=== PATIENT | male | born 1970 | race Caucasian/White ===

== ENCOUNTER 2016-10-28 12:19 | Emergency (ER) | payer SELFPAY ==
--- NOTE | 2016-10-28 13:04 | ER Document Report ---
ED Extremity Problem, Lower - General Chief Complaint: Leg Injury Stated Complaint: LEG PAIN Time seen by provider: 13:03 Mode of Arrival: Ambulatory Information source: Patient Notes: 45-year-old male presents to ED for pain in and out at times numbness to his left knee after a accident to his knee 3 weeks ago. He states he was walking into a trailer that carries mulch and the wood gave out below and he fell to the trailer) a wood. He states he has been to [facility] and was supposed to follow-up with also [facility] for an MRI and they moved to accident and has not followed up yet. States that his knee is much better but is still is pretty painful and he wanted to get an MRI. A sling to the patient that we do not do MRIs of been scheduled we do MRIs other emergent at that time. We will re-x-ray the knee and make sure there is no new findings and have him follow-up with the [facility] or so to get his mri TRAVEL OUTSIDE OF THE [place].S[place] IN LAST 30 DAYS: No - HPI Patient complains to provider of: Pain, Swelling Location: Knee Occurred: Other - 3 weeks ago Where: Work Onset/Duration: Intermittent Quality of pain: Achy Severity: Moderate Pain Level: 4 Context: Other Recent injury: Yes - Fell through a piece a rotten Wood 3 weeks ago Associated symptoms: Painful ambulation Exacerbated by: Movement, Walking Relieved by: Nothing - Related Data Allergies/Adverse Reactions: Penicillins Allergy (Verified 10/28/16 12:24) Past Medical History - General Information source: Patient - Social History Smoking Status: Current Every Day Smoker Cigarette use (# per day): Yes - pack per day Chew tobacco use (# tins/day): No Smoking Education Provided: Yes Frequency of alcohol use: None Drug Abuse: None Occupation: [employer] Lives with: Family Family History: Arthritis, Hyperlipidemia, Hypertension, Malignancy Patient has suicidal ideation: No Patient has homicidal ideation: No - Past Medical History Cardiac Medical History: Reports: None Pulmonary Medical History: Reports: None EENT Medical History: Reports: None Neurological Medical History: Reports: None Endocrine Medical History: Reports: Hx Diabetes Mellitus Type 2 Renal/ Medical History: Reports: None Malignancy Medical History: Reports None GI Medical History: Reports: Hx Gastroesophageal Reflux Disease Musculoskeltal Medical History: Reports Hx Arthritis Skin Medical History: Reports None Psychiatric Medical History: Reports: None Traumatic Medical History: Reports: Hx Pneumothorax Infectious Medical History: Reports: None Past Surgical History: Reports: Other Review of Systems - Review of Systems Constitutional: No symptoms reported EENT: No symptoms reported Cardiovascular: No symptoms reported Respiratory: No symptoms reported Gastrointestinal: No symptoms reported Genitourinary: No symptoms reported Male Genitourinary: No symptoms reported Musculoskeletal: Joint pain - Left knee, Joint swelling - (The Skin: No symptoms reported Hematologic/Lymphatic: No symptoms reported Neurological/Psychological: No symptoms reported Physical Exam - Vital signs Vitals: Temp Pulse Resp BP Pulse Ox 97.7 F 83 16 134/92 H 99 10/28/16 12:25 10/28/16 12:25 10/28/16 12:25 10/28/16 12:25 10/28/16 12:25 Interpretation: Normal - General General appearance: Appears well, Alert - HEENT Head: Normocephalic, Atraumatic Eyes: Normal Pupils: PERRL - Respiratory Respiratory status: No respiratory distress Chest status: Nontender Breath sounds: Normal Chest palpation: Normal - Cardiovascular Rhythm: Regular Heart sounds: Normal auscultation Murmur: No - Abdominal Inspection: Normal Distension: No distension Bowel sounds: Normal Tenderness: Nontender Organomegaly: No organomegaly - Back Back: Normal, Nontender - Extremities General upper extremity: Normal inspection, Normal color, Normal ROM, Normal strength, Normal temperature General lower extremity: Normal color, Normal temperature, Normal weight bearing. No: Bridget's sign Hip: Normal, Nontender Thigh: Normal, Nontender Knee: Tender, Pain with ROM, Other - Swollen area to left knee states he injured it 3 weeks ago Ankle: Normal, Nontender Foot: Normal, Nontender - Neurological Neuro grossly intact: Yes Cognition: Normal Orientation: AAOx4 Roxana Coma Scale Eye Opening: Spontaneous Roxana Coma Scale Verbal: Oriented Eula Coma Scale Motor: Obeys Commands Roxana Coma Scale Total: 15 Speech: Normal Motor strength normal: LUE, RUE, LLE, RLE Sensory: Normal - Psychological Associated symptoms: Normal affect, Normal mood - Skin Skin Temperature: Warm Skin Moisture: Dry Skin Color: Normal Course - Re-evaluation Re-evalutation: 10/28/16 14:14 Discussed x-ray with patient we'll give a written report to patient to follow- up with [facility]. Instructed patient that we do not do routine MRIs in the ER that he will need to follow-up with [facility] to be order that MRI. - Vital Signs Vital signs: Temp Pulse Resp BP Pulse Ox 98.5 F 72 16 120/72 98 10/28/16 14:30 10/28/16 14:30 10/28/16 14:30 10/28/16 14:30 10/28/16 14:30 - Diagnostic Test Radiology reviewed: Image reviewed, Reports reviewed Discharge - Discharge Clinical Impression: Knee pain, left Qualifiers: Chronicity: acute Qualified Code(s): M25.562 - Pain in left knee Condition: Stable Disposition: HOME, SELF-CARE Additional Instructions: He was seen today for recheck on a knee injury from 3 weeks ago. He requested MRI but we do not do routine MRIs in the emergency room. You will need to follow-up with [facility] to get the MRI rescheduled and done. Your x-ray is negative today we'll send a copy of the x-ray report with you to follow-up with [facility]. ICE & ELEVATION: Apply ice packs frequently against the painful area. Many different schedules are recommended, such as "20 minutes on, 20 minutes off" or "one hour ice, two hours rest." If you need to work, you may need to go longer between ice treatments. You should plan to have the area ice packed AT LEAST one- fourth of the time. The ice should be applied over the wrap, tape, or splint, or over a layer of cloth -- not directly against the skin. Some ice bags have a built-in cloth and can be put directly on the skin. Your injured part should be elevated as much as possible over the next 48 hours. Try to keep the injury above the level of the heart. Avoid use of the injured area. Elevation and rest will decrease the swelling. Anti-Inflammatory Medication You have received a prescription for an antiinflammatory agent. This is an excellent, safe drug for pain control. In addition, it has potent antiinflammatory effects which are beneficial, especially in the treatment of injuries, arthritis, or tendonitis. It's best to take this medicine with food. Persons with ulcer disease or allergy to aspirin should notify their physician of this before taking this drug. Take the medication exactly as prescribed. Don't take additional doses unless instructed to do so by your doctor. If you develop wheezing, shortness of breath, hives, faintness, stomach pain, vomiting, or dark black stools, return for re-evaluation at once. FOLLOW-UP CARE: If you have been referred to a physician for follow-up care, call the physician s office for an appointment as you were instructed or within the next two days. If you experience worsening or a significant change in your symptoms, notify the physician immediately or return to the Emergency Department at any time for re-evaluation. Prescriptions: Naproxen 500 mg PO BIDP PRN #14 tablet PRN Reason: Forms: Smoking Cessation Education, Elevated Blood Pressure
[2016-10-28] MEDS ORDERED: NAPROXEN 250 MG TABLET PO ONE (13:14)
[2016-10-28 14:34] VITALS: BP 120/72
== END 2016-10-28 14:30 | disposition home or self-care (01) ==
LOC: ER 12:19
DX: M25.562 Pain in left knee (principal); M25.462 Effusion, left knee; R20.0 Anesthesia of skin; W13.8XXA Fall from, out of or through other building or structure, initial encounter; Y99.0 Civilian activity done for income or pay; E11.9 Type 2 diabetes mellitus without complications; F17.210 Nicotine dependence, cigarettes, uncomplicated
CPT/HCPCS: 99283

== ENCOUNTER 2017-03-10 12:09 | Emergency (ER) | payer MEDICAID ==
[2017-03-10] MEDS ORDERED: PROCHLORPERAZINE EDISYLATE INJ 10 MG/2 ML VIAL IV ONE (12:22)
[2017-03-10] MEDS ORDERED: DIPHENHYDRAMINE HCL 50 MG/ML VIAL IV ONE (12:22)
--- NOTE | 2017-03-10 12:23 | ER Document Report ---
ED Medical Screen (RME) - General Chief Complaint: Headache Stated Complaint: HEADACHE Time Seen by Provider: 03/10/17 12:14 Mode of Arrival: Ambulatory Information source: Patient Notes: 46-year-old male diabetic who has not been checking his blood sugar presents with complaints of headache over the past few days patient denies any fevers or chills patient notes headache has been waxing waning over the past 3-4 days I have greeted and performed a rapid initial assessment of this patient. A comprehensive ED assessment and evaluation of the patient, analysis of test results and completion of the medical decision making process will be conducted by additional ED providers. PHYSICAL EXAMINATION: GENERAL: Well-appearing, well-nourished and in no acute distress. HEAD: Atraumatic, normocephalic. EYES: Pupils equal round extraocular movements intact, conjunctiva are normal. ENT: Nares patent NECK: Normal range of motion LUNGS: No respiratory distress Musculoskeletal: Normal range of motion NEUROLOGICAL: Normal speech, normal gait. PSYCH: Normal mood, normal affect. SKIN: Warm, Dry, normal turgor, no rashes or lesions noted. TRAVEL OUTSIDE OF THE [place] IN LAST 30 DAYS: No - Related Data Allergies/Adverse Reactions: Penicillins Allergy (Verified 03/10/17 12:11) Past Medical History - Social History Chew tobacco use (# tins/day): No Frequency of alcohol use: Occasional Drug Abuse: None Endocrine Medical History: Reports: Hx Diabetes Mellitus Type 2 Renal/ Medical History: Denies: Hx Peritoneal Dialysis GI Medical History: Reports: Hx Gastroesophageal Reflux Disease Musculoskeltal Medical History: Reports Hx Arthritis Traumatic Medical History: Reports: Hx Pneumothorax Surgical Hx: Negative Past Surgical History: Reports: Other - Immunizations Hx Diphtheria, Pertussis, Tetanus Vaccination: Yes Physical Exam - Vital signs Vitals: Temp Pulse Resp BP Pulse Ox 97.9 F 87 18 132/74 H 97 03/10/17 12:11 03/10/17 12:11 03/10/17 12:11 03/10/17 12:11 03/10/17 12:11 Course - Vital Signs Vital signs: Temp Pulse Resp BP Pulse Ox 97.9 F 87 18 132/74 H 97 03/10/17 12:11 03/10/17 12:11 03/10/17 12:11 03/10/17 12:11 03/10/17 12:11
[2017-03-10] MEDS ORDERED: METFORMIN HCL 500 MG TABLET PO ONE (12:42)
[2017-03-10] MEDS ORDERED: GLIPIZIDE 10 MG TABLET PO ONE (12:42)
--- NOTE | 2017-03-10 12:42 | ER Document Report ---
ED Headache - General Mode of Arrival: Ambulatory Information source: Patient TRAVEL OUTSIDE OF THE [place] IN LAST 30 DAYS: No - HPI Patient complains to provider of: Headache Onset: Other <RAMOS JOHNSON - Last Filed: 03/10/17 12:42> <DAKOTA SANDERS - Last Filed: 03/10/17 14:37> - General Chief Complaint: Headache Stated Complaint: HEADACHE Time Seen by Provider: 03/10/17 12:14 - HPI Notes: Patient is a 46-year-old male presented emergency department for headache. Patient states his headache has been present for 4 days now. Patient's headache was waxing and waning at first and relieved with Aleve however, now the patient's headache is persistent. Patient states his headache is located across his forehead and into his temples. Patient denies any fever or chills. Patient states that he has not been sleeping well at night because of his headaches, and states that he has been drinking Gatorade and water. Patient is a diabetic and has not been checking his blood glucose levels. Patient recently moved here from [place] and does not have a primary care physician in the area. Patient does have medicaid. Patient takes Metformin and glipizide for his diabetes and he states he has ran out of both of these medications x 1 week. Patient also takes a medication for mood swings but he does not know the name of it; patient gets his mood medication from [facility] in [place], [place]. Patient is allergic to penicillins. (RAMOS JOHNSON) - Related Data Allergies/Adverse Reactions: Penicillins Allergy (Verified 03/10/17 12:11) Past Medical History - General Information source: Patient - Social History Smoking Status: Current Every Day Smoker Chew tobacco use (# tins/day): No Frequency of alcohol use: Occasional Drug Abuse: None Family History: Arthritis, Hyperlipidemia, Hypertension, Malignancy Patient has suicidal ideation: No Patient has homicidal ideation: No Endocrine Medical History: Reports: Hx Diabetes Mellitus Type 2 GI Medical History: Reports: Hx Gastroesophageal Reflux Disease Musculoskeltal Medical History: Reports Hx Arthritis Traumatic Medical History: Reports: Hx Pneumothorax Surgical Hx: Negative - Immunizations Hx Diphtheria, Pertussis, Tetanus Vaccination: Yes <RAMOS JOHNSON - Last Filed: 03/10/17 12:42> Review of Systems - Review of Systems Constitutional: No symptoms reported EENT: No symptoms reported Cardiovascular: No symptoms reported Respiratory: No symptoms reported Gastrointestinal: No symptoms reported. denies: Diarrhea, Nausea, Vomiting Genitourinary: No symptoms reported Male Genitourinary: No symptoms reported Musculoskeletal: No symptoms reported Skin: No symptoms reported Hematologic/Lymphatic: No symptoms reported Neurological/Psychological: See HPI, Headaches -: Yes All other systems reviewed and negative <ELIZABETHMEETRAMOS - Last Filed: 03/10/17 12:42> Physical Exam - Vital signs Interpretation: Normal <RAMOS JOHNSON - Last Filed: 03/10/17 12:42> <DAKOTA SANDERS - Last Filed: 03/10/17 14:37> - Vital signs Vitals: Temp Pulse Resp BP Pulse Ox 97.9 F 87 18 132/74 H 97 03/10/17 12:11 03/10/17 12:11 03/10/17 12:11 03/10/17 12:11 03/10/17 12:11 - Notes Notes: GENERAL: Alert, interacts well. Mild distress. HEAD: Normocephalic, atraumatic, tenderness to palpate over the frontal scalp and temporal region. EYES: Appear normal. Pupils equal, round, and reactive to light. ENT: Moist mucus membranes, tongue midline. NECK: Full range of motion. Supple. Trachea midline. No tenderness with palpation to the posterior cervical musculature. LUNGS: Clear to auscultation bilaterally, no wheezes, rales, or rhonchi. No respiratory distress. HEART: Regular rate and rhythm. No murmurs, gallops, or rubs. ABDOMEN: Soft, non-tender. Non-distended. Normal bowel sounds. EXTREMITIES: Moves all 4 extremities spontaneously. Normal strength. No edema. NEUROLOGICAL: Alert and oriented x3. Normal speech. No focal neurological deficits. GSC 15. PSYCH: Normal affect, normal mood. SKIN: Warm, dry, normal turgor. No rashes or lesions noted. (RAMOS JOHNSON) Course - Laboratory Result Diagrams: 03/10/17 12:25 03/10/17 12:25 <RAMOS JOHNSON - Last Filed: 03/10/17 12:42> - Laboratory Result Diagrams: 03/10/17 12:25 03/10/17 12:25 <DAKOTA SANDERS - Last Filed: 03/10/17 14:37> - Re-evaluation Re-evalutation: 03/10/17 14:21 The patient was sleeping soundly. He was awakened for reexam. He states he does feel little bit better, there is still some scalp muscle tenderness to palpate. (DAKOTA SANDERS) - Vital Signs Vital signs: Temp Pulse Resp BP Pulse Ox 97.9 F 83 16 130/87 H 97 03/10/17 12:11 03/10/17 13:54 03/10/17 13:54 03/10/17 13:54 03/10/17 12:11 - Laboratory Laboratory results interpreted by me: 03/10/17 03/10/17 12:25 12:25 MCH 26.8 L Sodium 136.5 L Glucose 375 H Discharge <RAMOS JOHNSON - Last Filed: 03/10/17 12:42> <DAKOTA SANDERS - Last Filed: 03/10/17 14:37> - Discharge Clinical Impression: Tension type headache Qualifiers: Headache chronicity pattern: acute headache Intractability: not intractable Qualified Code(s): G44.209 - Tension-type headache, unspecified, not intractable Hyperglycemia due to type 2 diabetes mellitus Qualifiers: Diabetes mellitus skilled nursing insulin use: without skilled nursing use Qualified Code(s ): E11.65 - Type 2 diabetes mellitus with hyperglycemia Condition: Stable Disposition: HOME, SELF-CARE Additional Instructions: Tension Headache: Your problem has been diagnosed as muscle tension headache. This very common type of headache occurs because of tightness in the muscles of the head and neck. The cause may be neck or jaw joint problems, but most commonly the cause is emotional stress. The headache may last hours or days. The treatment of uncomplicated tension headaches is rest and pain medication. Often, the newer antiinflammatory pain medications are prescribed, as these also decrease the irritability of the painful tissues. Muscle relaxers , cold packs, or warm packs are sometimes helpful. Anti-anxiety medication or narcotics are sometimes needed temporarily, but are best avoided in the long run. Your doctor has evaluated your headache problem, and finds no evidence of a serious health problem as a cause for the headache. If your headache becomes more severe, or if new symptoms develop (such as fever, stiff neck, vomiting, or decreasing alertness) you should be re-examined by the physician. TAKE THE MEDICATION PRESCRIBED FOR HEADACHE AND DIABETES. REST TODAY IN A COOL, QUIET, DARK ROM. FOLLOW UP WITH A LOCAL MEDICAL DOCTOR THIS WEEK FOR RECHECK AND TO START MANAGEMENT OF YOUR DIABETES. RETURN TO THE EMERGENCY ROOM IF ANY NEW OR WORSENING SYMPTOMS. Prescriptions: Glipizide [Glucotrol 5 mg Tablet] 5 mg PO DAILY #30 tablet Metformin HCl 500 mg PO BID #60 tablet Prochlorperazine Maleate [Compazine 10 mg Tablet] 10 mg PO ASDIR PRN #10 tablet PRN Reason: Scribe Attestation: 03/10/17 14:36 I personally performed the services described in the documentation, reviewed and edited the documentation which was dictated to the scribe in my presence, and it accurately records my words and actions. (DAKOTA SANDERS) Scribe Documentation - Scribe Written by Donovan:: Donovan Abad 03/10/2017 13:00 acting as scribe for :: Paula <RAMOS JOHNSON - Last Filed: 03/10/17 12:42>
[2017-03-10 12:53] LABS: ABSOLUTE EOSINOPHILS # (AUTO) 0.1 10^3/uL (0.0-0.6); ABSOLUTE LYMPHOCYTES (AUTO) 2.2 10^3/uL (0.5-4.7); ABSOLUTE MONOCYTES (AUTO) 0.4 10^3/uL (0.1-1.4); BASOPHILS % (AUTO) 0.3 % (0-2); EOSINOPHILS % (AUTO) 1.4 % (0-6); HEMATOCRIT 42.2 % (37.9-51.0); HGB HCT DIFFERENCE -0.2; LYMPHOCYTES % (AUTO) 28.4 % (13-45); MEAN CORPUSCULAR HEMOGLOBIN 26.8 pg (27.0-33.4); MEAN CORPUSCULAR HGB CONC 33.1 g/dL (32.0-36.0); MEAN CORPUSCULAR VOLUME 81 fl (80-97); MONOCYTES % (AUTO) 5.3 % (3-13); RED BLOOD COUNT 5.21 10^6/uL (4.35-5.55); RED CELL DISTRIBUTION WIDTH 13.3 % (11.5-14.0); SEGMENTED NEUTROPHILS % (AUTO) 64.6 % (42-78); WHITE BLOOD COUNT 7.7 10^3/uL (4.0-10.5)
[2017-03-10 13:03] LABS: ALANINE AMINOTRANSFERASE 43 U/L (21-72); ALBUMIN 4.1 g/dL (3.5-5.0); ALKALINE PHOSPHATASE 74 U/L (38-126); ANION GAP 11 (5-19); ASPARTATE AMINO TRANSFERASE 21 U/L (17-59); BILIRUBIN,DIRECT 0.3 mg/dL (0.0-0.4); BILIRUBIN,TOTAL 0.6 mg/dL (0.2-1.3); BLOOD UREA NITROGEN 13 mg/dL (7-20); CALCIUM 9.4 mg/dL (8.4-10.2); CARBON DIOXIDE 24 mmol/L (22-30); CHLORIDE 102 mmol/L (98-107); CREATININE RESULT 1.05 mg/dL (0.52-1.25); GLUCOSE 375 mg/dL (75-110); POTASSIUM 4.4 mmol/L (3.6-5.0); SODIUM 136.5 mmol/L (137-145); TOTAL PROTEIN 7.1 g/dL (6.3-8.2)
[2017-03-10] MEDS ORDERED: KETOROLAC TROMETHAMINE INJ/PF 30 MG/1 ML SDV IV ONE (13:17)
[2017-03-10 14:40] VITALS: BP 115/71
== END 2017-03-10 14:41 | disposition home or self-care (01) ==
LOC: ER 12:09
DX: G44.209 Tension-type headache, unspecified, not intractable (principal); E11.65 Type 2 diabetes mellitus with hyperglycemia; T38.3X6A Underdosing of insulin and oral hypoglycemic [antidiabetic] drugs, initial encounter; Z91.128 Patient's intentional underdosing of medication regimen for other reason; Z91.14 Patient's other noncompliance with medication regimen; F39 Unspecified mood [affective] disorder; Z79.899 Other long term (current) drug therapy; F17.200 Nicotine dependence, unspecified, uncomplicated; Z88.0 Allergy status to penicillin
CPT/HCPCS: 99284; 96374; 96375; 36415; 82962; 85025; 80053; J1200; J3490 ×2; J1885; J0780

== ENCOUNTER 2017-05-05 16:38 | Emergency (ER) | payer MEDICAID ==
[2017-05-05] MEDS ORDERED: PREDNISONE 20 MG TABLET PO ONE (17:51)
[2017-05-05] MEDS ORDERED: AZITHROMYCIN 250 MG TABLET PO ONE (17:51)
--- NOTE | 2017-05-05 17:54 | ER Document Report ---
HPI - HPI Patient complains to provider of: cough, congestion Pain Level: 4 Context: Patient is a 46-year-old male who comes emergency department for chief complaint of cough, chest congestion, sinus congestion and pressure. He denies fever. He states he feels like he is wheezing intermittently. He is a former smoker. He has type 2 diabetes, medicated. - DERM Skin Color: Normal Past Medical History - General Information source: Patient - Social History Smoking Status: Former Smoker Frequency of alcohol use: None Drug Abuse: None Lives with: Family Family History: Arthritis, Hyperlipidemia, Hypertension, Malignancy Endocrine Medical History: Reports: Hx Diabetes Mellitus Type 2 Renal/ Medical History: Denies: Hx Peritoneal Dialysis GI Medical History: Reports: Hx Gastroesophageal Reflux Disease Musculoskeltal Medical History: Reports Hx Arthritis Traumatic Medical History: Reports: Hx Pneumothorax Past Surgical History: Reports: Other - Immunizations Hx Diphtheria, Pertussis, Tetanus Vaccination: Yes Vertical Provider Document - CONSTITUTIONAL General Appearance: WD/WN, No Apparent Distress - INFECTION CONTROL TRAVEL OUTSIDE OF THE [place] IN LAST 30 DAYS: No - HEENT HEENT: negative: Normal ENT Exam - Mild tenderness over both maxillary sinuses, some sinus congestion, unremarkable pharyngeal exam, normal ENT exam otherwise - RESPIRATORY Respiratory: Other - A few scattered coarse breath sounds, no wheezing, otherwise unremarkable respiratory examination O2 Sat by Pulse Oximetry: 97 - CARDIOVASCULAR Cardiovascular: Regular Rate, Regular Rhythm - GI/ABDOMEN Gastrointestinal: Abdomen Soft, Abdomen Non-Tender - MUSCULOSKELETAL/EXTREMETIES Musculoskeletal/Extremeties: MAEW, FROM, Non-Tender - NEURO Level of Consciousness: Awake, Alert, Appropriate Motor/Sensory: No Motor Deficit, No Sensory Deficit - DERM Integumentary: Warm, Dry, No Rash Course - Re-evaluation Re-evalutation: Reported symptoms and examination are most suggestive of bronchitis, lung auscultation and symptoms do not suggest pneumonia, patient also has symptoms and exam suggestive of sinus infection. Discussed with patient, x-ray was declined. Discussed potential hyperglycemia with prednisone, discussed pros and cons, patient states he would like to be treated with this, he will reduce his carbohydrate intake, patient will to be given azithromycin for her sinuses/ prevention of pneumonia. Discussed follow-up, return precautions, patient states understanding and agreement. - Vital Signs Vital signs: Temp Pulse Resp BP Pulse Ox 98.2 F 97 16 116/73 97 10/15/17 16:51 05/05/17 16:51 05/05/17 16:51 05/05/17 16:51 05/05/17 16:51 Discharge - Discharge Clinical Impression: Cough, Chest congestion Sinusitis Qualifiers: Sinusitis location: unspecified location Chronicity: acute Recurrence: non- recurrent Qualified Code(s): J01.90 - Acute sinusitis, unspecified Condition: Stable Disposition: HOME, SELF-CARE Additional Instructions: Your examination is consistent with bronchitis and sinus infection. Take the antibiotic as prescribed to completion, take the prednisone as prescribed, because this can raise your blood sugar, please avoid carbohydrates and continue your current diabetic medication. Continue [id number] medications such as Mucinex. Follow-up with primary care. Return to the emergency department for any concerning or worsening symptoms including difficulty breathing, fever, or any other concerning symptoms. Prescriptions: Azithromycin [Zithromax 250 mg Tablet] 250 mg PO DAILY #4 tablet Prednisone [Deltasone 10 mg Tablet] 10 mg PO ASDIR PRN #21 tablet PRN Reason: Forms: Return to Work
[2017-05-05 18:35] VITALS: BP 122/74
== END 2017-05-05 18:37 | disposition home or self-care (01) ==
LOC: ER 16:38
DX: J01.90 Acute sinusitis, unspecified (principal); R05 Cough; R09.89 Other specified symptoms and signs involving the circulatory and respiratory systems; E11.9 Type 2 diabetes mellitus without complications
CPT/HCPCS: 99283; Q0144; J7512

== ENCOUNTER 2017-06-01 16:21 | Emergency (ER) | payer MEDICAID ==
[2017-06-01 16:28] VITALS: BP 125/83
[2017-06-01] MEDS ORDERED: IBUPROFEN 800 MG TABLET PO ONE (17:21)
--- NOTE | 2017-06-01 17:27 | ER Document Report ---
ED Extremity Problem, Upper - General Chief Complaint: Arm Injury Stated Complaint: LEFT ARM AND WRIST PAIN Time Seen by Provider: 06/01/17 16:57 Mode of Arrival: Ambulatory Information source: Patient Notes: 46-year-old male presents to ED for complaint of left wrist pain going up his arm. He states he works at [employer] on Saturday he was pulling on some branches tree limbs and he thinks that when he hurt his arm. He says now when he moves his wrist to go snap crackle and pop. He states he took one Aleve on Saturday and 400 mg of ibuprofen on 11 AM this morning other than that he has not taken any medication for the pain or use any ice or elevation. TRAVEL OUTSIDE OF THE [place] IN LAST 30 DAYS: No - HPI Patient complains to provider of: Left, Forearm, Wrist Onset: Other - Saturday Recent injury: Possibly Where: Outdoors, Work Quality of pain: Achy, Throbbing Severity of pain: Severe Pain Level: 5 Context: Other - On branches Associated symptoms: Tingling - States the tingling in his wrist scared him Exacerbated by: Movement, Exertion Relieved by: Rest, Positioning Similar symptoms previously: No - Related Data Allergies/Adverse Reactions: Penicillins Allergy (Verified 06/01/17 16:26) Past Medical History - General Information source: Patient - Social History Smoking Status: Former Smoker Cigarette use (# per day): No Chew tobacco use (# tins/day): No Smoking Education Provided: No Frequency of alcohol use: None Drug Abuse: None Occupation: [employer] Lives with: Family Family History: Arthritis, Hyperlipidemia, Hypertension, Malignancy Patient has suicidal ideation: No Patient has homicidal ideation: No - Past Medical History Cardiac Medical History: Reports: Hx Hypertension Pulmonary Medical History: Reports: None EENT Medical History: Reports: None Neurological Medical History: Reports: None Endocrine Medical History: Reports: Hx Diabetes Mellitus Type 2 Renal/ Medical History: Reports: None Malignancy Medical History: Reports None GI Medical History: Reports: Hx Gastroesophageal Reflux Disease Musculoskeltal Medical History: Reports Hx Arthritis Skin Medical History: Reports None Psychiatric Medical History: Reports: Hx Bipolar Disorder Traumatic Medical History: Reports: Hx Pneumothorax - Spontaneous Infectious Medical History: Reports: None Past Surgical History: Reports: Other - Chest tube for spontaneous pneumothorax - Immunizations Immunizations up to date: Yes Hx Diphtheria, Pertussis, Tetanus Vaccination: Yes Review of Systems - Review of Systems Constitutional: No symptoms reported EENT: No symptoms reported Cardiovascular: No symptoms reported Respiratory: No symptoms reported Gastrointestinal: No symptoms reported Genitourinary: No symptoms reported Male Genitourinary: No symptoms reported Musculoskeletal: Other - Left wrist pain and tingling Skin: No symptoms reported Hematologic/Lymphatic: No symptoms reported Neurological/Psychological: No symptoms reported -: Yes All other systems reviewed and negative Physical Exam - Vital signs Vitals: Temp Pulse Resp BP Pulse Ox 97.7 F 92 16 125/83 98 06/01/17 16:26 06/01/17 16:26 06/01/17 16:26 06/01/17 16:26 06/01/17 16:26 Interpretation: Normal - General General appearance: Appears well, Alert - HEENT Head: Normocephalic, Atraumatic Eyes: Normal Pupils: PERRL - Respiratory Respiratory status: No respiratory distress Chest status: Nontender Breath sounds: Normal Chest palpation: Normal - Cardiovascular Rhythm: Regular Heart sounds: Normal auscultation Murmur: No - Abdominal Inspection: Normal Distension: No distension Bowel sounds: Normal Tenderness: Nontender Organomegaly: No organomegaly - Back Back: Normal, Nontender - Extremities General upper extremity: Normal color, Normal temperature General lower extremity: Normal inspection, Nontender, Normal color, Normal ROM , Normal temperature, Normal weight bearing. No: Bridget's sign Forearm: Tender. No: Abrasion, Deformity, Ecchymosis, Instability, Laceration Wrist: Tender, Axial load of thumb pain. No: Abrasion, Deformity, Dislocation, Ecchymosis, Instability, Laceration, Limited ROM, Navicular tenderness Hand: Tender, No evidence of human bite, No evidence of FB. No: Abrasion, Deformity, Dislocation, Ecchymosis, Instability, Laceration, Nail injury, Swelling, Tendon deficit - Neurological Neuro grossly intact: Yes Cognition: Normal Orientation: AAOx4 Gay Coma Scale Eye Opening: Spontaneous [place] Coma Scale Verbal: Oriented [place] Coma Scale Motor: Obeys Commands [place] Coma Scale Total: 15 Speech: Normal Motor strength normal: LUE, RUE, LLE, RLE Sensory: Normal - Psychological Associated symptoms: Normal affect, Normal mood - Skin Skin Temperature: Warm Skin Moisture: Dry Skin Color: Normal Course - Re-evaluation Re-evalutation: 06/01/17 20:27 Discussed x-ray with patient and x-ray report given to patient for follow-up with orthopedics. Patient is given instructions on elevation ice ibuprofen for his pain. - Vital Signs Vital signs: Temp Pulse Resp BP Pulse Ox 97.7 F 92 16 125/83 98 06/01/17 16:26 06/01/17 16:26 06/01/17 16:26 06/01/17 16:26 06/01/17 16:26 - Diagnostic Test Radiology reviewed: Image reviewed, Reports reviewed Procedures - Immobilization Left Wrist Time completed: 18:20 Immobilizer type: Cock-up Performed by: SAMMY Post-Proc Neuro Vasc Exam: Normal Alignment checked and good: Yes Discharge - Discharge Clinical Impression: Left wrist pain Condition: Stable Disposition: HOME, SELF-CARE Additional Instructions: He was seen today for left wrist pain. X-ray shows degenerative changes to the left wrist. SPLINT PRECAUTIONS: A splint has been placed. This will protect the area while healing begins. Your problem does NOT normally require a cast. It MUST, however, be held still! Keep the splint on ALL THE TIME until instructed to remove it by the doctor. As you begin to use the area, be careful. You shouldn't do anything which causes discomfort -- you may disturb the injury even with the splint in place. After the initial period of rest and elevation, if splint does not prevent pain when you move, come back. You may require placement of a different splint , or a cast. If there is unexpected severe pain, or numbness, discoloration, or swelling beyond the splint, you should return at once. If you feel that the splint has broken or become loose, come back. ICE & ELEVATION: Apply ice packs frequently against the painful area. Many different schedules are recommended, such as "20 minutes on, 20 minutes off" or "one hour ice, two hours rest." If you need to work, you may need to go longer between ice treatments. You should plan to have the area ice packed AT LEAST one- fourth of the time. The ice should be applied over the wrap, tape, or splint, or over a layer of cloth -- not directly against the skin. Some ice bags have a built-in cloth and can be put directly on the skin. Your injured part should be elevated as much as possible over the next 48 hours. Try to keep the injury above the level of the heart. Avoid use of the injured area. Elevation and rest will decrease the swelling. USE OF [id number] IBUPROFEN: Ibuprofen (Advil, Nuprin, Medipren, Motrin IB) is a medication for fever and pain control. In addition, it has anti- inflammatory effects which may be beneficial, especially in the treatment of injuries. It's best to take ibuprofen with food. Persons with ulcer disease or allergy to aspirin should notify their physician of this before taking ibuprofen. Ibuprofen can be given every four to six hours, for a total of four doses daily. Age Pain or fever dose Antiinflammatory dose 6-8 yr 200 mg (1 tab) 200 mg (1 tab) 9-11 yr 200 mg (1 tab) 200-400 mg (1-2 tab) 11-14 yr 200-400 mg (1-2 tab) 400 mg (2 tab) 15-adult 400 mg (2 tab) 600 mg (3 tab) FOLLOW-UP CARE: If you have been referred to a physician for follow-up care, call the physician s office for an appointment as you were instructed or within the next two days. If you experience worsening or a significant change in your symptoms, notify the physician immediately or return to the Emergency Department at any time for re-evaluation. Prescriptions: Ibuprofen 600 mg PO Q6HP PRN #20 tablet PRN Reason: Forms: Return to Work Referrals: VALENTIN JEAN, [ACTIVE STAFF] - Follow up as needed
--- NOTE | 2017-06-01 17:49 | RADIOLOGY REPORT (SQ) ---
EXAM DESCRIPTION: WRIST LEFT 3 VIEWS COMPLETED DATE/TIME: 06/01/2017 5:38 pm REASON FOR STUDY: pain and injury COMPARISON: None. NUMBER OF VIEWS: Three views. TECHNIQUE: AP, lateral, and oblique radiographic images acquired of the left wrist. LIMITATIONS: None. FINDINGS: MINERALIZATION: Normal. BONES: No acute fracture or dislocation. No worrisome bone lesions. Normal alignment. Incidental n ote is made of degenerative changes at the thumb carpal metacarpal joint. SOFT TISSUES: No soft tissue swelling. No foreign body. OTHER: No other significant finding. IMPRESSION: No evidence of acute osseous injury. Background of early degenerative change. TECHNICAL DOCUMENTATION: JOB ID: [id number] [employer]- All Rights Reserved
== END 2017-06-01 18:16 | disposition home or self-care (01) ==
LOC: ER 16:21
DX: M25.532 Pain in left wrist (principal); R20.2 Paresthesia of skin; E11.9 Type 2 diabetes mellitus without complications; I10 Essential (primary) hypertension; Z88.0 Allergy status to penicillin; Z87.891 Personal history of nicotine dependence
CPT/HCPCS: 99283; 73110; L3908; J3490

== ENCOUNTER 2017-07-24 08:20 | Emergency (ER) | payer MEDICAID ==
[2017-07-24] MEDS ORDERED: NORMAL SALINE 1000 ML 1,000 ML IV ONE (09:21)
[2017-07-24 09:56] LABS: ABSOLUTE LYMPHOCYTES (AUTO) 1.6 10^3/uL (0.5-4.7); ABSOLUTE MONOCYTES (AUTO) 0.5 10^3/uL (0.1-1.4); ABSOLUTE NEUT (AUTO) 4.2 10^3/uL (1.7-8.2); BASOPHILS % (AUTO) 0.6 % (0-2); EOSINOPHILS % (AUTO) 0.2 % (0-6); HEMATOCRIT 49.8 % (37.9-51.0); HEMOGLOBIN 16.6 g/dL (13.5-17.0); LYMPHOCYTES % (AUTO) 25.3 % (13-45); MEAN CORPUSCULAR HEMOGLOBIN 26.1 pg (27.0-33.4); MEAN CORPUSCULAR HGB CONC 33.3 g/dL (32.0-36.0); MEAN CORPUSCULAR VOLUME 79 fl (80-97); MONOCYTES % (AUTO) 7.4 % (3-13); PLATELET COUNT 231 10^3/uL (150-450); RED BLOOD COUNT 6.34 10^6/uL (4.35-5.55); RED CELL DISTRIBUTION WIDTH 13.4 % (11.5-14.0); SEGMENTED NEUTROPHILS % (AUTO) 66.5 % (42-78); TOTAL CELLS COUNTED % (AUTO) 100 %; WHITE BLOOD COUNT 6.3 10^3/uL (4.0-10.5)
[2017-07-24 10:03] LABS: ALANINE AMINOTRANSFERASE 44 U/L (21-72); ALBUMIN 4.6 g/dL (3.5-5.0); ALKALINE PHOSPHATASE 101 U/L (38-126); ANION GAP 16 (5-19); ASPARTATE AMINO TRANSFERASE 20 U/L (17-59); BILIRUBIN,DIRECT 0.3 mg/dL (0.0-0.4); BILIRUBIN,TOTAL 0.8 mg/dL (0.2-1.3); BLOOD UREA NITROGEN 18 mg/dL (7-20); CALCIUM 10.1 mg/dL (8.4-10.2); CARBON DIOXIDE 28 mmol/L (22-30); CHLORIDE 96 mmol/L (98-107); GLUCOSE 292 mg/dL (75-110); POTASSIUM 4.7 mmol/L (3.6-5.0); SODIUM 140.3 mmol/L (137-145); TOTAL PROTEIN 7.9 g/dL (6.3-8.2)
--- NOTE | 2017-07-24 10:32 | RADIOLOGY REPORT (SQ) ---
EXAM DESCRIPTION: CHEST PA/LAT COMPLETED DATE/TIME: 07/24/2017 9:44 am REASON FOR STUDY: cough COMPARISON: AP chest 05/26/2017 EXAM PARAMETERS: NUMBER OF VIEWS: two views TECHNIQUE: Digital Frontal and Lateral radiographic views of the chest acquired. RADIATION DOSE: NA LIMITATIONS: none FINDINGS: LUNGS AND PLEURA: No opacities, masses or pneumothorax. No pleural effusion. MEDIASTINUM AND HILAR STRUCTURES: No masses or contour abnormalities. HEART AND VASCULAR STRUCTURES: Heart normal size. No evidence for failure. BONES: No acute findings. HARDWARE: None in the chest. OTHER: No other significant finding. IMPRESSION: NO SIGNIFICANT RADIOGRAPHIC FINDING IN THE CHEST. TECHNICAL DOCUMENTATION: JOB ID: [id number] [employer]- All Rights Reserved
[2017-07-24 11:09] LABS: APPEARANCE,URINE CLEAR; BILIRUBIN,URINE NEGATIVE (NEGATIVE); COLOR,URINE YELLOW; GLUCOSE, URINE >=500 mg/dL (NEGATIVE); KETONES,URINE NEGATIVE (NEGATIVE); LEUKOCYTE ESTERASE,URINE NEGATIVE (NEGATIVE); NITRITE,URINE NEGATIVE (NEGATIVE); PROTEIN,URINE 30 mg/dL (NEGATIVE); URINE SPECIFIC GRAVITY 1.033; UROBILINOGEN,URINE NEGATIVE mg/dL (<2.0)
--- NOTE | 2017-07-24 11:29 | ER Document Report ---
ED Blood Sugar Problem - General Chief Complaint: High Blood Sugar Stated Complaint: COUGH Time Seen by Provider: 07/24/17 09:21 Mode of Arrival: Ambulatory Information source: Patient Notes: Patient presents stating that he has had a dry cough with some left-sided chest pain every time he comes. The pain is sharp and intermittent. It is made worse with coughing and better when he does not cough. There is no radiation of the pain. It is moderate. He also states his blood sugars have been elevated. No vomiting or diarrhea. No fevers. TRAVEL OUTSIDE OF THE [place] IN LAST 30 DAYS: No - Related Data Allergies/Adverse Reactions: Penicillins Allergy (Verified 07/24/17 08:21) Past Medical History - General Information source: Patient - Social History Smoking Status: Never Smoker Chew tobacco use (# tins/day): No Frequency of alcohol use: None Drug Abuse: None Family History: Arthritis, Hyperlipidemia, Hypertension, Malignancy Patient has suicidal ideation: No Patient has homicidal ideation: No - Past Medical History Cardiac Medical History: Reports: Hx Hypertension Endocrine Medical History: Reports: Hx Diabetes Mellitus Type 2 Renal/ Medical History: Denies: Hx Peritoneal Dialysis GI Medical History: Reports: Hx Gastroesophageal Reflux Disease Musculoskeltal Medical History: Reports Hx Arthritis Psychiatric Medical History: Reports: Hx Bipolar Disorder Traumatic Medical History: Reports: Hx Pneumothorax - Spontaneous Past Surgical History: Reports: Other - Chest tube for spontaneous pneumothorax - Immunizations Immunizations up to date: Yes Hx Diphtheria, Pertussis, Tetanus Vaccination: Yes Review of Systems - Review of Systems Constitutional: Malaise, Weakness. denies: Fever Cardiovascular: Chest pain. denies: Palpitations Respiratory: Cough. denies: Short of breath Gastrointestinal: denies: Diarrhea, Vomiting -: Yes All other systems reviewed and negative Physical Exam - Vital signs Vitals: Temp Pulse Resp BP Pulse Ox 98.1 F 103 H 16 146/91 H 97 07/24/17 08:26 07/24/17 08:26 07/24/17 08:26 07/24/17 08:26 07/24/17 08:26 Interpretation: Hypertensive - General General appearance: Appears well, Alert - HEENT Head: Normocephalic, Atraumatic Eyes: Normal Pupils: PERRL - Respiratory Respiratory status: No respiratory distress Chest status: Nontender Breath sounds: Normal Chest palpation: Normal - Cardiovascular Rhythm: Regular Heart sounds: Normal auscultation Murmur: No - Abdominal Inspection: Normal Distension: No distension Bowel sounds: Normal Tenderness: Nontender Organomegaly: No organomegaly - Back Back: Normal, Nontender - Extremities General upper extremity: Normal inspection, Nontender, Normal color, Normal ROM , Normal temperature General lower extremity: Normal inspection, Nontender, Normal color, Normal ROM , Normal temperature, Normal weight bearing. No: Bridget's sign - Neurological Neuro grossly intact: Yes Cognition: Normal Orientation: AAOx4 Eula Coma Scale Eye Opening: Spontaneous [place] Coma Scale Verbal: Oriented [place] Coma Scale Motor: Obeys Commands Eula Coma Scale Total: 15 Speech: Normal Motor strength normal: LUE, RUE, LLE, RLE Sensory: Normal - Psychological Associated symptoms: Normal affect, Normal mood - Skin Skin Temperature: Warm Skin Moisture: Dry Skin Color: Normal Course - Vital Signs Vital signs: Temp Pulse Resp BP Pulse Ox 98.1 F 103 H 16 146/91 H 97 07/24/17 08:26 07/24/17 08:26 07/24/17 08:26 07/24/17 08:26 07/24/17 08:26 - Laboratory Result Diagrams: 07/24/17 09:35 07/24/17 09:35 Laboratory results interpreted by me: 07/24/17 07/24/17 07/24/17 09:19 09:35 09:35 RBC 6.34 H MCV 79 L MCH 26.1 L Chloride 96 L Glucose 292 H POC Glucose 297 H Urine Protein Urine Glucose (UA) 07/24/17 09:35 RBC MCV MCH Chloride Glucose POC Glucose Urine Protein 30 H Urine Glucose (UA) >=500 H Discharge - Discharge Clinical Impression: Hyperglycemia URI (upper respiratory infection) Qualifiers: URI type: unspecified URI Qualified Code(s): J06.9 - Acute upper respiratory infection, unspecified Condition: Stable Disposition: HOME, SELF-CARE Instructions: Hyperglycemia ([facility]), Upper Respiratory Illness ([facility]) Additional Instructions: Your blood pressure is elevated. Please have this rechecked within 1 week by your doctor. Please increase your metformin to 1000 mg in the morning and 500mg in the evening. Please have your blood sugar rechecked within 3-5 days by your physician. Prescriptions: Hydrocodone/Acetaminophen [[place] 5-325 mg Tablet] 1 tab PO Q6 PRN 2 Days #10 tablet PRN Reason: Forms: Elevated Blood Pressure, Return to Work Referrals: ANNA EASTMAN MD [COMMUNITY BASED STAFF] - Follow up in 1 week
[2017-07-24 12:22] VITALS: BP 134/84
== END 2017-07-24 12:38 | disposition home or self-care (01) ==
LOC: ER 08:20
DX: J06.9 Acute upper respiratory infection, unspecified (principal); E11.65 Type 2 diabetes mellitus with hyperglycemia; R05 Cough; R07.9 Chest pain, unspecified
CPT/HCPCS: 99283; 96360; 36415; 82962; 85025; 80053; 81001; 71046; J7030

== ENCOUNTER 2017-08-24 06:56 | Emergency (ER) | payer MEDICAID ==
--- NOTE | 2017-08-24 08:03 | ER Document Report ---
ED General - General Chief Complaint: General Weakness Stated Complaint: FLU LIKE SYMPTOMS Time Seen by Provider: 08/24/17 07:17 Mode of Arrival: Ambulatory Information source: Patient Notes: 46-year-old male diabetic presents with vague complaints of intermittent not feeling well. Patient notes since he has been having on and off symptoms where he feels perfectly fine and then feels very tired and then feels fine again, he denies any chest pain denies any shortness of breath he admits to having chills with no fever generalized back pain intermittent cough. Patient also notes that he has chronic numbness of the left anterior leg post trauma over a year ago but that this is not new, he does note intermittent heartburn which he also chronically has TRAVEL OUTSIDE OF THE [place] IN LAST 30 DAYS: No - HPI Onset: Other - 3 day duration Onset/Duration: Intermittent Quality of pain: Achy Severity: Mild Pain Level: 1 Associated symptoms: Other Exacerbated by: Denies Relieved by: Denies Similar symptoms previously: No Recently seen / treated by doctor: No - Related Data Allergies/Adverse Reactions: Penicillins Allergy (Verified 07/24/17 08:21) Past Medical History - Social History Smoking Status: Never Smoker Cigarette use (# per day): No Chew tobacco use (# tins/day): No Smoking Education Provided: No Family History: Arthritis, Hyperlipidemia, Hypertension, Malignancy - Past Medical History Cardiac Medical History: Reports: Hx Hypertension Endocrine Medical History: Reports: Hx Diabetes Mellitus Type 2 Renal/ Medical History: Denies: Hx Peritoneal Dialysis GI Medical History: Reports: Hx Gastroesophageal Reflux Disease Musculoskeltal Medical History: Reports Hx Arthritis Psychiatric Medical History: Reports: Hx Bipolar Disorder Traumatic Medical History: Reports: Hx Pneumothorax - Spontaneous Past Surgical History: Reports: Other - Chest tube for spontaneous pneumothorax - Immunizations Immunizations up to date: Yes Hx Diphtheria, Pertussis, Tetanus Vaccination: Yes Review of Systems - Review of Systems Notes: REVIEW OF SYSTEMS: CONSTITUTIONAL : Admits to chills EENT: Denies eye, ear, throat, or mouth pain or symptoms. Denies nasal or sinus congestion or discharge. Denies throat, tongue, or mouth swelling or difficulty swallowing. CARDIOVASCULAR: Denies chest pain. Denies palpitations or racing or irregular heart beat. Denies ankle edema. RESPIRATORY: Admits to nonproductive cough GASTROINTESTINAL: Admits to heartburn GENITOURINARY: Denies difficulty urinating, painful urination, burning, frequency, blood in urine, or discharge. MUSCULOSKELETAL: Denies back or neck pain or stiffness. Denies joint pain or swelling. SKIN: Denies rash, lesions or sores. HEMATOLOGIC : Denies easy bruising or bleeding. LYMPHATIC: Denies swollen, enlarged glands. NEUROLOGICAL: Admits to generalized weakness PSYCHIATRIC: Denies anxiety or stress. Denies depression, suicidal ideation, or homicidal ideation. ALL OTHER SYSTEMS REVIEWED AND NEGATIVE. Dictation was performed using [employer] voice recognition software PHYSICAL EXAMINATION: GENERAL: Well-appearing, well-nourished and in no acute distress. HEAD: Atraumatic, normocephalic. EYES: Pupils equal round and reactive to light, extraocular movements intact, sclera anicteric, conjunctiva are normal. ENT: Nares patent, oropharynx clear without exudates. Moist mucous membranes. NECK: Normal range of motion, supple without lymphadenopathy LUNGS: Breath sounds clear to auscultation bilaterally and equal. No wheezes rales or rhonchi. HEART: Regular rate and rhythm without murmurs ABDOMEN: Soft, nontender, nondistended abdomen. No guarding, no rebound. No masses appreciated. Musculoskeletal: Normal range of motion, no pitting or edema. No cyanosis. NEUROLOGICAL: Cranial nerves grossly intact. Normal speech, normal gait. Normal sensory, motor exams PSYCH: Normal mood, normal affect. SKIN: Warm, Dry, normal turgor, no rashes or lesions noted. Patient is very vague complaints Physical Exam - Vital signs Vitals: Temp Pulse Resp BP Pulse Ox 98.5 F 110 H 18 144/89 H 99 08/24/17 06:57 08/24/17 06:57 08/24/17 06:57 08/24/17 06:57 08/24/17 06:57 Course - Re-evaluation Re-evalutation: 08/24/17 08:32 Patient's complaints are quite vague, I will evaluate for influenza diabetic issues as well as coronary artery disease 08/24/17 09:11 Patient's blood sugars noted to be 400 IV fluids have been started 08/24/17 15:03 Patient's blood sugar improved significantly down to 256, he feels well is in no distress, patient was not given insulin, he has no other complaint at this time will be discharged home with close follow-up with primary care physician After performing a Medical Screening Examination, I estimate there is LOW risk for ACUTE APPENDICITIS, BOWEL OBSTRUCTION, ACUTE CHOLECYSTITIS, PERFORATED DIVERTICULITIS, INCARCERATED HERNIA, PANCREATITIS, TESTICULAR TORSION or PERFORATED ULCER, thus I consider the discharge disposition reasonable. Also, there is no evidence or peritonitis, sepsis, or toxicity. I have reevaluated this patient multiple times and no significant life threatening changes are noted. The patient and I have discussed the diagnosis and risks, and we agree with discharging home with close follow-up with the understanding that symptoms and presentations can change. We also discussed returning to the Emergency Department immediately if new or worsening symptoms occur. We have discussed the symptoms which are most concerning (e.g., bloody stool, fever, changing or worsening pain, intractable vomiting - standard verbal up date) that necessitate immediate return. - Vital Signs Vital signs: Temp Pulse Resp BP Pulse Ox 98.0 F 92 18 152/87 H 98 08/24/17 11:38 08/24/17 11:38 08/24/17 11:38 08/24/17 11:38 08/24/17 11:38 - Laboratory Result Diagrams: 08/24/17 08:33 08/24/17 09:18 Laboratory results interpreted by me: 08/24/17 08/24/17 08/24/17 07:42 08:33 09:18 RBC 6.15 H MCV 79 L MCH 26.1 L Seg Neutrophils % 83.4 H Lymphocytes % 10.3 L Sodium 136.2 L Glucose 360 H POC Glucose Direct Bilirubin 0.5 H Creatine Kinase 34 L Urine Glucose (UA) >=500 H 08/24/17 10:43 RBC MCV MCH Seg Neutrophils % Lymphocytes % Sodium Glucose POC Glucose 263 H Direct Bilirubin Creatine Kinase Urine Glucose (UA) Critical Care Note - Critical Care Note Total time excluding time spent on procedures (mins): 34 Comments: 34 minutes of critical care time spent in direct contact evaluating and reevaluating the patient, treating symptoms, reviewing labs and studies and speaking with family and consultants excluding any procedures Discharge - Discharge Clinical Impression: Hyperglycemia, Weakness Condition: Stable Disposition: HOME, SELF-CARE Instructions: Hyperglycemia ([facility]) Additional Instructions: Follow up with your physician tomorrow for further care or return to the ED IMMEDIATELY if symptoms worsen or new concerns occur. If you cannot afford to follow up with your primary care physician a list of low cost clinics have been provided at the end of your discharge papers as well. Forms: Return to Work
[2017-08-24 08:38] LABS: A TYPE INFLUENZA AG NEGATIVE (NEGATIVE); B INFLUENZA AG NEGATIVE (NEGATIVE)
--- NOTE | 2017-08-24 08:51 | EKG REPORT ---
SEVERITY:- ABNORMAL ECG - SINUS TACHYCARDIA ABNORMAL T, CONSIDER ISCHEMIA, INFERIOR LEADS : Confirmed by: Sushil Polanco MD 24-Aug-2017 08:51:21
[2017-08-24] MEDS ORDERED: NORMAL SALINE 1000 ML 1,000 ML IV PRN (08:55)
[2017-08-24 08:58] LABS: ABSOLUTE BASOPHILS # (AUTO) 0.1 10^3/uL (0.0-0.2); ABSOLUTE MONOCYTES (AUTO) 0.5 10^3/uL (0.1-1.4); ABSOLUTE NEUT (AUTO) 8.2 10^3/uL (1.7-8.2); BASOPHILS % (AUTO) 0.6 % (0-2); EOSINOPHILS % (AUTO) 0.5 % (0-6); HEMATOCRIT 48.4 % (37.9-51.0); LYMPHOCYTES % (AUTO) 10.3 % (13-45); MEAN CORPUSCULAR HEMOGLOBIN 26.1 pg (27.0-33.4); MEAN CORPUSCULAR HGB CONC 33.2 g/dL (32.0-36.0); MEAN CORPUSCULAR VOLUME 79 fl (80-97); MONOCYTES % (AUTO) 5.2 % (3-13); RED BLOOD COUNT 6.15 10^6/uL (4.35-5.55); RED CELL DISTRIBUTION WIDTH 13.5 % (11.5-14.0); SEGMENTED NEUTROPHILS % (AUTO) 83.4 % (42-78); TOTAL CELLS COUNTED % (AUTO) 100 %; WHITE BLOOD COUNT 9.8 10^3/uL (4.0-10.5)
[2017-08-24] MEDS ORDERED: INSULIN REG, HUMAN 100 UNIT/ML 3 ML VIAL (PYX) IV ONE (09:11)
[2017-08-24 09:23] LABS: PLATELET COUNT 200 10^3/uL (150-450)
[2017-08-24 09:50] LABS: VENOUS BLOOD HCO3 25.4 mmol/L (20-32); VENOUS BLOOD PH 7.38 (7.30-7.42)
[2017-08-24 10:00] LABS: ALANINE AMINOTRANSFERASE 57 U/L (21-72); ALBUMIN 4.4 g/dL (3.5-5.0); ALKALINE PHOSPHATASE 76 U/L (38-126); ANION GAP 12 (5-19); ASPARTATE AMINO TRANSFERASE 18 U/L (17-59); BILIRUBIN,DIRECT 0.5 mg/dL (0.0-0.4); BILIRUBIN,TOTAL 0.6 mg/dL (0.2-1.3); BLOOD UREA NITROGEN 16 mg/dL (7-20); CALCIUM 10.1 mg/dL (8.4-10.2); CARBON DIOXIDE 24 mmol/L (22-30); CHLORIDE 100 mmol/L (98-107); CREATINE KINASE 34 U/L (55-170); GLUCOSE 360 mg/dL (75-110); POTASSIUM 4.3 mmol/L (3.6-5.0); SODIUM 136.2 mmol/L (137-145); TOTAL PROTEIN 7.4 g/dL (6.3-8.2)
[2017-08-24 10:14] LABS: CREATINE KINASE MB 0.25 ng/mL (<4.55)
[2017-08-24 10:15] LABS: TROPONIN I < 0.012 ng/mL
[2017-08-24 11:13] LABS: APPEARANCE,URINE CLEAR; BILIRUBIN,URINE NEGATIVE (NEGATIVE); COLOR,URINE STRAW; GLUCOSE, URINE >=500 mg/dL (NEGATIVE); KETONES,URINE NEGATIVE (NEGATIVE); LEUKOCYTE ESTERASE,URINE NEGATIVE (NEGATIVE); NITRITE,URINE NEGATIVE (NEGATIVE); PROTEIN,URINE NEGATIVE (NEGATIVE); UROBILINOGEN,URINE NEGATIVE mg/dL (<2.0)
[2017-08-24 11:39] VITALS: BP 152/87
== END 2017-08-24 11:36 | disposition home or self-care (01) ==
LOC: ER 06:56
DX: E11.65 Type 2 diabetes mellitus with hyperglycemia (principal); R53.1 Weakness; M54.9 Dorsalgia, unspecified; R20.0 Anesthesia of skin; M79.605 Pain in left leg
CPT/HCPCS: 93005; 99291; 96360; 36415; 82553; 82962; 82550; 85025; 80053; 81001; 84484; 82803; 87804; 93010; J7030

== ENCOUNTER 2017-08-26 06:37 | Emergency (ER) | payer MEDICAID ==
--- NOTE | 2017-08-26 07:24 | ER Document Report ---
ED Dizziness/Weakness - General Chief Complaint: Dizziness Stated Complaint: DIZZINESS Time Seen by Provider: 08/26/17 07:23 TRAVEL OUTSIDE OF THE [place] IN LAST 30 DAYS: No - HPI Patient complains to provider of: Dizziness - Dizzy, nausea, vomiting, elevated blood sugar. Notes: 46-year-old male with history of diabetes presents with nausea vomiting and dizziness. Patient thinks his sugars are up. Patient periodically has episodes of elevated blood sugar. Most recently 2 days ago. Patient has never been in DKA. - Related Data Allergies/Adverse Reactions: Penicillins Allergy (Verified 07/24/17 08:21) Past Medical History - Social History Smoking Status: Unknown if Ever Smoked Family History: Arthritis, Hyperlipidemia, Hypertension, Malignancy - Past Medical History Cardiac Medical History: Reports: Hx Hypertension Endocrine Medical History: Reports: Hx Diabetes Mellitus Type 2 Renal/ Medical History: Denies: Hx Peritoneal Dialysis GI Medical History: Reports: Hx Gastroesophageal Reflux Disease Musculoskeltal Medical History: Reports Hx Arthritis Psychiatric Medical History: Reports: Hx Bipolar Disorder Traumatic Medical History: Reports: Hx Pneumothorax - Spontaneous Past Surgical History: Reports: Other - Chest tube for spontaneous pneumothorax - Immunizations Immunizations up to date: Yes Hx Diphtheria, Pertussis, Tetanus Vaccination: Yes Review of Systems - Review of Systems Constitutional: No symptoms reported EENT: No symptoms reported Cardiovascular: No symptoms reported Respiratory: No symptoms reported Gastrointestinal: Nausea, Vomiting Genitourinary: No symptoms reported Male Genitourinary: No symptoms reported Musculoskeletal: No symptoms reported Skin: No symptoms reported Hematologic/Lymphatic: No symptoms reported Neurological/Psychological: No symptoms reported Physical Exam - Vital signs Vitals: Temp Pulse Resp BP Pulse Ox 98.4 F 92 17 148/88 H 95 08/26/17 06:46 08/26/17 06:46 08/26/17 06:46 08/26/17 06:46 08/26/17 06:46 Interpretation: Normal - General General appearance: Appears well, Alert - HEENT Head: Normocephalic, Atraumatic Eyes: Normal Pupils: PERRL - Respiratory Respiratory status: No respiratory distress Chest status: Nontender Breath sounds: Normal Chest palpation: Normal - Cardiovascular Rhythm: Regular Heart sounds: Normal auscultation Murmur: No - Abdominal Inspection: Normal Distension: No distension Bowel sounds: Normal Tenderness: Nontender Organomegaly: No organomegaly - Back Back: Normal, Nontender - Extremities General upper extremity: Normal inspection, Nontender, Normal color, Normal ROM , Normal temperature General lower extremity: Normal inspection, Nontender, Normal color, Normal ROM , Normal temperature, Normal weight bearing. No: Bridget's sign - Neurological Neuro grossly intact: Yes Cognition: Normal Orientation: AAOx4 [place] Coma Scale Eye Opening: Spontaneous [place] Coma Scale Verbal: Oriented [place] Coma Scale Motor: Obeys Commands [place] Coma Scale Total: 15 Speech: Normal Motor strength normal: LUE, RUE, LLE, RLE Sensory: Normal - Psychological Associated symptoms: Normal affect, Normal mood - Skin Skin Temperature: Warm Skin Moisture: Dry Skin Color: Normal Course - Re-evaluation Re-evalutation: 08/26/17 08:37 Well-appearing man in no acute distress stable vital signs within normal limits. Given a liter of normal saline, IV Zofran. Patient feeling much improved. Extensive lab workup relatively unremarkable. Patient's glucose not that elevated. He is spilling glucose in his urine but no ketones. Will be discharged home with prescription for oral Zofran. - Vital Signs Vital signs: Temp Pulse Resp BP Pulse Ox 98.4 F 92 17 148/88 H 95 08/26/17 06:46 08/26/17 06:46 08/26/17 06:46 08/26/17 06:46 08/26/17 06:46 - Laboratory Result Diagrams: 08/26/17 07:50 08/26/17 07:50 Laboratory results interpreted by me: 08/26/17 08/26/17 08/26/17 07:50 07:50 07:50 RBC 5.88 H MCV 78 L MCH 26.5 L Glucose 277 H POC Glucose Urine Glucose (UA) >=500 H Urine Ascorbic Acid 40 H 08/26/17 08:06 RBC MCV MCH Glucose POC Glucose 259 H Urine Glucose (UA) Urine Ascorbic Acid Discharge - Discharge Clinical Impression: Hyperglycemia Condition: Stable Disposition: HOME, SELF-CARE Instructions: Antinausea Medication ([facility]) Additional Instructions: See her PCP.
[2017-08-26] MEDS ORDERED: ONDANSETRON HCL INJ/PF 4 MG/2 ML SDV IV ONE (07:38)
[2017-08-26] MEDS ORDERED: NORMAL SALINE 1000 ML 1,000 ML IV ONE (07:38)
[2017-08-26 08:02] LABS: ABSOLUTE EOSINOPHILS # (AUTO) 0.1 10^3/uL (0.0-0.6); ABSOLUTE LYMPHOCYTES (AUTO) 1.7 10^3/uL (0.5-4.7); ABSOLUTE MONOCYTES (AUTO) 0.5 10^3/uL (0.1-1.4); ABSOLUTE NEUT (AUTO) 3.4 10^3/uL (1.7-8.2); BASOPHILS % (AUTO) 0.5 % (0-2); EOSINOPHILS % (AUTO) 1.5 % (0-6); HEMATOCRIT 45.6 % (37.9-51.0); HEMOGLOBIN 15.6 g/dL (13.5-17.0); LYMPHOCYTES % (AUTO) 29.6 % (13-45); MEAN CORPUSCULAR HEMOGLOBIN 26.5 pg (27.0-33.4); MEAN CORPUSCULAR HGB CONC 34.1 g/dL (32.0-36.0); MEAN CORPUSCULAR VOLUME 78 fl (80-97); MONOCYTES % (AUTO) 8.6 % (3-13); PLATELET COUNT 182 10^3/uL (150-450); RED BLOOD COUNT 5.88 10^6/uL (4.35-5.55); RED CELL DISTRIBUTION WIDTH 13.2 % (11.5-14.0); SEGMENTED NEUTROPHILS % (AUTO) 59.8 % (42-78); TOTAL CELLS COUNTED % (AUTO) 100 %; WHITE BLOOD COUNT 5.7 10^3/uL (4.0-10.5)
[2017-08-26 08:21] LABS: APPEARANCE,URINE CLEAR; BILIRUBIN,URINE NEGATIVE (NEGATIVE); COLOR,URINE YELLOW; GLUCOSE, URINE >=500 mg/dL (NEGATIVE); KETONES,URINE NEGATIVE (NEGATIVE); LEUKOCYTE ESTERASE,URINE NEGATIVE (NEGATIVE); NITRITE,URINE NEGATIVE (NEGATIVE); PROTEIN,URINE NEGATIVE (NEGATIVE); URINE SPECIFIC GRAVITY 1.033; UROBILINOGEN,URINE NEGATIVE mg/dL (<2.0)
[2017-08-26 08:27] LABS: ALANINE AMINOTRANSFERASE 56 U/L (21-72); ALBUMIN 4.4 g/dL (3.5-5.0); ALKALINE PHOSPHATASE 78 U/L (38-126); ANION GAP 10 (5-19); ASPARTATE AMINO TRANSFERASE 31 U/L (17-59); BILIRUBIN,DIRECT 0.4 mg/dL (0.0-0.4); BILIRUBIN,TOTAL 0.5 mg/dL (0.2-1.3); BLOOD UREA NITROGEN 14 mg/dL (7-20); CALCIUM 10.1 mg/dL (8.4-10.2); CARBON DIOXIDE 28 mmol/L (22-30); CHLORIDE 100 mmol/L (98-107); GLUCOSE 277 mg/dL (75-110); POTASSIUM 4.6 mmol/L (3.6-5.0); SODIUM 138.1 mmol/L (137-145); TOTAL PROTEIN 7.5 g/dL (6.3-8.2)
[2017-08-26 08:55] VITALS: BP 154/88
== END 2017-08-26 08:55 | disposition home or self-care (01) ==
LOC: ER 06:37
DX: E11.65 Type 2 diabetes mellitus with hyperglycemia (principal); R42 Dizziness and giddiness; R11.2 Nausea with vomiting, unspecified; Z88.0 Allergy status to penicillin
CPT/HCPCS: 99284; 96361; 96374; 36415; 82962; 85025; 80076; 80048; 81001; J2405; J7030

== ENCOUNTER 2017-10-14 14:37 | Emergency (ER) | payer MEDICAID ==
[2017-10-14] MEDS ORDERED: ONDANSETRON 4 MG TAB.RAPDIS PO ONE (15:34)
[2017-10-14 16:50] LABS: ABSOLUTE LYMPHOCYTES (AUTO) 0.9 10^3/uL (0.5-4.7); ABSOLUTE MONOCYTES (AUTO) 0.5 10^3/uL (0.1-1.4); ABSOLUTE NEUT (AUTO) 11.8 10^3/uL (1.7-8.2); BASOPHILS % (AUTO) 0.2 % (0-2); EOSINOPHILS % (AUTO) 0.3 % (0-6); HEMATOCRIT 49.8 % (37.9-51.0); HEMOGLOBIN 16.5 g/dL (13.5-17.0); LYMPHOCYTES % (AUTO) 6.6 % (13-45); MEAN CORPUSCULAR HEMOGLOBIN 25.8 pg (27.0-33.4); MEAN CORPUSCULAR VOLUME 78 fl (80-97); PLATELET COUNT 236 10^3/uL (150-450); RED BLOOD COUNT 6.37 10^6/uL (4.35-5.55); RED CELL DISTRIBUTION WIDTH 13.6 % (11.5-14.0); SEGMENTED NEUTROPHILS % (AUTO) 88.9 % (42-78); TOTAL CELLS COUNTED % (AUTO) 100 %; WHITE BLOOD COUNT 13.3 10^3/uL (4.0-10.5)
[2017-10-14 16:55] LABS: APPEARANCE,URINE CLEAR; BILIRUBIN,URINE NEGATIVE (NEGATIVE); COLOR,URINE YELLOW; GLUCOSE, URINE >=500 mg/dL (NEGATIVE); KETONES,URINE TRACE mg/dL (NEGATIVE); LEUKOCYTE ESTERASE,URINE NEGATIVE (NEGATIVE); NITRITE,URINE NEGATIVE (NEGATIVE); PROTEIN,URINE NEGATIVE (NEGATIVE); URINE SPECIFIC GRAVITY 1.031; UROBILINOGEN,URINE NEGATIVE mg/dL (<2.0)
[2017-10-14 17:07] LABS: ALANINE AMINOTRANSFERASE 66 U/L (21-72); ALBUMIN 5.4 g/dL (3.5-5.0); ALKALINE PHOSPHATASE 80 U/L (38-126); ANION GAP 15 (5-19); ASPARTATE AMINO TRANSFERASE 28 U/L (17-59); BILIRUBIN,DIRECT 0.2 mg/dL (0.0-0.4); BILIRUBIN,TOTAL 0.7 mg/dL (0.2-1.3); BLOOD UREA NITROGEN 21 mg/dL (7-20); CALCIUM 10.6 mg/dL (8.4-10.2); CARBON DIOXIDE 29 mmol/L (22-30); CHLORIDE 98 mmol/L (98-107); GLUCOSE 242 mg/dL (75-110); SODIUM 142.1 mmol/L (137-145); TOTAL PROTEIN 8.9 g/dL (6.3-8.2)
--- NOTE | 2017-10-14 17:39 | ER Document Report ---
ED General - General Chief Complaint: Vomiting Stated Complaint: VOMITING Time Seen by Provider: 10/14/17 15:34 Mode of Arrival: Ambulatory Information source: Patient Notes: Patient states that he was having a normal day until he stopped and got some lunch and a fast food restaurant. He states about an hour later he started to have severe nausea and vomiting. He has some mild abdominal cramping. He states is mainly nausea. Nothing makes it better or worse. It is moderate in intensity. It is constant. It does not radiate. He denies any significant problems with urination. No fevers or rashes. TRAVEL OUTSIDE OF THE [place] IN LAST 30 DAYS: No - Related Data Allergies/Adverse Reactions: Penicillins Allergy (Verified 10/14/17 14:38) Past Medical History - General Information source: Patient - Social History Smoking Status: Former Smoker Chew tobacco use (# tins/day): No Frequency of alcohol use: None Drug Abuse: None Family History: Arthritis, Hyperlipidemia, Hypertension, Malignancy Patient has suicidal ideation: No Patient has homicidal ideation: No - Past Medical History Cardiac Medical History: Reports: Hx Hypertension Endocrine Medical History: Reports: Hx Diabetes Mellitus Type 2 Renal/ Medical History: Denies: Hx Peritoneal Dialysis GI Medical History: Reports: Hx Gastroesophageal Reflux Disease Musculoskeltal Medical History: Reports Hx Arthritis Psychiatric Medical History: Reports: Hx Bipolar Disorder Traumatic Medical History: Reports: Hx Pneumothorax - Spontaneous Past Surgical History: Reports: Other - Chest tube for spontaneous pneumothorax - Immunizations Immunizations up to date: Yes Hx Diphtheria, Pertussis, Tetanus Vaccination: Yes Review of Systems - Review of Systems Constitutional: Malaise. denies: Chills Cardiovascular: denies: Chest pain, Palpitations Respiratory: denies: Cough, Short of breath -: Yes All other systems reviewed and negative Physical Exam - Vital signs Vitals: Temp Pulse Resp BP Pulse Ox 98.1 F 115 H 16 119/76 96 10/14/17 14:43 10/14/17 14:43 10/14/17 14:43 10/14/17 14:43 10/14/17 14:43 Interpretation: Tachycardic - General General appearance: Appears well, Alert - HEENT Head: Normocephalic, Atraumatic Eyes: Normal Pupils: PERRL - Respiratory Respiratory status: No respiratory distress Chest status: Nontender Breath sounds: Normal Chest palpation: Normal - Cardiovascular Rhythm: Regular Heart sounds: Normal auscultation Murmur: No - Abdominal Inspection: Normal Distension: No distension Bowel sounds: Normal Tenderness: Nontender Organomegaly: No organomegaly - Back Back: Normal, Nontender - Extremities General upper extremity: Normal inspection, Nontender, Normal color, Normal ROM , Normal temperature General lower extremity: Normal inspection, Nontender, Normal color, Normal ROM , Normal temperature, Normal weight bearing. No: Bridget's sign - Neurological Neuro grossly intact: Yes Cognition: Normal Orientation: AAOx4 [place] Coma Scale Eye Opening: Spontaneous [place] Coma Scale Verbal: Oriented [place] Coma Scale Motor: Obeys Commands [place] Coma Scale Total: 15 Speech: Normal Motor strength normal: LUE, RUE, LLE, RLE Sensory: Normal - Psychological Associated symptoms: Normal affect, Normal mood - Skin Skin Temperature: Warm Skin Moisture: Dry Skin Color: Normal Course - Re-evaluation Re-evalutation: 10/14/17 17:35 pt feels better now after meds, vitals improved. - Vital Signs Vital signs: Temp Pulse Resp BP Pulse Ox 98.1 F 115 H 16 119/76 96 10/14/17 14:43 10/14/17 14:43 10/14/17 15:26 10/14/17 14:43 10/14/17 14:43 - Laboratory Result Diagrams: 10/14/17 16:26 10/14/17 16:26 Laboratory results interpreted by me: 10/14/17 10/14/17 10/14/17 16:26 16:26 16:26 WBC 13.3 H RBC 6.37 H MCV 78 L MCH 25.8 L Seg Neutrophils % 88.9 H Lymphocytes % 6.6 L Absolute Neutrophils 11.8 H BUN 21 H Glucose 242 H Calcium 10.6 H Total Protein 8.9 H Albumin 5.4 H Urine Glucose (UA) >=500 H Urine Ketones TRACE H Discharge - Discharge Clinical Impression: Vomiting Qualifiers: Vomiting type: unspecified Vomiting Intractability: intractable Nausea presence : with nausea Qualified Code(s): R11.2 - Nausea with vomiting, unspecified Condition: Stable Disposition: HOME, SELF-CARE Instructions: Antinausea Medication ([facility]), Vomiting ([facility]) Additional Instructions: Please call your primary doctor as soon as possible to arrange follow up Prescriptions: Ondansetron [Zofran Odt 4 mg Tablet] 1 - 2 tab PO Q4H PRN #15 tab.rapdis PRN Reason: For Nausea/Vomiting Forms: Return to Work
[2017-10-14 17:59] VITALS: BP 116/79
== END 2017-10-14 18:01 | disposition home or self-care (01) ==
LOC: ER 14:37
DX: R11.2 Nausea with vomiting, unspecified (principal); R10.9 Unspecified abdominal pain; Z87.891 Personal history of nicotine dependence; I10 Essential (primary) hypertension; E11.9 Type 2 diabetes mellitus without complications
CPT/HCPCS: 99284; 36415; 85025; 80053; 81001; S0119

== ENCOUNTER 2017-10-27 11:21 | Emergency (ER) | payer MEDICAID ==
--- NOTE | 2017-10-27 12:02 | ER Document Report ---
HPI - HPI Patient complains to provider of: Injured left wrist in fall Onset: This morning - 715 Onset/Duration: Sudden Pain Level: 4 Context: 46-year-old male states that he used his left hand to break a fall off a ladder when he was working this morning at 715. He states that the ulnar side of his wrist was sticking out so he pushed back in. Associated Symptoms: None Exacerbated by: Denies Relieved by: Denies - ROS ROS below otherwise negative: Yes Systems Reviewed and Negative: Yes All other systems reviewed and negative Past Medical History - General Information source: Patient - Social History Smoking Status: Unknown if Ever Smoked Frequency of alcohol use: None Drug Abuse: None Lives with: Family Family History: Arthritis, Hyperlipidemia, Hypertension, Malignancy - Past Medical History Cardiac Medical History: Reports: Hx Hypertension Endocrine Medical History: Reports: Hx Diabetes Mellitus Type 2 Renal/ Medical History: Denies: Hx Peritoneal Dialysis GI Medical History: Reports: Hx Gastroesophageal Reflux Disease Musculoskeltal Medical History: Reports Hx Arthritis Psychiatric Medical History: Reports: Hx Bipolar Disorder Traumatic Medical History: Reports: Hx Pneumothorax - Spontaneous Past Surgical History: Reports: Other - Chest tube for spontaneous pneumothorax - Immunizations Immunizations up to date: Yes Hx Diphtheria, Pertussis, Tetanus Vaccination: Yes Vertical Provider Document - CONSTITUTIONAL Agree With Documented VS: Yes Exam Limitations: No Limitations - INFECTION CONTROL TRAVEL OUTSIDE OF THE [place] IN LAST 30 DAYS: No - NECK Neck: Supple - MUSCULOSKELETAL/EXTREMETIES Musculoskeletal/Extremeties: MAEW, FROM, Tender - distal ulna, mild swelling, n/ v intact, Edema - NEURO Level of Consciousness: Awake, Alert Motor/Sensory: No Motor Deficit, No Sensory Deficit - DERM Integumentary: Warm, Dry, No Rash Course - Re-evaluation Re-evalutation: 10/27/17 12:57 X-rays negative per radiologist but because of what the patient states in his history I will be sending to orthopedics for follow-up. - Vital Signs Vital signs: Temp Pulse Resp BP Pulse Ox 98.4 F 88 16 123/83 96 10/27/17 11:29 10/27/17 11:29 10/27/17 11:29 10/27/17 11:29 10/27/17 11:29 Procedures - Immobilization Left Wrist Time completed: 13:23 Pre-Proc Neuro Vasc Exam: Normal Immobilizer type: Volar splint Performed by: PCT Post-Proc Neuro Vasc Exam: Normal Alignment checked and good: Yes Discharge - Discharge Clinical Impression: Left wrist injury Qualifiers: Encounter type: initial encounter Qualified Code(s): S69.92XA - Unspecified injury of left wrist, hand and finger(s), initial encounter Condition: Good Disposition: HOME, SELF-CARE Instructions: Splint Precautions ([facility]), Wrist Sprain ([facility]), Temporary Splint ( [facility]) Additional Instructions: splint see orthopedics for follow up, referral included Tylenol Motrin Elevate to reduce swelling Forms: Return to Work Referrals: AC PALOMINO MD [ACTIVE STAFF] - Follow up in 3-5 days
--- NOTE | 2017-10-27 12:41 | RADIOLOGY REPORT (SQ) ---
EXAM DESCRIPTION: WRIST LEFT 3 VIEWS COMPLETED DATE/TIME: 10/27/2017 12:26 pm REASON FOR STUDY: fall, injury COMPARISON: None. NUMBER OF VIEWS: Three views. TECHNIQUE: AP, lateral, and oblique radiographic images acquired of the left wrist. LIMITATIONS: None. FINDINGS: MINERALIZATION: Normal. BONES: No acute fracture or dislocation. No worrisome bone lesions. Normal alignment. SOFT TISSUES: No soft tissue swelling. No foreign body. OTHER: No other significant finding. IMPRESSION: NEGATIVE STUDY OF THE LEFT WRIST. NO RADIOGRAPHIC EVIDENCE OF ACUTE INJURY. TECHNICAL DOCUMENTATION: JOB ID: [id number] [employer]- All Rights Reserved Reading location - IP/workstation name: [email or web address]
[2017-10-27 13:36] VITALS: BP 134/92
== END 2017-10-27 13:36 | disposition home or self-care (01) ==
LOC: ER 11:21
DX: S69.92XA Unspecified injury of left wrist, hand and finger(s), initial encounter (principal); W11.XXXA Fall on and from ladder, initial encounter; Y99.0 Civilian activity done for income or pay; I10 Essential (primary) hypertension; E11.9 Type 2 diabetes mellitus without complications
CPT/HCPCS: 99283

== ENCOUNTER 2017-11-02 10:27 | Emergency (ER) | payer MEDICAID ==
[2017-11-02 10:35] VITALS: BP 137/91
[2017-11-02] MEDS ORDERED: PREDNISONE 20 MG TABLET PO ONE (10:44)
[2017-11-02] MEDS ORDERED: FAMOTIDINE 20 MG TABLET PO ONE (10:44)
--- NOTE | 2017-11-02 10:52 | ER Document Report ---
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 He reports spraying a wasp nest and seeing all the wasps fall to the ground. Later he noted a burning, itching sensation to his right lateral neck and left volar forearm and thought it was an allergic reaction to a possible sting. No respiratory symptoms, no difficulty swallowing. TRAVEL OUTSIDE OF THE [place] 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 Lives with: Spouse/Significant other Family History: Arthritis, Hyperlipidemia, Hypertension, Malignancy Patient has suicidal ideation: No Patient has homicidal ideation: No - Past Medical History Cardiac Medical History: Reports: Hx Hypertension Endocrine Medical History: Reports: Hx Diabetes Mellitus Type 2 GI Medical History: Reports: Hx Gastroesophageal Reflux Disease Musculoskeltal Medical History: Reports Hx Arthritis Psychiatric Medical History: Reports: Hx Bipolar Disorder Traumatic Medical History: Reports: Hx Pneumothorax - Spontaneous Past Surgical History: Reports: Other - Chest tube for spontaneous pneumothorax - Immunizations Immunizations up to date: Yes Hx Diphtheria, Pertussis, Tetanus Vaccination: Yes Review of Systems - Review of Systems Constitutional: No symptoms reported EENT: No symptoms reported Cardiovascular: No symptoms reported Respiratory: No symptoms reported Gastrointestinal: No symptoms reported Genitourinary: No symptoms reported Musculoskeletal: No symptoms reported Skin: See HPI Hematologic/Lymphatic: No symptoms reported Neurological/Psychological: No symptoms reported Physical Exam - Vital signs Vitals: Temp Pulse Resp BP Pulse Ox 97.6 F 104 H 18 137/91 H 97 11/02/17 10:33 11/02/17 10:33 11/02/17 10:33 11/02/17 10:33 11/02/17 10:33 Interpretation: Normal - General General appearance: Appears well, Alert In distress: None - HEENT Head: Normocephalic, Atraumatic Eyes: Normal Pupils: PERRL Neck: Other - The right neck has erythematous rash with skin thickening and blister starting to develop. - Respiratory Respiratory status: No respiratory distress - Cardiovascular Rhythm: Regular - Abdominal Inspection: Normal - Back Back: Normal - Extremities General upper extremity: Other - The left volar forearm has a diffuse, erythematous, raised rash with some blistering developing which is consistent with poison kristyn. General lower extremity: Other - Multiple recent minor skin contusion scratches and other injuries to both legs. There is no rash noted. - Neurological Neuro grossly intact: Yes - Psychological Associated symptoms: Normal affect, Normal mood - Skin Skin Temperature: Warm Skin Moisture: Dry Skin Color: Normal Course - Vital Signs Vital signs: Temp Pulse Resp BP Pulse Ox 97.6 F 104 H 18 137/91 H 97 11/02/17 10:33 11/02/17 10:33 11/02/17 10:33 11/02/17 10:33 11/02/17 10:33 Discharge - Discharge Clinical Impression: Rhus dermatitis Condition: Stable Disposition: HOME, SELF-CARE Additional Instructions: Poison Kristyn(Rhus dermatitis): Poison kristyn and poison oak can cause an itchy rash. This is called contact dermatitis. It's an allergy to an oil in the plant's leaves. The oil can be spread from clothing to skin, from pets to humans, or from one spot on the body to another. Washing thoroughly with soap immediately after exposure can prevent the rash. (Clothing should be washed as well.) If the oil is not removed, an itchy rash develops a few days after the exposure. Blisters may develop. Two to three weeks may be required for healing. Generally, treatment consists of: (1) an immediate thorough washing with soap to remove the oil, (2) application of a cortisone cream, and (3) antihistamines for itching. If the reaction is particularly severe, oral cortisone medicine may be required. If there are oozing areas, these can be soaked in epsom salts or Neal's solution. Call the doctor if the rash worsens despite treatment, or if signs of infection occur such as spreading redness, red streaks, swollen glands, swelling , or fever. The rash on your right lateral neck and left volar forearm is a classic poison kristyn type rash with skin redness, skin thickening, and blister development. Start the prednisone as prescribed tomorrow. Take Benadryl for itching if needed. Go home and wash your entire body with soap and water. Wash any clothing she wore yesterday or today. The prednisone will make your blood sugars go up. Be sure you drink plenty of water to make up for the increased urination. Return to the emergency room if you develop any problems with nausea, vomiting, or uncontrolled thirst. Follow-up with your doctor Saturday if the rash does not seem to be improving. RETURN TO THE EMERGENCY ROOM IF ANY NEW OR WORSENING SYMPTOMS. Prescriptions: Prednisone [Deltasone 10 mg Tablet] 10 mg PO ASDIR PRN #21 tablet PRN Reason:
== END 2017-11-02 10:56 | disposition home or self-care (01) ==
LOC: ER 10:27
DX: L23.7 Allergic contact dermatitis due to plants, except food (principal); I10 Essential (primary) hypertension; E11.9 Type 2 diabetes mellitus without complications; Z88.0 Allergy status to penicillin
CPT/HCPCS: 99282; J3490; J7512

== ENCOUNTER 2017-12-05 12:42 | Emergency (ER) | payer MEDICAID ==
[2017-12-05] MEDS ORDERED: NORMAL SALINE 1000 ML 1,000 ML IV ONE (14:32)
--- NOTE | 2017-12-05 14:32 | ER Document Report ---
ED Medical Screen (RME) - General Chief Complaint: High Blood Sugar Stated Complaint: FACIAL RASH Time Seen by Provider: 12/05/17 14:26 Mode of Arrival: Ambulatory Information source: Patient TRAVEL OUTSIDE OF THE [place] IN LAST 30 DAYS: No - HPI Notes: 12/05/17 14:32 46-year-old male with a past medical history of hyperglycemia presents to the emergency room for complaints of polyuria and hyperglycemia after he has been out of his metformin and glipizide for the last 4 days because he is unable to get into his primary care office for another 2 weeks, Dr. Kasper at [facility]. Patient states he checked his blood sugar this morning and it was 430. patient reports he has a rash on the left side of his face, itchy for the last 4 days. Denies new detergents, medications, travel, lotions. Does intermittently work outside. To take a Benadryl with relief last night. Patient denies any pain. Denies fevers, chills, chest pain,palpitations, shortness of breath, dyspnea, nausea, vomiting, diarrhea, abdominal pain, hematuria,blurred vision, double vision, loss of vision, speech changes, LH, dizziness, syncope, headaches, wheezing, ST, URI, neck pain, weakness, bowel or bladder dysfunction, saddle anesthesia, numbness or tingling in bilateral upper or lower extremities equally , muscle paralysis, weakness in bilateral upper or lower extremities equally. Denies IV drug use. I have greeted and performed a rapid initial assessment of this patient. A comprehensive ED assessment and evaluation of the patient, analysis of test results and completion of medical decision making process will be conducted by an additional ED providers. 12/05/17 14:37 - Related Data Allergies/Adverse Reactions: Penicillins Allergy (Verified 12/05/17 12:43) Past Medical History - Social History Chew tobacco use (# tins/day): No Frequency of alcohol use: None Drug Abuse: None - Past Medical History Cardiac Medical History: Reports: Hx Hypertension Endocrine Medical History: Reports: Hx Diabetes Mellitus Type 2 Renal/ Medical History: Denies: Hx Peritoneal Dialysis GI Medical History: Reports: Hx Gastroesophageal Reflux Disease Musculoskeltal Medical History: Reports Hx Arthritis Psychiatric Medical History: Reports: Hx Bipolar Disorder Traumatic Medical History: Reports: Hx Pneumothorax - Spontaneous Past Surgical History: Reports: Other - Chest tube for spontaneous pneumothorax - Immunizations Immunizations up to date: Yes Hx Diphtheria, Pertussis, Tetanus Vaccination: Yes History of Influenza Vaccine for 04/2017 - 09/2017 Season: No Physical Exam - Vital signs Vitals: Temp Pulse Resp BP Pulse Ox 98.1 F 82 16 130/78 H 96 12/05/17 12:53 12/05/17 12:53 12/05/17 12:53 12/05/17 12:53 12/05/17 12:53 - Respiratory Respiratory status: No respiratory distress Chest status: Nontender Breath sounds: Normal Chest palpation: Normal - Cardiovascular Rhythm: Regular Heart sounds: Normal auscultation - Skin Skin Temperature: Warm Skin Moisture: Dry Skin Color: Normal - Noted erythemic rash right upper cheek with scaly texture. No satellite lesions, linear markings noted. No open wounds or drainage. No induration Course - Vital Signs Vital signs: Temp Pulse Resp BP Pulse Ox 98.1 F 82 16 130/78 H 96 12/05/17 12:53 12/05/17 12:53 12/05/17 12:53 12/05/17 12:53 12/05/17 12:53
[2017-12-05 15:13] LABS: ABSOLUTE EOSINOPHILS # (AUTO) 0.2 10^3/uL (0.0-0.6); ABSOLUTE LYMPHOCYTES (AUTO) 2.6 10^3/uL (0.5-4.7); ABSOLUTE MONOCYTES (AUTO) 0.5 10^3/uL (0.1-1.4); ABSOLUTE NEUT (AUTO) 4.5 10^3/uL (1.7-8.2); BASOPHILS % (AUTO) 0.6 % (0-2); EOSINOPHILS % (AUTO) 2.5 % (0-6); HEMOGLOBIN 14.8 g/dL (13.5-17.0); LYMPHOCYTES % (AUTO) 33.9 % (13-45); MEAN CORPUSCULAR HEMOGLOBIN 26.3 pg (27.0-33.4); MEAN CORPUSCULAR HGB CONC 32.8 g/dL (32.0-36.0); MEAN CORPUSCULAR VOLUME 80 fl (80-97); PLATELET COUNT 223 10^3/uL (150-450); RED BLOOD COUNT 5.62 10^6/uL (4.35-5.55); RED CELL DISTRIBUTION WIDTH 13.4 % (11.5-14.0); TOTAL CELLS COUNTED % (AUTO) 100 %; WHITE BLOOD COUNT 7.8 10^3/uL (4.0-10.5)
[2017-12-05 15:18] LABS: APPEARANCE,URINE CLEAR; BILIRUBIN,URINE NEGATIVE (NEGATIVE); COLOR,URINE STRAW; GLUCOSE, URINE >=500 mg/dL (NEGATIVE); KETONES,URINE NEGATIVE (NEGATIVE); LEUKOCYTE ESTERASE,URINE NEGATIVE (NEGATIVE); NITRITE,URINE NEGATIVE (NEGATIVE); PROTEIN,URINE NEGATIVE (NEGATIVE); UROBILINOGEN,URINE NEGATIVE mg/dL (<2.0)
[2017-12-05] MEDS ORDERED: GLIPIZIDE 5 MG TABLET PO ONE (15:58)
[2017-12-05] MEDS ORDERED: METFORMIN HCL 500 MG TABLET PO ONE (15:58)
--- NOTE | 2017-12-05 15:58 | ER Document Report ---
ED General - General Chief Complaint: High Blood Sugar Stated Complaint: FACIAL RASH Time Seen by Provider: 12/05/17 14:26 Mode of Arrival: Ambulatory Notes: The patient is a 46-year-old male, past medical history NIDDM, presents with 4 days of polyuria and feeling like his blood sugars are running high. He ran out of his metformin and glipizide for the last 4 days because he cannot see his PMD, Dr. Kasper at [facility], for another 2 weeks. He checked his blood sugar this morning and it was 430. He also has an itchy pruritic rash on the left side of his face for the past 4 days. Denies new detergents, medications, travel, lotions. Does intermittently work outside. He took a Benadryl with relief last night. He denies fevers, chills, chest pain, palpitations, shortness of breath, dyspnea, nausea, vomiting, diarrhea, abdominal pain, hematuria, blurred vision, double vision, loss of vision, speech changes, LH, dizziness, syncope, headaches, wheezing, URI, neck pain, weakness, bowel or bladder dysfunction, saddle anesthesia, numbness or tingling in bilateral upper or lower extremities equally, muscle paralysis, weakness in bilateral upper or lower extremities equally. Denies IV drug use. TRAVEL OUTSIDE OF THE [place] IN LAST 30 DAYS: No - Related Data Allergies/Adverse Reactions: Penicillins Allergy (Verified 12/05/17 12:43) Past Medical History - General Information source: Patient - Social History Smoking Status: Never Smoker Chew tobacco use (# tins/day): No Frequency of alcohol use: None Drug Abuse: None Family History: Arthritis, Hyperlipidemia, Hypertension, Malignancy Patient has suicidal ideation: No Patient has homicidal ideation: No - Past Medical History Cardiac Medical History: Reports: Hx Hypertension Endocrine Medical History: Reports: Hx Diabetes Mellitus Type 2 Renal/ Medical History: Denies: Hx Peritoneal Dialysis GI Medical History: Reports: Hx Gastroesophageal Reflux Disease Musculoskeltal Medical History: Reports Hx Arthritis Psychiatric Medical History: Reports: Hx Bipolar Disorder Traumatic Medical History: Reports: Hx Pneumothorax - Spontaneous Past Surgical History: Reports: Other - Chest tube for spontaneous pneumothorax - Immunizations Immunizations up to date: Yes Hx Diphtheria, Pertussis, Tetanus Vaccination: Yes Review of Systems - Review of Systems Notes: REVIEW OF SYSTEMS: CONSTITUTIONAL: -fevers, -chills EENT: -eye pain, -difficulty swallowing, -nasal congestion CARDIOVASCULAR: -chest pain, -syncope. RESPIRATORY: -cough, -SOB GASTROINTESTINAL: -abdominal pain, -nausea, -vomiting, -diarrhea GENITOURINARY: +polyuria, -dysuria, -hematuria MUSCULOSKELETAL: -back pain, -neck pain SKIN: +facial rash HEMATOLOGIC: -easy bruising or bleeding. LYMPHATIC: -swollen, enlarged glands. NEUROLOGICAL: -altered mental status or loss of consciousness, -headache, - neurologic symptoms PSYCHIATRIC: -anxiety, -depression. ALL OTHER SYSTEMS REVIEWED AND NEGATIVE. Physical Exam - Vital signs Vitals: Temp Pulse Resp BP Pulse Ox 98.1 F 82 16 130/78 H 96 12/05/17 12:53 12/05/17 12:53 12/05/17 12:53 12/05/17 12:53 12/05/17 12:53 - Notes Notes: PHYSICAL EXAMINATION: GENERAL: Well-appearing, well-nourished and in no acute distress. HEAD: Atraumatic, normocephalic. EYES: Pupils equal round and reactive to light, extraocular movements intact, sclera anicteric, conjunctiva are normal. ENT: nares patent, oropharynx clear without exudates. Moist mucous membranes. NECK: Normal range of motion, supple without lymphadenopathy LUNGS: Breath sounds clear to auscultation bilaterally and equal. No wheezes rales or rhonchi. HEART: Regular rate and rhythm without murmurs ABDOMEN: Soft, nontender, normoactive bowel sounds. No guarding, no rebound. No masses appreciated. EXTREMITIES: Normal range of motion, no pitting or edema. No cyanosis. NEUROLOGICAL: Cranial nerves grossly intact. Normal speech, normal gait. Normal sensory and motor exams. PSYCH: Normal mood, normal affect. SKIN: Pruritic urticarial rash over left cheek, nontender and nonfluctuant. Course - Re-evaluation Re-evalutation: Patient with hyperglycemia, but no anion gap and no ketones in his urine. Provide him IV fluids and a refill of his glipizide and metformin until he can see his primary care physician. Instructed him about continuing antihistamines for his pruritic urticarial rash on his cheek. No signs of anaphylaxis at this time and it does not appear to be erysipelas, Delgado-Te's or EM. - Vital Signs Vital signs: Temp Pulse Resp BP Pulse Ox 98.1 F 82 16 130/78 H 96 12/05/17 12:53 12/05/17 12:53 12/05/17 12:53 12/05/17 12:53 12/05/17 12:53 - Laboratory Result Diagrams: 12/05/17 14:45 12/05/17 15:45 Laboratory results interpreted by me: 12/05/17 12/05/17 12/05/17 14:45 14:45 14:45 RBC 5.62 H MCH 26.3 L Glucose POC Glucose 423 H* Urine Glucose (UA) >=500 H 12/05/17 15:45 RBC MCH Glucose 420 H* POC Glucose Urine Glucose (UA) Discharge - Discharge Clinical Impression: Hyperglycemia, Rash of face Condition: Stable Disposition: HOME, SELF-CARE Additional Instructions: HYPERGLYCEMIA (HIGH BLOOD SUGAR): You have an abnormally high blood sugar. Not all high blood sugar requires long-term treatment. High blood sugar can be due to medications, , or the stress of illness. (These cases are "borderline diabetes.") If the doctor feels your high blood sugar might resolve with time, you may not require treatment now. It's very important that you follow through, to see if the blood sugar returns to normal levels. Uncontrolled high blood sugar leads to early heart disease, strokes, nerve damage, eye damage, and kidney damage. Call the physician if there is faintness, excess sleepiness, or very rapid breathing. DIABETES: You have an abnormally high blood sugar, suspicious for diabetes. Not all high blood sugar requires long-term treatment. High blood sugar can be due to medications, , or the stress of illness. (These cases are "borderline diabetes.") If the doctor feels your high blood sugar might get better with time, you may not require treatment now. It's very important that you follow through. Uncontrolled high blood sugar leads to early heart disease, strokes, nerve damage, eye damage, and kidney damage. All diabetics should follow a diet designed to control the blood sugar. Overweight diabetics should exercise regularly and lose weight. If this is not sufficient to control the blood sugar, pills or insulin shots are necessary. Younger people who develop diabetes almost always require insulin daily. Home testing of blood sugars or urine sugar is required. Diabetic teaching is available to help you figure insulin doses and monitor the blood sugar. Call the physician if there is faintness, excess sleepiness, or very rapid breathing. If hypoglycemia (LOW blood sugar) develops, symptoms are shakiness, weakness, sweating, and confusion. In this case, you should eat or drink something with sugar at once. ORAL HYPOGLYCEMIC MEDICATION: Oral hypoglycemics are medicines that lower blood sugar in diabetics. They are not effective for younger diabetics who require insulin. Some brands are tolbutamide, Orinase, glipizide, Glucotrol, glyburide, DiaBeta, Glynase, and Micronase. Some medications can increase or decrease the effect of Diabinese. Examples are Clofibrate (Atromid-S), phenylbutazone (Butazolidin), aspirin, sulfonamides, Coumadin, allopurinol (Zyloprim), probenecid (Benemid), acetazolamide (Diamox), beta blockers, steroids, estrogens, Indocin, INH, Levothyroxine, nicotinic acid, Diflucan, Dilantin, and thiazide diuretics. Be sure your doctor knows all the medicines you take, and talk to your doctor before making any changes in your medicines. If you develop symptoms of shakiness, sweats, and lightheadedness, your blood sugar may have gone too low. Eat or drink a small amount of sweet food. If symptoms don't go away, call your doctor. FOLLOW-UP CARE: If you have been referred to a physician for follow-up care, call the physician s office for an appointment as you were instructed or within the next two days. If you experience worsening or a significant change in your symptoms, notify the physician immediately or return to the Emergency Department at any time for re-evaluation. ACUTE ALLERGIC REACTION: Your symptoms are due to an allergic reaction. Allergy can cause hives, swelling of the hands, feet, and face, hoarseness, and difficulty swallowing or breathing. It may be due to exposure to medication, animal dander, foods, infection, or insect bites. Medication is a common cause, even when prior use of this same medication caused no problems. Acute treatment may include adrenalin and antihistamines. Usually, the specific allergic agent can't be identified unless repeated episodes occur. Home treatment includes the following: (1) Stop any suspicious medications. This will be discussed with you. (2) Oral antihistamines for the next four to five days. Example, diphenhydramine (Benadryl) every four hours. (3) You may also use cimetidine (Tagamet), ranitidine (Zantac), or famotidine ( Pepcid) every four hours if diphenhydramine is not controlling itching and hives. (4) Avoid aspirin until the hives completely disappear. (5) Avoid hot baths or showers until the hives are completely gone. Call the doctor if faintness, difficulty swallowing, tightness in the chest , or wheezing occurs. ANTIHISTAMINES: An antihistamine has been given and/or prescribed to control your symptoms. Antihistamines are used for many reasons, including itching, watering eyes, runny nose, allergic swelling, hives, and insect stings. Antihistamines may cause drowsiness, especially with the first dose. Do not operate machinery or drive while under the effects of the medication. Other common side effects include dry mouth and eyes. In older persons, antihistamines can occasionally cause urinary retention, constipation, and trouble focusing the eyes. Do not combine the medication with alcohol, or with any other medication without talking to your doctor. USE OF DIPHENHYDRAMINE: The use of diphenhydramine (Benadryl) has been recommended to control allergic symptoms. The 25 mg strength is available over- the-counter, as well as the elixir. This antihistamine is used for many symptoms. It's useful for itching, watering eyes and nose, allergic swelling, hives, and insect stings. The medication can be repeated four times daily. Age Elixir (12.5 mg/tsp) 25 mg pill 2-3 yr 1/2 tsp 4-8 yr 1 tsp 9-14 yr 2 tsp one tab adult 1-2 tabs Antihistamines may cause drowsiness, especially with the first dose. Do not operate machinery or drive while under the effects of the medication. Do not combine the medication with alcohol, or with any other medication without talking to your doctor. FOLLOW-UP CARE: If you have been referred to a physician for follow-up care, call the physician s office for an appointment as you were instructed or within the next two days. If you experience worsening or a significant change in your symptoms, notify the physician immediately or return to the Emergency Department at any time for re-evaluation. Prescriptions: Glipizide 5 mg PO DAILY #30 tablet Metformin HCl 500 mg PO BID #60 tablet Forms: Elevated Blood Pressure Referrals: MIRELLA JACQUES MD [ACTIVE STAFF] - Follow up as needed
[2017-12-05 16:23] LABS: ALANINE AMINOTRANSFERASE 56 U/L (21-72); ALKALINE PHOSPHATASE 70 U/L (38-126); ANION GAP 10 (5-19); ASPARTATE AMINO TRANSFERASE 25 U/L (17-59); BILIRUBIN,DIRECT 0.2 mg/dL (0.0-0.4); BILIRUBIN,TOTAL 0.2 mg/dL (0.2-1.3); BLOOD UREA NITROGEN 17 mg/dL (7-20); CALCIUM 9.1 mg/dL (8.4-10.2); CARBON DIOXIDE 28 mmol/L (22-30); CHLORIDE 102 mmol/L (98-107); POTASSIUM 4.7 mmol/L (3.6-5.0); TOTAL PROTEIN 6.8 g/dL (6.3-8.2)
[2017-12-05 16:32] LABS: GLUCOSE 420 mg/dL (75-110)
[2017-12-05 16:53] VITALS: BP 135/88
== END 2017-12-05 16:54 | disposition home or self-care (01) ==
LOC: ER 12:42
DX: E11.65 Type 2 diabetes mellitus with hyperglycemia (principal); T38.3X6A Underdosing of insulin and oral hypoglycemic [antidiabetic] drugs, initial encounter; Z91.128 Patient's intentional underdosing of medication regimen for other reason; Z91.14 Patient's other noncompliance with medication regimen; L50.9 Urticaria, unspecified; I10 Essential (primary) hypertension; Z88.0 Allergy status to penicillin
CPT/HCPCS: 99285; 96360; 36415; 82962; 85025; 80053; 81001; J3490 ×2; J7030

== ENCOUNTER 2017-12-29 19:10 | Emergency (ER) | payer MEDICAID ==
[2017-12-29 20:30] LABS: ABSOLUTE BASOPHILS # (AUTO) 0.1 10^3/uL (0.0-0.2); ABSOLUTE EOSINOPHILS # (AUTO) 0.1 10^3/uL (0.0-0.6); ABSOLUTE LYMPHOCYTES (AUTO) 3.2 10^3/uL (0.5-4.7); ABSOLUTE MONOCYTES (AUTO) 0.4 10^3/uL (0.1-1.4); ABSOLUTE NEUT (AUTO) 4.9 10^3/uL (1.7-8.2); BASOPHILS % (AUTO) 0.6 % (0-2); EOSINOPHILS % (AUTO) 1.6 % (0-6); HEMATOCRIT 43.1 % (37.9-51.0); HEMOGLOBIN 14.6 g/dL (13.5-17.0); LYMPHOCYTES % (AUTO) 36.5 % (13-45); MEAN CORPUSCULAR HEMOGLOBIN 26.9 pg (27.0-33.4); MEAN CORPUSCULAR HGB CONC 33.9 g/dL (32.0-36.0); MEAN CORPUSCULAR VOLUME 79 fl (80-97); MONOCYTES % (AUTO) 4.9 % (3-13); PLATELET COUNT 213 10^3/uL (150-450); RED BLOOD COUNT 5.44 10^6/uL (4.35-5.55); RED CELL DISTRIBUTION WIDTH 13.5 % (11.5-14.0); SEGMENTED NEUTROPHILS % (AUTO) 56.4 % (42-78); TOTAL CELLS COUNTED % (AUTO) 100 %; WHITE BLOOD COUNT 8.7 10^3/uL (4.0-10.5)
[2017-12-29 20:36] LABS: VENOUS BLOOD BASE EXCESS 1.3 mmol/L; VENOUS BLOOD HCO3 27.2 mmol/L (20-32); VENOUS BLOOD PCO2 47.2 mmHg (35-63); VENOUS BLOOD PH 7.38 (7.30-7.42)
[2017-12-29 20:52] LABS: ALANINE AMINOTRANSFERASE 47 U/L (21-72); ALBUMIN 4.3 g/dL (3.5-5.0); ALKALINE PHOSPHATASE 54 U/L (38-126); ANION GAP 13 (5-19); ASPARTATE AMINO TRANSFERASE 27 U/L (17-59); BILIRUBIN,DIRECT 0.3 mg/dL (0.0-0.4); BILIRUBIN,TOTAL 0.3 mg/dL (0.2-1.3); BLOOD UREA NITROGEN 17 mg/dL (7-20); CALCIUM 9.6 mg/dL (8.4-10.2); CARBON DIOXIDE 27 mmol/L (22-30); CHLORIDE 105 mmol/L (98-107); GLUCOSE 146 mg/dL (75-110); POTASSIUM 4.4 mmol/L (3.6-5.0); SODIUM 144.6 mmol/L (137-145); TOTAL PROTEIN 7.4 g/dL (6.3-8.2)
[2017-12-29] MEDS ORDERED: GABAPENTIN 300 MG CAPSULE PO ONE (21:25)
--- NOTE | 2017-12-29 21:32 | ER Document Report ---
ED General - General Chief Complaint: Leg Pain Stated Complaint: LEG NUMBNESS Time Seen by Provider: 12/29/17 19:52 Notes: Patient is a 47-year-old male with a past medical history of type 2 diabetes without current insulin use with associated poor control of his blood sugars who presents with 4 days of progressively worsening bilateral lower extremity burning, tingling and irritation. The patient states that the pain is a constant, burning pain from the knees down on both legs. He states any touching of the area including with pants or sheets makes the pain much worse. Nothing seems to improve the pain. He denies a history of similar symptoms in the past. He has not talked to his primary care doctor regarding today's concerns. He denies any focal weakness or numbness. He has been taking his metformin and glipizide as directed. TRAVEL OUTSIDE OF THE [place] IN LAST 30 DAYS: No - Related Data Allergies/Adverse Reactions: Penicillins Allergy (Verified 12/05/17 12:43) Past Medical History - General Information source: Patient - Social History Smoking Status: Never Smoker Chew tobacco use (# tins/day): No Frequency of alcohol use: None Drug Abuse: None Lives with: Alone Family History: Arthritis, Hyperlipidemia, Hypertension, Malignancy Patient has suicidal ideation: No Patient has homicidal ideation: No - Past Medical History Cardiac Medical History: Reports: Hx Hypertension Endocrine Medical History: Reports: Hx Diabetes Mellitus Type 2 - non insulin dependent Renal/ Medical History: Denies: Hx Peritoneal Dialysis GI Medical History: Reports: Hx Gastroesophageal Reflux Disease Musculoskeltal Medical History: Reports Hx Arthritis Psychiatric Medical History: Reports: Hx Bipolar Disorder Traumatic Medical History: Reports: Hx Pneumothorax - Spontaneous Past Surgical History: Reports: Other - Chest tube for spontaneous pneumothorax - Immunizations Immunizations up to date: Yes Hx Diphtheria, Pertussis, Tetanus Vaccination: Yes Review of Systems - Review of Systems Notes: Constitutional: Negative for fever. HENT: Negative for sore throat. Eyes: Negative for visual changes. Cardiovascular: Negative for chest pain. Respiratory: Negative for shortness of breath. Gastrointestinal: Negative for abdominal pain, vomiting or diarrhea. Genitourinary: Negative for dysuria. Musculoskeletal: Positive for bilateral lower extremity pain Skin: Negative for rash. Neurological: Negative for headaches, weakness or numbness. 10 point ROS negative except as marked above and in HPI. Physical Exam - Vital signs Vitals: Temp Pulse Resp BP Pulse Ox 98.5 F 92 20 123/77 96 12/29/17 19:15 12/29/17 19:15 12/29/17 19:15 12/29/17 19:15 12/29/17 19:15 Interpretation: Normal Notes: PHYSICAL EXAMINATION: GENERAL: Well-appearing, well-nourished and in no acute distress. HEAD: Atraumatic, normocephalic. EYES: Pupils equal round and reactive to light, extraocular movements intact, sclera anicteric, conjunctiva are normal. ENT: nares patent, oropharynx clear without exudates. Moist mucous membranes. NECK: Normal range of motion, supple without lymphadenopathy LUNGS: Breath sounds clear to auscultation bilaterally and equal. No wheezes rales or rhonchi. HEART: Regular rate and rhythm without murmurs ABDOMEN: Soft, nontender, normoactive bowel sounds. No guarding, no rebound. No masses appreciated. EXTREMITIES: Normal range of motion, no pitting or edema. No cyanosis. NEUROLOGICAL: Face symmetric. Tongue protrudes midline. Extraocular motions intact. Pupils are 2 mm and equally reactive. Normal speech, normal gait. 5 out of 5 strength in both the distal and proximal upper and lower extremities bilaterally. Sensation is grossly intact throughout. Finger to nose testing normal. Pronator drift normal. PSYCH: Normal mood, normal affect. SKIN: Warm, Dry, normal turgor, no rashes or lesions noted. Course - Re-evaluation Re-evalutation: 12/29/17 21:26 Patient presents with signs and symptoms most consistent with bilateral peripheral neuropathy of the lower extremities secondary to uncontrolled type 2 diabetes. His A1c is still 10.9 today. I have emphasized the patient that this is the etiology of his peripheral neuropathy. Patient has no focal neurologic deficits on examination. 5 out of 5 strength both distally and proximally in the bilateral upper and lower extremities. Sensation is grossly intact throughout. Patient denies any symptoms or concerns otherwise. Labs are otherwise unremarkable. I have started the patient on gabapentin 300 mg 3 times daily and if emphasized to him the critical importance of getting his blood sugar under better control to prevent further propagation of his underlying peripheral neuropathy. At this time will discharge with return precautions and follow-up recommendations. Verbal discharge instructions given a the bedside and opportunity for questions given. Medication warnings reviewed. Patient is in agreement with this plan and has verbalized understanding of return precautions and the need for primary care follow-up in the next 24-72 hours. 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 You are being started on gabapentin 300 mg 3 times daily. This is the starting dose and this medicine often requires increasing dosages to improve your symptoms. However, the most important component to reduce your symptoms and prevent worsening of them is to get your blood sugar under better control. You need to speak with your primary care doctor urgently regarding getting your blood sugars under better control. You may require insulin to achieve this goal. You should return to the emergency department if you develop any focal areas of weakness, become unable to feel in a specific area of your body, develop a fever, persistent vomiting, or have any other symptoms that are worrisome to you. Prescriptions: Gabapentin 300 mg PO TID #90 capsule
[2017-12-29 22:35] VITALS: BP 122/75
== END 2017-12-29 22:35 | disposition home or self-care (01) ==
LOC: ER 19:10
DX: E11.42 Type 2 diabetes mellitus with diabetic polyneuropathy (principal); Z79.84 Long term (current) use of oral hypoglycemic drugs; I10 Essential (primary) hypertension; Z88.0 Allergy status to penicillin
CPT/HCPCS: 36415; 80053; 82803; 83036; 85025; 99283

== ENCOUNTER 2018-01-19 09:54 | Emergency (ER) | payer MEDICAID ==
--- NOTE | 2018-01-19 10:23 | ER Document Report ---
ED Medical Screen (RME) - General Chief Complaint: High Blood Pressure Stated Complaint: LEG PAIN, BLOOD PRESSURE ISSUE Time Seen by Provider: 01/19/18 10:16 Mode of Arrival: Ambulatory Information source: Patient Notes: 47 yr old male presents with complaints of left calf pain , numbness of over 1 month duration. pt seen and treated with gabapentin, notes 300mg id was too strong but the 200 mg tid is not enough I have greeted and performed a rapid initial assessment of this patient. A comprehensive ED assessment and evaluation of the patient, analysis of test results and completion of the medical decision making process will be conducted by additional ED providers. PHYSICAL EXAMINATION: GENERAL: Well-appearing, well-nourished and in no acute distress. HEAD: Atraumatic, normocephalic. EYES: Pupils equal round extraocular movements intact, conjunctiva are normal. ENT: Nares patent NECK: Normal range of motion LUNGS: No respiratory distress Musculoskeletal: Normal range of motion NEUROLOGICAL: Normal speech, normal gait. PSYCH: Normal mood, normal affect. SKIN: Warm, Dry, normal turgor, no rashes or lesions noted. TRAVEL OUTSIDE OF THE [place] IN LAST 30 DAYS: No - Related Data Allergies/Adverse Reactions: Penicillins Allergy (Verified 01/19/18 10:16) Past Medical History - Social History Chew tobacco use (# tins/day): No Frequency of alcohol use: None Drug Abuse: None - Past Medical History Cardiac Medical History: Reports: Hx Hypercholesterolemia, Hx Hypertension Endocrine Medical History: Reports: Hx Diabetes Mellitus Type 2 - non insulin dependent Renal/ Medical History: Denies: Hx Peritoneal Dialysis GI Medical History: Reports: Hx Gastroesophageal Reflux Disease Musculoskeltal Medical History: Reports Hx Arthritis Psychiatric Medical History: Reports: Hx Bipolar Disorder Traumatic Medical History: Reports: Hx Pneumothorax - Spontaneous Past Surgical History: Reports: Other - Chest tube for spontaneous pneumothorax - Immunizations Immunizations up to date: Yes Hx Diphtheria, Pertussis, Tetanus Vaccination: Yes History of Influenza Vaccine for 04/2017 - 09/2017 Season: No Physical Exam - Vital signs Vitals: Temp Pulse Resp BP Pulse Ox 98 F 93 16 126/74 H 97 01/19/18 09:58 01/19/18 09:58 01/19/18 09:58 01/19/18 09:58 01/19/18 09:58 Course - Vital Signs Vital signs: Temp Pulse Resp BP Pulse Ox 98 F 93 16 126/74 H 97 01/19/18 09:58 01/19/18 09:58 01/19/18 09:58 01/19/18 09:58 01/19/18 09:58
[2018-01-19 10:46] LABS: ABSOLUTE EOSINOPHILS # (AUTO) 0.2 10^3/uL (0.0-0.6); ABSOLUTE LYMPHOCYTES (AUTO) 2.8 10^3/uL (0.5-4.7); ABSOLUTE MONOCYTES (AUTO) 0.4 10^3/uL (0.1-1.4); BASOPHILS % (AUTO) 0.4 % (0-2); EOSINOPHILS % (AUTO) 1.9 % (0-6); HEMATOCRIT 44.7 % (37.9-51.0); LYMPHOCYTES % (AUTO) 33.1 % (13-45); MEAN CORPUSCULAR HEMOGLOBIN 26.8 pg (27.0-33.4); MEAN CORPUSCULAR HGB CONC 33.7 g/dL (32.0-36.0); MEAN CORPUSCULAR VOLUME 80 fl (80-97); MONOCYTES % (AUTO) 4.3 % (3-13); PLATELET COUNT 230 10^3/uL (150-450); RED BLOOD COUNT 5.62 10^6/uL (4.35-5.55); RED CELL DISTRIBUTION WIDTH 13.4 % (11.5-14.0); SEGMENTED NEUTROPHILS % (AUTO) 60.3 % (42-78); TOTAL CELLS COUNTED % (AUTO) 100 %; WHITE BLOOD COUNT 8.3 10^3/uL (4.0-10.5)
[2018-01-19 11:09] LABS: ALANINE AMINOTRANSFERASE 46 U/L (21-72); ALBUMIN 4.5 g/dL (3.5-5.0); ALKALINE PHOSPHATASE 52 U/L (38-126); ANION GAP 13 (5-19); ASPARTATE AMINO TRANSFERASE 30 U/L (17-59); BILIRUBIN,DIRECT 0.3 mg/dL (0.0-0.4); BILIRUBIN,TOTAL 0.5 mg/dL (0.2-1.3); BLOOD UREA NITROGEN 15 mg/dL (7-20); CALCIUM 9.7 mg/dL (8.4-10.2); CARBON DIOXIDE 26 mmol/L (22-30); CHLORIDE 104 mmol/L (98-107); CREATINE KINASE 63 U/L (55-170); GLUCOSE 193 mg/dL (75-110); POTASSIUM 4.3 mmol/L (3.6-5.0); SODIUM 143.1 mmol/L (137-145); TOTAL PROTEIN 7.5 g/dL (6.3-8.2)
--- NOTE | 2018-01-19 11:25 | ER Document Report ---
ED General <DAKOTA SANDERS - Last Filed: 01/19/18 11:34> - General Mode of Arrival: Ambulatory Information source: Patient TRAVEL OUTSIDE OF THE [place] IN LAST 30 DAYS: No <KAYODE POWELL - Last Filed: 01/19/18 11:43> - General Chief Complaint: High Blood Pressure Stated Complaint: LEG PAIN, BLOOD PRESSURE ISSUE Time Seen by Provider: 01/19/18 10:16 Notes: Patient is a 47 year old male with HTN, type 2 diabetes and diabetic peripheral neuropathy presents to the emergency department complaining of left leg pain and numbness as well as elevated blood sugars. Patient states today while walking in [employer] his leg "began to feel like rubber". He also states when he checked his blood sugar this morning it was 326. Of significance, patient presented to this emergency department on 12/29/2017 complaining of bilateral leg burning and numbness. He was diagnosed with diabetic peripheral neuropathy and prescribed 300 mg of Gabapentin. Patient filled this prescription on 12/31/2017 stated this dose of Gabapentin was too strong and saw his PCP, Dr. Clark who gave him a 100 mg prescription of Gabapentin on 01/01/2018. He states the latter dose is not working well for him. During his visit on 12/29/2017 patient was found to have an A1C of 10.9 as well as blood sugars running greater than 450 on December 05, 2017. Patient was recently prescribed Atorvastatin on 01/06/2018. (KAYODE POWELL) - Related Data Allergies/Adverse Reactions: Penicillins Allergy (Verified 01/19/18 10:16) Past Medical History - General Information source: Patient - Social History Smoking Status: Never Smoker Chew tobacco use (# tins/day): No Frequency of alcohol use: None Drug Abuse: None Family History: Arthritis, Hyperlipidemia, Hypertension, Malignancy Patient has suicidal ideation: No Patient has homicidal ideation: No - Past Medical History Cardiac Medical History: Reports: Hx Hypercholesterolemia, Hx Hypertension Endocrine Medical History: Reports: Hx Diabetes Mellitus Type 2 - non insulin dependent GI Medical History: Reports: Hx Gastroesophageal Reflux Disease Musculoskeltal Medical History: Reports Hx Arthritis Psychiatric Medical History: Reports: Hx Bipolar Disorder Traumatic Medical History: Reports: Hx Pneumothorax - Spontaneous Past Surgical History: Reports: Other - Chest tube for spontaneous pneumothorax - Immunizations Immunizations up to date: Yes Hx Diphtheria, Pertussis, Tetanus Vaccination: Yes <KAYODE POWELL - Last Filed: 01/19/18 11:43> Review of Systems - Review of Systems Constitutional: No symptoms reported EENT: No symptoms reported Cardiovascular: No symptoms reported Respiratory: No symptoms reported Gastrointestinal: No symptoms reported Genitourinary: No symptoms reported Male Genitourinary: No symptoms reported Musculoskeletal: See HPI Skin: No symptoms reported Hematologic/Lymphatic: No symptoms reported Neurological/Psychological: See HPI -: Yes All other systems reviewed and negative <KAYODE POWELL - Last Filed: 01/19/18 11:43> Physical Exam - General General appearance: Appears well, Alert In distress: None - HEENT Head: Normocephalic, Atraumatic Eyes: Normal Conjunctiva: Normal Extraocular movements intact: Yes Pupils: PERRL Neck: Normal - Respiratory Respiratory status: No respiratory distress Chest status: Nontender Breath sounds: Normal Chest palpation: Normal - Cardiovascular Rhythm: Regular Heart sounds: Normal auscultation Murmur: No Friction rub: No Gallop: None auscultated - Extremities General upper extremity: Normal ROM General lower extremity: Normal ROM - Neurological Neuro grossly intact: Yes Cognition: Normal Orientation: AAOx4 [place] Coma Scale Eye Opening: Spontaneous [place] Coma Scale Verbal: Oriented [place] Coma Scale Motor: Obeys Commands [place] Coma Scale Total: 15 Speech: Normal - Psychological Associated symptoms: Normal affect, Normal mood - Skin Skin Temperature: Warm Skin Moisture: Dry Skin Color: Normal <KAYODE POWELL Last Filed: 01/19/18 11:43> - Vital signs Vitals: Temp Pulse Resp BP Pulse Ox 98 F 93 16 126/74 H 97 01/19/18 09:58 01/19/18 09:58 01/19/18 09:58 01/19/18 09:58 01/19/18 09:58 Course - Laboratory Result Diagrams: 01/19/18 10:28 01/19/18 10:28 <DAKOTA SANDERS - Last Filed: 01/19/18 11:34> - Laboratory Result Diagrams: 01/19/18 10:28 01/19/18 10:28 <ANDREKAYODE JEAN - Last Filed: 01/19/18 11:43> - Re-evaluation Re-evalutation: 01/19/18 11:34 Total CK is quite low, it is unlikely the statin has anything to do with his lower extremity problems. I suspect this is his diabetic peripheral neuropathy and he needs to take the higher dose of gabapentin to help reduce his symptoms. (DAKOTA SANDERS) - Vital Signs Vital signs: Temp Pulse Resp BP Pulse Ox 98 F 93 16 126/74 H 97 01/19/18 09:58 01/19/18 09:58 01/19/18 09:58 01/19/18 09:58 01/19/18 09:58 - Laboratory Laboratory results interpreted by me: 01/19/18 01/19/18 10:28 10:28 RBC 5.62 H MCH 26.8 L Glucose 193 H Discharge <DAKOTA SANDERS - Last Filed: 01/19/18 11:34> <KAYODE POWELL - Last Filed: 01/19/18 11:43> - Discharge Clinical Impression: Bilateral lower extremity pain, Diabetic peripheral neuropathy Condition: Stable Disposition: ADMITTED INPATIENT Additional Instructions: Neuropathy Your symptoms are MOST LIKELY due to neuropathy. Neuropathy is nerve damage. There are many causes, including diabetes, immune disease, alcohol, blood vessel disease, and vitamin deficiency. The usual symptoms are pain and numbness. Neuropathy can occur anywhere, but it's most likely in the "longest" nerves. That's why the feet are most often affected. Sometimes the nerve damage can heal. But if the symptoms have lasted more than a few months, the damage is permanent. To avoid further damage, treat your underlying health problems carefully. If you have diabetes, keep the blood sugar as normal as possible. Avoid alcohol. Treat high blood pressure and high cholesterol. Treating chronic pain can be a problem. Obviously, you don't want to become addicted to pain medicine. Work closely with your doctor on pain management. Your options include antiinflammatory medicine, anti seizure medicine, antidepressants, and pain clinic management. Contact the doctor if there is a significant change. Your blood sugar is 193 today. I suspect your lower extremity symptoms are due to the diabetic peripheral neuropathy. Try going back to taking the gabapentin at 300 mg every 8 hours for the next few days. Do not drive or put yourself in a position to be hurt from dizziness for the next 2 days when you go to the increased dose of gabapentin. If the increased dose seems to help with your symptoms after a few days, talk with your doctor about increasing the dose to 600 mg every 8 hours. Follow-up with your doctor this week to discuss your blood sugar control. Take copies of the lab work with you. RETURN TO THE EMERGENCY ROOM IF ANY NEW OR WORSENING SYMPTOMS. Davidibe Attestation: 01/19/18 11:39 I personally performed the services described in the documentation, reviewed and edited the documentation which was dictated to the scribe in my presence, and it accurately records my words and actions. (DAKOTA SANDERS) Davidibe Documentation - Scribe Written by Donovan:: Donovan Holden, 01/19/2018 11:33 acting as scribe for :: Paula <KAYODE POWELL - Last Filed: 01/19/18 11:43>
[2018-01-19 11:54] VITALS: BP 127/69
== END 2018-01-19 11:53 | disposition home or self-care (01) ==
LOC: ER 09:54
DX: M79.605 Pain in left leg (principal); M79.604 Pain in right leg; E11.42 Type 2 diabetes mellitus with diabetic polyneuropathy; E11.65 Type 2 diabetes mellitus with hyperglycemia; I10 Essential (primary) hypertension; R20.0 Anesthesia of skin
CPT/HCPCS: 36415; 80053; 82550; 85025; 85379; 99283

== ENCOUNTER 2018-02-02 09:22 | Emergency (ER) | payer OTHER, MEDICAID ==
[2018-02-02 09:31] VITALS: BP 109/71
[2018-02-02] MEDS ORDERED: KETOROLAC TROMETHAMINE 60 MG/2 ML SDV IM ONE (09:38)
--- NOTE | 2018-02-02 09:41 | ER Document Report ---
ED General - General Chief Complaint: Shoulder Pain Stated Complaint: SHOULDER PAIN Time Seen by Provider: 02/02/18 09:33 Mode of Arrival: Ambulatory Information source: Patient Notes: 47-year-old male with hypertension, hyperlipidemia, type 2 diabetes presents with complaint of left shoulder pain that started 2 days prior to arrival. Patient does not recall any particular injury. 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 He states that he awoke on Saturday with an aching throbbing pain that bower and radiates down his left arm. He denies any associated neck pain, chest pain. He denies prior similar symptoms. TRAVEL OUTSIDE OF THE [place] IN LAST 30 DAYS: No - HPI Onset: Other Onset/Duration: Gradual, Persistent, Worse Quality of pain: Achy, Burning, Throbbing Severity: Mild Pain Level: 1 Associated symptoms: None Exacerbated by: Movement Relieved by: Remaining still Similar symptoms previously: No Recently seen / treated by doctor: No - Related Data Allergies/Adverse Reactions: Penicillins Allergy (Verified 02/02/18 09:37) Past Medical History - General Information source: Patient - Social History Smoking Status: Never Smoker Chew tobacco use (# tins/day): No Frequency of alcohol use: None Drug Abuse: None Lives with: Family Family History: Arthritis, Hyperlipidemia, Hypertension, Malignancy Patient has suicidal ideation: No Patient has homicidal ideation: No - Past Medical History Cardiac Medical History: Reports: Hx Hypercholesterolemia, Hx Hypertension Endocrine Medical History: Reports: Hx Diabetes Mellitus Type 2 - non insulin dependent Renal/ Medical History: Denies: Hx Peritoneal Dialysis GI Medical History: Reports: Hx Gastroesophageal Reflux Disease Musculoskeletal Medical History: Reports Hx Arthritis Psychiatric Medical History: Reports: Hx Bipolar Disorder Traumatic Medical History: Reports: Hx Pneumothorax - Spontaneous Past Surgical History: Reports: Other - Chest tube for spontaneous pneumothorax - Immunizations Immunizations up to date: Yes Hx Diphtheria, Pertussis, Tetanus Vaccination: Yes Review of Systems - Review of Systems Notes: REVIEW OF SYSTEMS: CONSTITUTIONAL : Denies fever, chills, or sweats. Denies recent illness. Denies weight loss, recent hospitalizations. EENT: Denies visual changes, eye pain. Denies nasal or sinus congestion or discharge. Denies sore throat, oral lesions, difficulty swallowing. CARDIOVASCULAR: Denies chest pain. Denies palpitations. Denies lower extremity edema. RESPIRATORY: Denies cough, cold, or chest congestion. Denies shortness of breath, wheezing. GASTROINTESTINAL: Denies abdominal pain or distention. Denies nausea, vomiting , or diarrhea. Denies blood in vomitus, stools, or per rectum. Denies black, tarry stools. Denies constipation. GENITOURINARY: Denies difficulty urinating, painful urination, frequency, blood in urine, or vaginal discharge. MUSCULOSKELETAL: Denies back or neck pain or stiffness. SKIN: Denies rash, lesions or sores. HEMATOLOGIC : Denies easy bruising or bleeding. LYMPHATIC: Denies swollen glands. NEUROLOGICAL: Denies confusion or altered mental status. Denies passing out or loss of consciousness. Denies dizziness or lightheadedness. Denies headache. Denies weakness or paralysis. Denies problems difficulty with ambulation, slurred speech. Denies sensory loss, numbness, or tingling. Denies seizures. PSYCHIATRIC: Denies anxiety or stress. Denies depression, suicidal ideation, or homicidal ideation. Denies visual or auditory hallucinations. Physical Exam - Vital signs Vitals: Temp Pulse Resp BP Pulse Ox 98.1 F 91 18 109/71 98 02/02/18 09:29 02/02/18 09:29 02/02/18 09:29 02/02/18 09:29 02/02/18 09:29 - Notes Notes: PHYSICAL EXAMINATION: GENERAL: Well-appearing, well-nourished and in no acute distress. HEAD: Atraumatic, normocephalic. EYES: Pupils equal round and reactive to light, extraocular movements intact, sclera anicteric, conjunctiva are normal. ENT: Nares patent, oropharynx clear without exudates. Moist mucous membranes. NECK: Normal range of motion, supple without lymphadenopathy LUNGS: Breath sounds clear to auscultation bilaterally and equal. No wheezes rales or rhonchi. HEART: Regular rate and rhythm without murmurs ABDOMEN: Soft, nontender, nondistended abdomen. No guarding, no rebound. No masses appreciated. Musculoskeletal: Normal range of motion, no pitting or edema. No cyanosis. Right shoulder-full range of motion, no obvious deformity, no neuro deficits. Cap refill less than 2 seconds. Radial pulse 2/4. , NEUROLOGICAL: Cranial nerves grossly intact. Normal speech, normal gait. Normal sensory, motor exams PSYCH: Normal mood, normal affect. SKIN: Warm, Dry, normal turgor, no rashes or lesions noted. Course - Re-evaluation Re-evalutation: 02/02/18 09:53 47-year-old male presents with complaint of left shoulder pain that started 2 days prior to arrival with out apparent injury. Patient has full range of motion of the shoulder, no neurologic deficits. Strength is intact. Because of the radicular nature of the pain I will start him on prednisone, Motrin. No signs of septic joint, rotator cuff tear. Patient provided the opportunity to ask questions, and express concerns. Discharge instructions discussed. Patient is agreeable with discharge home. Return indications explained and discussed with the patient who displays understanding. Patient encouraged to return to the emergency department immediately with any concerns. - Vital Signs Vital signs: Temp Pulse Resp BP Pulse Ox 98.1 F 91 18 109/71 98 02/02/18 09:29 02/02/18 09:29 02/02/18 09:29 02/02/18 09:29 02/02/18 09:29 Discharge - Discharge Clinical Impression: Left shoulder strain Qualifiers: Encounter type: initial encounter Qualified Code(s): S46.912A - Strain of unspecified muscle, fascia and tendon at shoulder and upper arm level, left arm , initial encounter Condition: Good Disposition: HOME, SELF-CARE Instructions: Muscle Strain ([facility]), Shoulder Injury ([facility]), Sprain ([facility]) Additional Instructions: Follow up with your physician tomorrow for further care or return to the ED IMMEDIATELY if symptoms worsen or new concerns occur. If you cannot afford to follow up with your primary care physician a list of low cost clinics have been provided at the end of your discharge papers as well. Prescriptions: Meloxicam [Mobic] 15 mg PO DAILY #14 tablet Prednisone [Deltasone 20 mg Tablet] 3 tab PO DAILY 5 Days #15 tablet Referrals: MITCHELL BURGOS PA-C [Primary Care Provider] - Follow up as needed
[2018-02-02] MEDS ORDERED: IBUPROFEN 600 MG TABLET PO ONE (09:48)
== END 2018-02-02 09:55 | disposition home or self-care (01) ==
LOC: ER 09:22
DX: S46.912A Strain of unspecified muscle, fascia and tendon at shoulder and upper arm level, left arm, initial encounter (principal); M25.512 Pain in left shoulder; M79.602 Pain in left arm; X50.0XXA Overexertion from strenuous movement or load, initial encounter; E11.9 Type 2 diabetes mellitus without complications; I10 Essential (primary) hypertension
CPT/HCPCS: 99283

== ENCOUNTER → 2018-05-28 | Outpatient (CLI) | payer MEDICAID ==
--- NOTE | 2018-05-30 08:50 | XCELERA REPORT ---
[address] [address] Lower Extremity Arterial Evaluation Name: TEVINMAIA JR Age: 47 yrs Gender: Male : 1970 Patient Status: Preadmit Patient Location: [facility] Study Date: 05/28/2018 01:09 PM Procedure: Normal velocity and triphasic waveforms noted from the Common Femoral artery to the infrageniculate vessels. 0 % stenosis noted. Ankle Brachial index is 1.00. Reason For Study: PVD Ordering Physician: MITCHELL BURGOS PA-C Performed By: Griffin Jain Measurements and Calculations Right Left NECKTIE OPERATOR POCKETS AND PIECES PSV 133.6 117.9 cm/sec Prox PFA PSV -65.6 -81.5 cm/sec Prox Pop A PSV 52.4 63.7 cm/sec Dist JONATAN PSV 47.8 62.9 cm/sec Dist POCKET STITCHER PSV 47.5 41.3 cm/sec Cuco Pedis PSV -59.7 -90.8 cm/sec Left Side Arterial Evaluation Normal velocity and triphasic waveforms noted from the Common Femoral artery to the infrageniculate vessels. 0 % stenosis noted. Ankle Brachial index is 0.93. Interpretation Summary No hemodynamically significant lesions in the bilateral lower extremities, on duplex imaging, at rest. Ankle Brachial indices are normal, suggesting that there is no significant arterial compromise. : MITCHELL BURGOS PA-C > Kam Taylor
== END ==
LOC: SP 17:11
PROVIDERS: ATTEND Physician Assistant
DX: I73.9 Peripheral vascular disease, unspecified (principal)
CPT/HCPCS: 93925

== ENCOUNTER 2018-06-02 17:42 | Emergency (ER) | payer MEDICAID ==
[2018-06-02] MEDS ORDERED: IBUPROFEN 600 MG TABLET PO ONE (20:06)
--- NOTE | 2018-06-02 20:06 | ER Document Report ---
HPI - HPI Pain Level: 4 Notes: Patient is a 47-year-old male who presents with chief complaint of left lower extremity pain after falling just prior to arrival. Patient states that he tripped and fell and hit the left rosas onto a wooden piece of furniture. He states that he did not want to come to the emergency department however his insisted that he come to get checked out. Patient is able to bear weight without any difficulty and has only complaint of mild pain over the anterior tib -fib area. - EENT EENT: DENIES: Sore Throat, Ear Pain, Eye problems - NEURO Neurology: REPORTS: Weakness - lyrica med dose change, Dizzinesss / Vertigo. DENIES: Headache, Vision blurred - CARDIOVASCULAR Cardiovascular: DENIES: Chest pain - RESPIRATORY Respiratory: DENIES: Trouble Breathing, Coughing - GASTROINTESTINAL Gastrointestinal: DENIES: Abdominal Pain, Black / Bloody Stools - URINARY Urinary: DENIES: Dysuria, Urgency, Frequency - MUSCULOSKELETAL Musculoskeletal: REPORTS: Extremity pain - left leg Past Medical History - General Information source: Patient - Social History Smoking Status: Never Smoker Frequency of alcohol use: None Drug Abuse: None Family History: Arthritis, Hyperlipidemia, Hypertension, Malignancy Patient has suicidal ideation: No Patient has homicidal ideation: No - Past Medical History Cardiac Medical History: Reports: Hx Hypercholesterolemia, Hx Hypertension Endocrine Medical History: Reports: Hx Diabetes Mellitus Type 2 - non insulin dependent Renal/ Medical History: Denies: Hx Peritoneal Dialysis GI Medical History: Reports: Hx Gastroesophageal Reflux Disease Musculoskeletal Medical History: Reports Hx Arthritis Psychiatric Medical History: Reports: Hx Bipolar Disorder Traumatic Medical History: Reports: Hx Pneumothorax - Spontaneous Past Surgical History: Reports: Other - Chest tube for spontaneous pneumothorax - Immunizations Immunizations up to date: Yes Hx Diphtheria, Pertussis, Tetanus Vaccination: Yes Vertical Provider Document - CONSTITUTIONAL Notes: PHYSICAL EXAMINATION: GENERAL: Well-appearing, well-nourished and in no acute distress. HEAD: Atraumatic, normocephalic. EYES: Pupils equal round extraocular movements intact, conjunctiva are normal. ENT: Nares patent NECK: Normal range of motion LUNGS: No respiratory distress Musculoskeletal: Normal range of motion, mild erythema noted to the anterior left rosas. NEUROLOGICAL: Normal speech, normal gait. PSYCH: Normal mood, normal affect. SKIN: Warm, Dry, normal turgor, no rashes or lesions noted. - INFECTION CONTROL TRAVEL OUTSIDE OF THE [place] IN LAST 30 DAYS: No Course - Re-evaluation Re-evalutation: 06/02/18 20:08 Examination is consistent with a superficial contusion. No indication for imaging. Patient is agreeable to this plan. Patient will be given dose of ibuprofen and discharged home in stable condition. - Vital Signs Vital signs: Temp Pulse Resp BP Pulse Ox 98.0 F 86 18 116/65 96 06/02/18 18:25 06/02/18 18:25 06/02/18 18:25 06/02/18 18:25 06/02/18 18:25 Discharge - Discharge Clinical Impression: Fall Qualifiers: Encounter type: initial encounter Qualified Code(s): W19.XXXA - Unspecified fall, initial encounter Contusion Qualifiers: Encounter type: initial encounter Contusion area: lower leg Laterality: left Qualified Code(s): S80.12XA - Contusion of left lower leg, initial encounter Condition: Stable Disposition: HOME, SELF-CARE Additional Instructions: Contusion Your injury has resulted in a contusion -- a crushing of the deep tissues. No injury to important structures was detected during the physician's exam. Contusions vary in the amount of pain they cause, and in the length of time required for healing. Typically, the area will become bruised, and will remain painful to touch for two or three weeks. However, most patients are back to working and playing within a few days. After the initial period of rest and cold-packs, your symptoms (together with the doctor's recommendations) will determine how rapidly you can get back to full activity. Usually this means "do what feels okay, but don't do things that hurt." If re-examination was recommended, it's important to follow up as instructed. Call the doctor or return any time if pain increases, if swelling becomes severe, if you develop numbness or weakness in an injured extremity, or if any other alarming symptoms occur. Ice & Elevation Apply ice packs frequently against the painful area. Many different schedules are recommended, such as "20 minutes on, 20 minutes off" or "one hour ice, two hours rest." If you need to work, you may need to go longer between ice treatments. You should plan to have the area ice packed AT LEAST one- fourth of the time. The ice should be applied over the wrap, tape, or splint, or over a layer of cloth -- not directly against the skin. Some ice bags have a built-in cloth and can be put directly on the skin. Your injured part should be elevated as much as possible over the next 48 hours. Try to keep the injury above the level of the heart. Avoid use of the injured area. Elevation and rest will decrease the swelling. Referrals: MITCHELL BURGOS PA-C [Primary Care Provider] - Follow up as needed
[2018-06-02 20:29] VITALS: BP 112/86
== END 2018-06-02 20:29 | disposition home or self-care (01) ==
LOC: ER 17:42
DX: S80.12XA Contusion of left lower leg, initial encounter (principal); R53.1 Weakness; R42 Dizziness and giddiness; W01.190A Fall on same level from slipping, tripping and stumbling with subsequent striking against furniture, initial encounter; E78.00 Pure hypercholesterolemia, unspecified; I10 Essential (primary) hypertension; Z79.84 Long term (current) use of oral hypoglycemic drugs
CPT/HCPCS: 99283; J3490

== ENCOUNTER 2018-09-14 12:03 | Emergency (ER) | payer MEDICAID ==
[2018-09-14] MEDS ORDERED: NAPROXEN 250 MG TABLET PO ONE (12:31)
--- NOTE | 2018-09-14 12:31 | ER Document Report ---
ED General - General Chief Complaint: Arm Pain Stated Complaint: LEG AND ARM CRAMPS Time Seen by Provider: 09/14/18 12:24 Primary Care Provider: MITCHELL BURGOS PA-C [Primary Care Provider] - Follow up as needed Notes: Patient is a 47-year-old male with diabetes and diabetic neuropathy that presents to the emergency department for chief complaint of hand and leg pain. Patient reports that he is intermittently getting spasms in his hands and feet as well as in his legs, he was diagnosed with diabetic neuropathy, but states he cannot take Lyrica or gabapentin, as he does not tolerate them. He is been having the symptoms for about a year now but is been worse over the past several days. He is scheduled to go see pain management in October, but his pain has been worse recently so he decided come to the emergency department. He describes as a charley horse in these episodes occur, describes it as a 8 out of 10 when it comes on, at this time he rates his pain as a 2 out of 10 describes as an aching sensation mainly in his hands and upper arms. He also gets these pains in his feet, but not at this time. He states his diabetes is better controlled, but was poorly controlled at one time. Denies any any fevers, chills, night sweats, chest pain, shortness of breath, difficulty breathing, nausea, vomiting or abdominal pain. Past Medical History: Diabetes mellitus, diabetic neuropathy, hypertension Past Surgical History: Lung surgery remotely Social History: Denies tobacco, alcohol or drug use. Family History: Reviewed and noncontributory for presenting illness Allergies: Reviewed, see documented allergy list. REVIEW OF SYSTEMS: Other than noted above, the 12 point review of systems was reviewed with the patient and were negative, all pertinent findings are included in the HPI. PHYSICAL EXAMINATION: Vital signs reviewed, nursing noted reviewed. GENERAL: Well-appearing, well-nourished and in no acute distress. HEAD: Atraumatic, normocephalic. EYES: Eyes appear normal, sclera anicteric, conjunctiva are normal. ENT: Moist mucous membranes. NECK: Normal range of motion, supple without lymphadenopathy LUNGS: Breath sounds clear to auscultation bilaterally and equal. No wheezes ra les or rhonchi. HEART: Regular rate and rhythm without murmurs EXTREMITIES: Nontender, good range of motion, no pitting or edema. NEUROLOGICAL: No focal neurological deficits. Moves all extremities spontaneously Motor and sensory grossly intact on exam. PSYCH: Normal mood, normal affect. SKIN: Warm, Dry, normal turgor, no rashes or lesions noted on exposed skin TRAVEL OUTSIDE OF THE [place] IN LAST 30 DAYS: No - Related Data Allergies/Adverse Reactions: Penicillins Allergy (Verified 09/14/18 12:27) Past Medical History - Social History Smoking Status: Former Smoker Chew tobacco use (# tins/day): No Frequency of alcohol use: None Drug Abuse: None Family History: Arthritis, Hyperlipidemia, Hypertension, Malignancy Patient has suicidal ideation: No Patient has homicidal ideation: No - Past Medical History Cardiac Medical History: Reports: Hx Hypercholesterolemia, Hx Hypertension Endocrine Medical History: Reports: Hx Diabetes Mellitus Type 2 - non insulin dependent Renal/ Medical History: Denies: Hx Peritoneal Dialysis GI Medical History: Reports: Hx Gastroesophageal Reflux Disease Musculoskeletal Medical History: Reports Hx Arthritis Psychiatric Medical History: Reports: Hx Bipolar Disorder Traumatic Medical History: Reports: Hx Pneumothorax - Spontaneous Past Surgical History: Reports: Other - Chest tube for spontaneous pneumothorax - Immunizations Immunizations up to date: Yes Hx Diphtheria, Pertussis, Tetanus Vaccination: Yes Physical Exam - Vital signs Vitals: Temp Pulse Resp BP Pulse Ox 98.5 F 81 16 137/84 H 96 09/14/18 12:15 09/14/18 12:15 09/14/18 12:15 09/14/18 12:15 09/14/18 12:15 Course - Re-evaluation Re-evalutation: Patient's electrolytes were obtained, as well as his glucose, his blood glucose was in the 200s, no anion gap, potassium and sodium were normal otherwise, patient otherwise appeared well, he was given naproxen for his pain, as not impressed with the patient's exam, he did not have any focal deficits, he did not have any spasming on my exam, he had excellent strength distally in all extremities. And no clonus or hyper spasticity was noted. He is advised to follow-up with his primary care, given a prescription for anti-inflammatories and muscle relaxers and to follow-up patient was agreeable to this plan of care and discharge. Laboratory 09/14/18 12:48 Sodium 142.3 Potassium 4.4 Chloride 105 Carbon Dioxide 26 Anion Gap 11 BUN 18 Creatinine 0.89 Est GFR ( Amer) > 60 Est GFR (Non-Af Amer) > 60 Glucose 265 H Calcium 9.9 Magnesium 1.9 - Vital Signs Vital signs: Temp Pulse Resp BP Pulse Ox 98.0 F 73 13 150/83 H 99 09/14/18 14:13 09/14/18 14:13 09/14/18 14:13 09/14/18 14:13 09/14/18 14:13 - Laboratory Result Diagrams: 09/14/18 12:48 Laboratory results interpreted by me: 09/14/18 12:48 Glucose 265 H Discharge - Discharge Clinical Impression: Muscle spasm Condition: Stable Disposition: HOME, SELF-CARE Instructions: Myalagia (Muscle Pain) ([facility]) Additional Instructions: Please follow-up with pain management as previously directed, and take the medications as prescribed, if you have worsening pain or things are not improving, you can always return to the emergency department to be reevaluated. Your blood work today was normal, normal electrolytes, normal potassium and sodium. Prescriptions: Methocarbamol [Robaxin 750 mg Tablet] 750 mg PO TID PRN #30 tablet PRN Reason: Muscle Spasms RX: Naproxen [Naprosyn] 500 mg PO BID PRN #30 tablet PRN Reason: muscle pain Referrals: MITCHELL BURGOS PA-C [Primary Care Provider] - Follow up as needed
[2018-09-14 13:38] LABS: ANION GAP 11 (5-19); BLOOD UREA NITROGEN 18 mg/dL (7-20); CALCIUM 9.9 mg/dL (8.4-10.2); CARBON DIOXIDE 26 mmol/L (22-30); CHLORIDE 105 mmol/L (98-107); GLUCOSE 265 mg/dL (75-110); POTASSIUM 4.4 mmol/L (3.6-5.0); SODIUM 142.3 mmol/L (137-145)
[2018-09-14 14:44] VITALS: BP 150/83
== END 2018-09-14 14:15 | disposition home or self-care (01) ==
LOC: ER 12:03
DX: M62.838 Other muscle spasm (principal); E11.40 Type 2 diabetes mellitus with diabetic neuropathy, unspecified; I10 Essential (primary) hypertension; Z87.891 Personal history of nicotine dependence; Z88.0 Allergy status to penicillin
CPT/HCPCS: 99283; 36415; 83735; 80048; J3490

== ENCOUNTER 2018-10-25 04:49 | Emergency (ER) | payer MEDICAID ==
--- NOTE | 2018-10-25 05:27 | ER Document Report ---
ED General - General Chief Complaint: Medical Complaint Stated Complaint: LEFT LEG PAIN,BACK PAIN Time Seen by Provider: 10/25/18 05:13 Primary Care Provider: MITCHELL BURGOS PA-C [Primary Care Provider] - Follow up as needed Mode of Arrival: Ambulatory Information source: Patient TRAVEL OUTSIDE OF THE [place] IN LAST 30 DAYS: No - HPI Patient complains to provider of: hand and leg cramps Notes: Patient is here with complaints of pain and cramping to his left hand and left leg. This been going on for last several weeks. He was seen here for the same thing in August and given Naprosyn which seemed to help some. He has an appointment scheduled with his doctor [facility], but it is not for another the next few weeks. States that he continues to have pain and cramping to the left arm and left leg. 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 He had to use his right hand in order to open it up. He states he has had some intermittent cramping to the left leg as well. He denies any traumatic injuries or falls. No bowel or bladder dysfunction. No chest pain or shortness of breath. No nausea, vomiting, diarrhea. No rash. No blurred or loss vision. He also states that he has been urinating more frequently than normal for the last few days. No dysuria or hematuria. No rash. Pain is intermittent, crampy in nature, moderate to severe when he is having it. He denies any blurred or loss vision. No numbness, tingling, weakness. No other complaints. - Related Data Allergies/Adverse Reactions: Penicillins Allergy (Verified 09/14/18 12:27) Past Medical History - Social History Smoking Status: Never Smoker Chew tobacco use (# tins/day): No Frequency of alcohol use: None Drug Abuse: None Family History: Arthritis, Hyperlipidemia, Hypertension, Malignancy Patient has suicidal ideation: No Patient has homicidal ideation: No - Past Medical History Cardiac Medical History: Reports: Hx Hypercholesterolemia, Hx Hypertension Endocrine Medical History: Reports: Hx Diabetes Mellitus Type 2 - non insulin dependent Renal/ Medical History: Denies: Hx Peritoneal Dialysis GI Medical History: Reports: Hx Gastroesophageal Reflux Disease Musculoskeletal Medical History: Reports Hx Arthritis Psychiatric Medical History: Reports: Hx Bipolar Disorder Traumatic Medical History: Reports: Hx Pneumothorax - Spontaneous Past Surgical History: Reports: Other - Chest tube for spontaneous pneumothorax - Immunizations Immunizations up to date: Yes Hx Diphtheria, Pertussis, Tetanus Vaccination: Yes Review of Systems - Review of Systems -: Yes All other systems reviewed and negative Physical Exam - Vital signs Vitals: Temp Pulse Resp BP Pulse Ox 97.6 F 103 H 16 145/99 H 100 10/25/18 04:54 10/25/18 04:54 10/25/18 04:54 10/25/18 04:54 10/25/18 04:54 - Notes Notes: GENERAL: alert, cooperative, nontoxic, no distress. HEAD: normocephalic, atraumatic EYES: conjunctiva pink without discharge, no external redness or swelling. EARS: no external swelling, no external redness NOSE: atraumatic, no external swelling MOUTH/THROAT: mucous membranes moist and pink, posterior pharynx without erythema, swelling, exudate. No trismus or drooling. NECK: soft, supple, full range of motion, no meningismus. CHEST: no distress, lungs clear and equal throughout. No wheezing, rales, rhonchi. CARDIAC: regular rate and rhythm, no murmur, normal capillary refill, normal pu lses. No peripheral edema noted. ABDOMEN: Soft, nontender. BACK: full range of motion, no CVA tenderness. EXTREMITIES: full range of motion of all extremities. No redness, no swelling. NEURO: alert and oriented x 3, no focal deficits, full range of motion of all extremities. PYSCH: appropriate mood, affect. Patient is cooperative. SKIN: pink, warm, dry, no rash. Course - Re-evaluation Re-evalutation: 10/25/18 06:21 Patient resting comfortably at this time. Gone over lab results with the patient. He is noted to have a blood sugar over 400. Bicarb is normal, anion gap is normal, VBG is currently pending, although he does not appear to be in DKA. Patient has IV fluids and insulin ordered. We will continue to evaluate. Remainder of his electrolytes are unremarkable with no significant abnormalities. 10/25/18 07:37 Patient resting comfortably at this time. Blood sugar down to 350. Once his second liter of fluids has finished, the patient can be discharged home. Patient is nontoxic-appearing with stable vitals. Here with complaints mainly of some cramping of his left leg and his left arm which is been dealing with for several weeks. Left lites are unremarkable. He is a nonfocal exam. Blood sugar was noted to be elevated, is not in DKA. At this point the patient can be discharged home with prescription for Naprosyn. He has an appointment scheduled with his primary care doctor in the next few weeks which she was instructed to keep. He was instructed to follow-up sooner he is having any worsening symptoms, numbness, tingling, weakness, fever, persistent vomiting, or for any further concerns. 10/25/18 07:38 The patient's emergency department workup and current diagnosis were explained to the patient and or family. Follow-up instructions were provided. Medications if prescribed were discussed. Instructions for when to return to the emergency department including specific worrisome symptoms were discussed with the patient and/or family. - Vital Signs Vital signs: Temp Pulse Resp BP Pulse Ox 97.6 F 103 H 16 145/99 H 100 10/25/18 04:54 10/25/18 04:54 10/25/18 04:54 10/25/18 04:54 10/25/18 04:54 - Laboratory Result Diagrams: 10/25/18 05:30 10/25/18 05:30 Laboratory results interpreted by me: 10/25/18 10/25/18 10/25/18 05:30 05:30 05:43 WBC 15.0 H RBC 5.89 H MCV 79 L MCH 26.7 L Seg Neutrophils % 88.9 H Lymphocytes % 6.4 L Absolute Neutrophils 13.3 H Sodium 133.9 L Chloride 95 L BUN 24 H Glucose 468 H* POC Glucose Calcium 10.8 H Total Protein 8.6 H Urine Glucose (UA) >=500 H Urine Ketones TRACE H 10/25/18 07:26 WBC RBC MCV MCH Seg Neutrophils % Lymphocytes % Absolute Neutrophils Sodium Chloride BUN Glucose POC Glucose 352 H Calcium Total Protein Urine Glucose (UA) Urine Ketones Discharge - Discharge Clinical Impression: Hyperglycemia, Leg cramps Condition: Stable Disposition: HOME, SELF-CARE Instructions: Hyperglycemia ([facility]), Leg Cramps ([facility]) Additional Instructions: Take meds as prescribed. Monitor your blood sugar closely. Follow-up with your primary care doctor at the next available appointment. Follow-up sooner for worsening pain, fever, numbness, tingling, weakness, persistent vomiting, or for any further concerns. Prescriptions: Naproxen [Naprosyn] 500 mg PO BID #20 tablet Forms: Elevated Blood Pressure, Smoking Cessation Education Referrals: MITCHELL BURGOS PA-C [Primary Care Provider] - Follow up as needed
[2018-10-25] MEDS ORDERED: NORMAL SALINE 1000 ML 2,000 ML IV ONE (05:38)
[2018-10-25 05:39] LABS: ABSOLUTE MONOCYTES (AUTO) 0.7 10^3/uL (0.1-1.4); ABSOLUTE NEUT (AUTO) 13.3 10^3/uL (1.7-8.2); BASOPHILS % (AUTO) 0.2 % (0-2); EOSINOPHILS % (AUTO) 0.1 % (0-6); HEMATOCRIT 46.6 % (37.9-51.0); HEMOGLOBIN 15.7 g/dL (13.5-17.0); LYMPHOCYTES % (AUTO) 6.4 % (13-45); MEAN CORPUSCULAR HEMOGLOBIN 26.7 pg (27.0-33.4); MEAN CORPUSCULAR HGB CONC 33.7 g/dL (32.0-36.0); MEAN CORPUSCULAR VOLUME 79 fl (80-97); MONOCYTES % (AUTO) 4.4 % (3-13); PLATELET COUNT 217 10^3/uL (150-450); RED BLOOD COUNT 5.89 10^6/uL (4.35-5.55); RED CELL DISTRIBUTION WIDTH 13.3 % (11.5-14.0); SEGMENTED NEUTROPHILS % (AUTO) 88.9 % (42-78); TOTAL CELLS COUNTED % (AUTO) 100 %
[2018-10-25 05:54] LABS: ALANINE AMINOTRANSFERASE 64 U/L (21-72); ALBUMIN 4.7 g/dL (3.5-5.0); ALKALINE PHOSPHATASE 91 U/L (38-126); ANION GAP 13 (5-19); ASPARTATE AMINO TRANSFERASE 30 U/L (17-59); BILIRUBIN,DIRECT 0.3 mg/dL (0.0-0.4); BILIRUBIN,TOTAL 0.6 mg/dL (0.2-1.3); BLOOD UREA NITROGEN 24 mg/dL (7-20); CALCIUM 10.8 mg/dL (8.4-10.2); CARBON DIOXIDE 26 mmol/L (22-30); CHLORIDE 95 mmol/L (98-107); SODIUM 133.9 mmol/L (137-145); TOTAL PROTEIN 8.6 g/dL (6.3-8.2)
[2018-10-25 06:02] LABS: GLUCOSE 468 mg/dL (75-110)
[2018-10-25 06:04] LABS: APPEARANCE,URINE CLEAR; BILIRUBIN,URINE NEGATIVE (NEGATIVE); COLOR,URINE STRAW; GLUCOSE, URINE >=500 mg/dL (NEGATIVE); KETONES,URINE TRACE mg/dL (NEGATIVE); LEUKOCYTE ESTERASE,URINE NEGATIVE (NEGATIVE); NITRITE,URINE NEGATIVE (NEGATIVE); PROTEIN,URINE NEGATIVE (NEGATIVE); URINE SPECIFIC GRAVITY 1.027; UROBILINOGEN,URINE NEGATIVE mg/dL (<2.0)
[2018-10-25] MEDS ORDERED: INSULIN REG, HUMAN 100 UNIT/ML 3 ML VIAL (PYX) IV ONE (06:04)
[2018-10-25 06:21] LABS: VENOUS BLOOD BASE EXCESS 2.5 mmol/L; VENOUS BLOOD HCO3 27.9 mmol/L (20-32); VENOUS BLOOD PCO2 45.6 mmHg (35-63); VENOUS BLOOD PH 7.4 (7.30-7.42)
[2018-10-25 08:15] VITALS: BP 133/82
== END 2018-10-25 08:15 | disposition home or self-care (01) ==
LOC: ER 04:49
DX: R25.2 Cramp and spasm (principal); M79.605 Pain in left leg; E11.65 Type 2 diabetes mellitus with hyperglycemia; E78.00 Pure hypercholesterolemia, unspecified; I10 Essential (primary) hypertension; Z88.0 Allergy status to penicillin
CPT/HCPCS: 99284; 96360; 36415; 82962; 83735; 85025; 80053; 81001; 82803; J1815; J7030

== ENCOUNTER 2019-04-13 12:46 | Emergency (ER) | payer MEDICAID ==
[2019-04-13] MEDS ORDERED: ASPIRIN 81 MG TABLET, CHEWABLE PO ONE (13:35)
--- NOTE | 2019-04-13 13:37 | ER Document Report ---
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 Patient states that symptoms started about 5:00 this morning with the chest pain in the mid axillary area on the left side with associated nausea, denies diaphoresis, denies dyspnea on exertion or shortness of breath. Patient states he has a positive family cardiac history with a mother who had an MT at the age of 46. Exam: Well-appearing in no acute distress, lungs clear to auscultation in all cordova, regular cardiac rate and rhythm, abdominal exam is deferred in triage I have greeted and performed a rapid initial assessment of this patient. A comprehensive ED assessment and evaluation of the patient, analysis of test results and completion of medical decision making process will be conducted by an additional ED providers. TRAVEL OUTSIDE OF THE [place] IN LAST 30 DAYS: No - Related Data Allergies/Adverse Reactions: Penicillins Allergy (Verified 09/14/18 12:27) Past Medical History - Past Medical History Cardiac Medical History: Reports: Hx Hypercholesterolemia, Hx Hypertension Endocrine Medical History: Reports: Hx Diabetes Mellitus Type 2 - non insulin dependent Renal/ Medical History: Denies: Hx Peritoneal Dialysis GI Medical History: Reports: Hx Gastroesophageal Reflux Disease Musculoskeltal Medical History: Reports Hx Arthritis Psychiatric Medical History: Reports: Hx Bipolar Disorder Traumatic Medical History: Reports: Hx Pneumothorax - Spontaneous Past Surgical History: Reports: Other - Chest tube for spontaneous pneumothorax - Immunizations Immunizations up to date: Yes Hx Diphtheria, Pertussis, Tetanus Vaccination: Yes History of Influenza Vaccine for 04/2017 - 09/2017 Season: No Physical Exam - Vital signs Vitals: Temp Pulse Resp BP Pulse Ox 98 F 100 16 131/84 H 98 04/13/19 13:04 04/13/19 13:04 04/13/19 13:04 04/13/19 13:04 04/13/19 13:04 Course - Vital Signs Vital signs: Temp Pulse Resp BP Pulse Ox 98 F 100 16 131/84 H 98 04/13/19 13:04 04/13/19 13:04 04/13/19 13:04 04/13/19 13:04 04/13/19 13:04 Doctor's Discharge - Discharge Referrals: MITCHELL BURGOS PA-C [Primary Care Provider] - Follow up as needed
[2019-04-13 14:02] LABS: ABSOLUTE BASOPHILS # (AUTO) 0.1 10^3/uL (0.0-0.2); ABSOLUTE LYMPHOCYTES (AUTO) 2.4 10^3/uL (0.5-4.7); ABSOLUTE MONOCYTES (AUTO) 0.4 10^3/uL (0.1-1.4); ABSOLUTE NEUT (AUTO) 8.1 10^3/uL (1.7-8.2); BASOPHILS % (AUTO) 0.8 % (0-2); EOSINOPHILS % (AUTO) 0.3 % (0-6); HEMATOCRIT 48.2 % (37.9-51.0); HEMOGLOBIN 15.9 g/dL (13.5-17.0); LYMPHOCYTES % (AUTO) 21.9 % (13-45); MEAN CORPUSCULAR HEMOGLOBIN 25.8 pg (27.0-33.4); MEAN CORPUSCULAR HGB CONC 33.1 g/dL (32.0-36.0); MEAN CORPUSCULAR VOLUME 78 fl (80-97); PLATELET COUNT 248 10^3/uL (150-450); RED BLOOD COUNT 6.18 10^6/uL (4.35-5.55); RED CELL DISTRIBUTION WIDTH 13.1 % (11.5-14.0); TOTAL CELLS COUNTED % (AUTO) 100 %; WHITE BLOOD COUNT 11.2 10^3/uL (4.0-10.5)
[2019-04-13 14:04] LABS: APPEARANCE,URINE CLEAR; BILIRUBIN,URINE NEGATIVE (NEGATIVE); COLOR,URINE YELLOW; GLUCOSE, URINE >=500 mg/dL (NEGATIVE); KETONES,URINE NEGATIVE (NEGATIVE); LEUKOCYTE ESTERASE,URINE NEGATIVE (NEGATIVE); NITRITE,URINE NEGATIVE (NEGATIVE); PROTEIN,URINE NEGATIVE (NEGATIVE); URINE SPECIFIC GRAVITY 1.028; UROBILINOGEN,URINE NEGATIVE mg/dL (<2.0)
[2019-04-13 14:21] LABS: ALBUMIN 4.9 g/dL (3.5-5.0); ALKALINE PHOSPHATASE 79 U/L (38-126); ANION GAP 13 (5-19); ASPARTATE AMINO TRANSFERASE 46 U/L (17-59); BILIRUBIN,DIRECT 0.2 mg/dL (0.0-0.4); BILIRUBIN,TOTAL 0.6 mg/dL (0.2-1.3); BLOOD UREA NITROGEN 23 mg/dL (7-20); CALCIUM 10.1 mg/dL (8.4-10.2); CARBON DIOXIDE 27 mmol/L (22-30); CHLORIDE 98 mmol/L (98-107); GLUCOSE 261 mg/dL (75-110); POTASSIUM 4.7 mmol/L (3.6-5.0); TOTAL PROTEIN 8.6 g/dL (6.3-8.2)
--- NOTE | 2019-04-13 16:04 | RADIOLOGY REPORT (SQ) ---
EXAM DESCRIPTION: CHEST SINGLE VIEW COMPLETED DATE/TIME: 04/13/2019 3:53 pm REASON FOR STUDY: chest pain COMPARISON: 07/24/2017 EXAM PARAMETERS: NUMBER OF VIEWS: One view. TECHNIQUE: Single frontal radiographic view of the chest acquired. RADIATION DOSE: NA LIMITATIONS: None. FINDINGS: LUNGS AND PLEURA: No opacities, masses or pneumothorax. No pleural effusion. MEDIASTINUM AND HILAR STRUCTURES: No masses. Contour normal. HEART AND VASCULAR STRUCTURES: Heart normal in size. Normal vasculature. BONES: No acute findings. HARDWARE: None in the chest. OTHER: No other significant finding. IMPRESSION: NO ACUTE RADIOGRAPHIC FINDING IN THE CHEST. TECHNICAL DOCUMENTATION: JOB ID: [id number] [employer]- All Rights Reserved Reading location - IP/workstation name: [email or web address]
--- NOTE | 2019-04-13 16:16 | ER Document Report ---
ED General - General Chief Complaint: Nausea/Vomiting Stated Complaint: CHEST PAIN Time Seen by Provider: 04/13/19 13:29 Primary Care Provider: MITCHELL BURGOS PA-C [Primary Care Provider] - Follow up as needed TRAVEL OUTSIDE OF THE [place] IN LAST 30 DAYS: No - HPI Notes: Patient is a 48-year-old male who presents emergency department for evaluation of left-sided chest pain with associated nausea. He states that he woke at 515, and he believes this pain woke him. He states it feels as if he is being punched in that side. He does note that this is the site of a tube thoracostomy he received several years ago. He states that on occasion deep breaths made it worse, but primarily it was worsened by raising his left arm above his head. He states he felt nauseated and occasionally short of breath with it. He has had a stress test in the past, although he states is been "a few years ago." He states this is performed at [facility]. He denies any history of heart cath eterization. At the time of my evaluation, the patient states that his pain is significantly improved, he is able to move his arm, although it does still cause some pain. - Related Data Allergies/Adverse Reactions: Penicillins Allergy (Verified 09/14/18 12:27) Past Medical History - General Information source: Patient - Social History Smoking Status: Never Smoker Family History: Arthritis, CAD, Hyperlipidemia, Hypertension, Malignancy Patient has suicidal ideation: No Patient has homicidal ideation: No - Past Medical History Cardiac Medical History: Reports: Hx Hypercholesterolemia, Hx Hypertension Endocrine Medical History: Reports: Hx Diabetes Mellitus Type 2 - non insulin dependent Renal/ Medical History: Denies: Hx Peritoneal Dialysis GI Medical History: Reports: Hx Gastroesophageal Reflux Disease Musculoskeletal Medical History: Reports Hx Arthritis Psychiatric Medical History: Reports: Hx Bipolar Disorder Traumatic Medical History: Reports: Hx Pneumothorax - Spontaneous Past Surgical History: Reports: Other - Chest tube for spontaneous pneumothorax - Immunizations Immunizations up to date: Yes Hx Diphtheria, Pertussis, Tetanus Vaccination: Yes Review of Systems - Review of Systems Constitutional: No symptoms reported EENT: No symptoms reported Cardiovascular: See HPI Respiratory: See HPI Gastrointestinal: See HPI Genitourinary: No symptoms reported Musculoskeletal: See HPI Skin: No symptoms reported Neurological/Psychological: No symptoms reported Physical Exam - Vital signs Vitals: Temp Pulse Resp BP Pulse Ox 98 F 100 16 131/84 H 98 04/13/19 13:04 04/13/19 13:04 04/13/19 13:04 04/13/19 13:04 04/13/19 13:04 - Notes Notes: Vital signs reviewed, please refer to chart. Head is normocephalic, atraumatic. Pupils equal round, reactive to light. Neck is supple without meningismus. Heart is regular rate and rhythm. Lungs are clear to auscultation bilaterally. Semination of the chest reveals no obvious abnormalities. Patient is significantly tender over the 4th-5th intercostal space, mid axillary line, on the left, corresponding to likely site of tube thoracostomy. No overlying erythema, induration, edema, or subcutaneous emphysema is noted. Abdomen is soft, nontender, normoactive bowel sounds throughout. Extremities without cyanosis, clubbing. Posterior calves are nontender. Peripheral pulses are equal. Skin is warm and dry. Patient is awake, alert, neurological exam is nonfocal. Course - Re-evaluation Re-evalutation: 04/13/19 16:17 Patient presents emergency department for evaluation of left-sided chest pain. Laboratory investigations, EKG, imaging were obtained. No significant abnormality was noted in any of the studies. The patient's pain is reproducible. It was initially worsened by movement of the left arm. It does not seem anginal in nature. The patient, however, certainly does have significant risk factors for coronary artery disease. I strongly encouraged him to follow-up with primary care and seek out possible repeat stress testing. He voiced understanding to this and the patient was discharged. - Vital Signs Vital signs: Temp Pulse Resp BP Pulse Ox 98.1 F 94 16 127/79 H 98 04/13/19 16:44 04/13/19 16:44 04/13/19 16:44 04/13/19 16:44 04/13/19 13:04 - Laboratory Result Diagrams: 04/13/19 13:39 04/13/19 13:39 Laboratory results interpreted by me: 04/13/19 04/13/19 04/13/19 13:34 13:39 13:39 WBC 11.2 H RBC 6.18 H MCV 78 L MCH 25.8 L BUN 23 H Glucose 261 H Total Protein 8.6 H Urine Glucose (UA) >=500 H - Diagnostic Test Radiology reviewed: Reports reviewed Radiology results interpreted by me: 04/13/19 16:17 Chest X-Ray 04/13/19 13:35 IMPRESSION: NO ACUTE RADIOGRAPHIC FINDING IN THE CHEST. - EKG Interpretation by Me Additional EKG results interpreted by me: 04/13/19 16:17 Sinus mechanism with a rate of 92 bpm. Normal axis and intervals. Nonspecific T wave changes inferiorly, actually improved when compared to prior study of August 2017. Discharge - Discharge Clinical Impression: Chest wall pain Disposition: HOME, SELF-CARE Instructions: Anti-Inflammatory Medication ([facility]), Chest Wall Pain ([facility]) Additional Instructions: The pain you are experiencing is likely from your chest wall. You do, however, have significant risk factors for coronary artery disease. Be sure your blood pressure, cholesterol, and blood sugar are well controlled. Follow-up with your primary care provider. He may want to discuss further testing, including outpatient stress test, for evaluation of potential coronary artery disease. Take Naprosyn as directed for pain, with food. Return to the emergency department with worsening or new concerning symptoms of any sort. Prescriptions: Ondansetron HCl [Zofran 8 mg Tablet] 8 mg PO Q8HP PRN #30 tablet PRN Reason: Naproxen [Naprosyn] 500 mg PO BID PRN #30 tablet PRN Reason: muscle pain Referrals: MITCEHLL BURGOS PA-C [Primary Care Provider] - Follow up as needed
[2019-04-13 16:44] VITALS: BP 127/79
--- NOTE | 2019-04-13 22:29 | EKG REPORT ---
SEVERITY:- BORDERLINE ECG - SINUS RHYTHM BORDERLINE T ABNORMALITIES, INFERIOR LEADS : Confirmed by: Ellen Kelsey 13-Apr-2019 22:28:48
== END 2019-04-13 16:44 | disposition home or self-care (01) ==
LOC: ER 12:46
DX: R07.89 Other chest pain (principal); R11.2 Nausea with vomiting, unspecified; R06.02 Shortness of breath; I10 Essential (primary) hypertension; E11.9 Type 2 diabetes mellitus without complications
CPT/HCPCS: 36415; 71045; 80053; 81001; 84484; 85025; 93005; 93010; 99284

== ENCOUNTER 2019-06-07 10:26 | Emergency (ER) | payer MEDICAID ==
[2019-06-07 10:33] VITALS: BP 129/81
--- NOTE | 2019-06-07 10:40 | ER Document Report ---
HPI - HPI Patient complains to provider of: RIGHT ELBOW PAIN Time Seen by Provider: 06/07/19 10:31 Onset: Other - SAT Onset/Duration: Persistent Quality of pain: Achy Severity: Moderate Pain Level: 3 Context: 48-year-old male presents with right elbow pain. Reports it was icy on Saturday he fell and landed on his elbow. He reports since that time he has had elbow pain. Also complains that when he lifts his arm above his head his shoulder hurts in his right hand feels tight. Denies past medical history of injury to the arm. No other complaints such as fever vomiting diarrhea. Associated Symptoms: None Exacerbated by: Movement Relieved by: Denies Similar symptoms previously: No Recently seen / treated by doctor: No Past Medical History - General Information source: Patient - Social History Smoking Status: Former Smoker Cigarette use (# per day): No Chew tobacco use (# tins/day): No Frequency of alcohol use: None Drug Abuse: None Family History: Arthritis, CAD, Hyperlipidemia, Hypertension, Malignancy Patient has suicidal ideation: No Patient has homicidal ideation: No - Past Medical History Cardiac Medical History: Reports: Hx Hypercholesterolemia, Hx Hypertension Endocrine Medical History: Reports: Hx Diabetes Mellitus Type 2 - non insulin dependent Renal/ Medical History: Denies: Hx Peritoneal Dialysis GI Medical History: Reports: Hx Gastroesophageal Reflux Disease Musculoskeletal Medical History: Reports Hx Arthritis Psychiatric Medical History: Reports: Hx Bipolar Disorder Traumatic Medical History: Reports: Hx Pneumothorax - Spontaneous Past Surgical History: Reports: Other - Chest tube for spontaneous pneumothorax - Immunizations Immunizations up to date: Yes Hx Diphtheria, Pertussis, Tetanus Vaccination: Yes Vertical Provider Document - CONSTITUTIONAL Agree With Documented VS: Yes Exam Limitations: No Limitations General Appearance: WD/WN, No Apparent Distress - INFECTION CONTROL TRAVEL OUTSIDE OF THE [place] IN LAST 30 DAYS: No - HEENT HEENT: Atraumatic, Normocephalic - NECK Neck: Supple - RESPIRATORY Respiratory: Breath Sounds Normal, No Respiratory Distress - CARDIOVASCULAR Cardiovascular: Regular Rate - MUSCULOSKELETAL/EXTREMETIES Musculoskeletal/Extremeties: Tender - RIGHT ELBOW LATERALLY TTP, no obvious deformity no swelling no erythema no warmth good radial pulse cap refill less than 2 seconds. Patient complains of pain to right shoulder when lifting his arm up to his shoulder - NEURO Level of Consciousness: Awake, Alert, Appropriate - DERM Integumentary: Warm, Dry Adult Front & Back Diagram: 1 - c/o pain with touch, movement Course - Re-evaluation Re-evalutation: 06/07/19 10:39 48-year-old male presents with right elbow pain. Reports it was icy on Saturday he fell and landed on his elbow. He reports since that time he has had elbow pain. Also complains that when he lifts his arm above his head his shoulder hurts in his right hand feels tight. Denies past medical history of injury to the arm. Patient complains of point tenderness to his right elbow. X-ray ordered Dictation of this chart was performed using voice recognition software; therefore, there may be some unintended grammatical errors. 06/07/19 11:28 Elbow X-Ray 06/07/19 10:36 IMPRESSION: NEGATIVE STUDY OF THE RIGHT ELBOW. NO RADIOGRAPHIC EVIDENCE OF ACUTE INJURY. xray negative, pt informed, instructed on motrin, fu with pcp for referral to ortho as indicated - Vital Signs Vital signs: Temp Pulse Resp BP Pulse Ox 97.9 F 90 18 129/81 H 97 06/07/19 10:32 06/07/19 10:32 06/07/19 10:32 06/07/19 10:32 06/07/19 10:32 - Diagnostic Test Radiology reviewed: Image reviewed, Reports reviewed Discharge - Discharge Clinical Impression: Right elbow pain Condition: Stable Disposition: HOME, SELF-CARE Instructions: Use of Juzx-Aco-Qooctvg Ibuprofen ([facility]), Ice & Elevation ([facility]) Additional Instructions: *You have been evaluated for right elbow pain *Your elbow x-ray was negative for an acute fracture *Take ibuprofen as indicated for pain *Rest/Ice/Elevate your elbow *Follow up with your primary care provider within 1 week for recheck and referral to orthopedics as indicated. *Return to ED for worsening condition, changes, needs Referrals: MITCHELL BURGOS PA-C [Primary Care Provider] - Follow up in 1 week
--- NOTE | 2019-06-07 11:26 | RADIOLOGY REPORT (SQ) ---
EXAM DESCRIPTION: ELBOW RIGHT OVER 2 VIEWS COMPLETED DATE/TIME: 06/07/2019 10:53 am REASON FOR STUDY: PAIN FELL ON ELBOW COMPARISON: None. NUMBER OF VIEWS: Four views. TECHNIQUE: AP, lateral, and both oblique radiographic images acquired of the right elbow. LIMITATIONS: None. FINDINGS: MINERALIZATION: Normal. BONES: No acute fracture or dislocation. No worrisome bone lesions. JOINT: No effusion. SOFT TISSUES: No soft tissue swelling. No foreign body. OTHER: No other significant finding. IMPRESSION: NEGATIVE STUDY OF THE RIGHT ELBOW. NO RADIOGRAPHIC EVIDENCE OF ACUTE INJURY. TECHNICAL DOCUMENTATION: JOB ID: [id number] [employer]- All Rights Reserved Reading location - IP/workstation name: [email or web address]
== END 2019-06-07 11:45 | disposition home or self-care (01) ==
LOC: ER 10:26
DX: M25.521 Pain in right elbow (principal); W19.XXXA Unspecified fall, initial encounter; Z87.891 Personal history of nicotine dependence; I10 Essential (primary) hypertension; E11.9 Type 2 diabetes mellitus without complications
CPT/HCPCS: 99283

== ENCOUNTER 2019-06-21 01:51 | Emergency (ER) | payer MEDICAID ==
--- NOTE | 2019-06-21 05:00 | ER Document Report ---
ED Hand/Wrist Injury - General Chief Complaint: Wrist Pain Stated Complaint: RIGHT HAND INJURY Time Seen by Provider: 06/21/19 04:42 Primary Care Provider: MITCHELL BURGOS PA-C [Primary Care Provider] - Follow up as needed TRAVEL OUTSIDE OF THE [place] IN LAST 30 DAYS: No - HPI Notes: Hand dominant patient presents complaining of numbness and tingling and paresthesias in his right hand that have been present intermittently for the past couple weeks. 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 Patient denies recent injury to his right hand or wrist. Patient still states the change in sensation is most present and is right thumb. Patient says flexion at the wrist aggravates his symptoms extension at the wrist seems to slightly improve the symptoms. - Related Data Allergies/Adverse Reactions: Penicillins Allergy (Verified 06/07/19 10:36) Past Medical History - General Information source: Patient - Social History Smoking Status: Never Smoker Frequency of alcohol use: None Family History: Arthritis, CAD, Hyperlipidemia, Hypertension, Malignancy Patient has suicidal ideation: No Patient has homicidal ideation: No - Past Medical History Cardiac Medical History: Reports: Hx Hypercholesterolemia, Hx Hypertension Endocrine Medical History: Reports: Hx Diabetes Mellitus Type 2 - non insulin dependent Renal/ Medical History: Denies: Hx Peritoneal Dialysis GI Medical History: Reports: Hx Gastroesophageal Reflux Disease Musculoskeletal Medical History: Reports Hx Arthritis Psychiatric Medical History: Reports: Hx Bipolar Disorder Traumatic Medical History: Reports: Hx Pneumothorax - Spontaneous Past Surgical History: Reports: Other - Chest tube for spontaneous pneumothorax - Immunizations Immunizations up to date: Yes Hx Diphtheria, Pertussis, Tetanus Vaccination: Yes Review of Systems - Review of Systems Constitutional: No symptoms reported EENT: No symptoms reported Cardiovascular: No symptoms reported Respiratory: No symptoms reported Gastrointestinal: No symptoms reported Genitourinary: No symptoms reported Male Genitourinary: No symptoms reported Musculoskeletal: See HPI Skin: No symptoms reported Hematologic/Lymphatic: No symptoms reported Neurological/Psychological: No symptoms reported -: Yes All other systems reviewed and negative Physical Exam - Vital signs Vitals: Temp Pulse Resp BP Pulse Ox 97.7 F 91 18 145/80 H 96 06/21/19 01:56 06/21/19 01:56 06/21/19 01:56 06/21/19 01:56 12/01/19 01:56 - Notes Notes: PHYSICAL EXAMINATION: GENERAL: Well-appearing, well-nourished and in no acute distress. EXTREMITIES: Normal range of motion, no pitting or edema. No cyanosis. Decreased sensation is present to the patient's right thumb. Positive Tinel sign. Cap refill < 2 seconds in all digits. PSYCH: Normal mood, normal affect. SKIN: Warm, Dry, normal turgor, no rashes or lesions noted. Course - Vital Signs Vital signs: Temp Pulse Resp BP Pulse Ox 97.7 F 91 18 145/80 H 96 06/21/19 01:56 06/21/19 01:56 06/21/19 01:56 06/21/19 01:56 06/21/19 01:56 Discharge - Discharge Clinical Impression: Carpal tunnel syndrome of right wrist Condition: Good Disposition: HOME, SELF-CARE Instructions: Carpal Tunnel Syndrome ([facility]) Additional Instructions: Return to the Emergency Department without delay if any worse. HOME CARE INSTRUCTIONS & INFORMATION: Thank you for choosing us for your medical needs. We hope you're satisfied with the care you received. After you leave, you must properly care for your problem and, at the same time, observe its progress. Any condition can change. Some illnesses can change rapidly over hours or days. If your condition worsens, return to the Emergency Department or see your physician promptly. ABOUT YOUR X-RAYS AND EKG'S: If you had an EKG or X-rays taken, they have been read by the Emergency Physician. The X-rays and EKG's will also be read by a Radiologist or Glass Artist within 24 hours. If discrepancies are noted, you will be notified by telephone. Please be certain the ED has a correct telephone number & address where you can be reached. Also, realize that some fractures or abnormalities do not show up on initial X-rays. If your symptoms continue, see your physician. ABOUT YOUR LABORATORY TEST: If you had laboratory tests, the results have been reviewed by the Emergency Physician. Some test results (for example cultures) may not be available for several days. You will be contacted if any test result shows you need additional treatment. Please be certain the ED has a correct telephone number and address where you can be reached. ABOUT YOUR MEDICATIONS: You will receive instructions on how to take your medicine on the prescription label you receive. Additional information may be provided by the Pharmacy. If you have questions afterwards, call the ED for clarification or further instructions. Some prescribed medications may cause drowsiness. Do not perform tasks such as driving a car or operating machinery without consulting your Pharmacist. If you feel you need a refill of pain medication, your condition will need re-evaluation. Please do not call for a refill of any medication. ABOUT YOUR SIGNATURE: Signature of this document acknowledges to followin. Understanding that you received emergency treatment and that you may be released before al medical problems are known or treated. Please be certain the ED has a correct phone number & address where you can be reached. 2. Acknowledgement that you will arrange for follow-up care as recommended. 3. Authorization for the Emergency Physician to provide information to your follow-up Physician in order to maximize your care. AT ANY TIME, IF YOUR SYMPTOMS CHANGE SIGNIFICANTLY OR WORSEN OR YOU DEVELOP NEW SYMPTOMS, RETURN TO THE EMERGENCY DEPARTMENT IMMEDIATELY FOR RE-EVALUATION. OUR GOAL IS TO PROVIDE EXCELLENT MEDICAL CARE! WE HOPE THAT WE HAVE MET YOUR EXPECTATIONS DURING YOUR EMERGENCY DEPARTMENT VISIT AND THAT YOU FEEL YOU HAVE RECEIVED EXCELLENT CARE! Referrals: MITCHELL BURGOS PA-C [Primary Care Provider] - Follow up as needed VALENTIN JEAN DO [ACTIVE STAFF] - 06/22/19 (CALL TO ARRANGE FOLLOW UP APPOINTMENT)
[2019-06-21 05:19] VITALS: BP 127/72
== END 2019-06-21 05:19 | disposition home or self-care (01) ==
LOC: ER 01:51
DX: G56.01 Carpal tunnel syndrome, right upper limb (principal); I10 Essential (primary) hypertension; E11.9 Type 2 diabetes mellitus without complications; Z88.0 Allergy status to penicillin
CPT/HCPCS: 99283; L3908 ×2

== ENCOUNTER 2019-10-13 10:01 | Emergency (ER) | payer SELFPAY ==
--- NOTE | 2019-10-13 10:21 | ER Document Report ---
ED Medical Screen (RME) - General Chief Complaint: Chest Pain Stated Complaint: CHEST DISCOMFORT Time Seen by Provider: 10/13/19 10:14 Primary Care Provider: MITCHELL BURGOS PA-C [Primary Care Provider] - Follow up as needed Notes: Patient is 48-year-old male who presents to the emergency department with a chief complaint of chest discomfort. Patient states that pain started 3 days ago. States that it is on the left side of his chest. He states that when he leans to the left side pain gets worse and he tries to move to the right and then it hurts on the right side. Patient has history of a pneumothorax years ago and states it feels similar to that. Exam: Clear breath sounds throughout. I have greeted and performed a rapid initial assessment of this patient. A comprehensive ED assessment and evaluation of the patient, analysis of test results and completion of medical decision making process will be conducted by an additional ED providers. TRAVEL OUTSIDE OF THE [place] IN LAST 30 DAYS: No - Related Data Allergies/Adverse Reactions: Penicillins Allergy (Verified 06/07/19 10:36) Past Medical History - Social History Frequency of alcohol use: None Drug Abuse: None - Past Medical History Cardiac Medical History: Reports: Hx Hypercholesterolemia, Hx Hypertension Endocrine Medical History: Reports: Hx Diabetes Mellitus Type 2 - non insulin dependent Renal/ Medical History: Denies: Hx Peritoneal Dialysis GI Medical History: Reports: Hx Gastroesophageal Reflux Disease Musculoskeltal Medical History: Reports Hx Arthritis Psychiatric Medical History: Reports: Hx Bipolar Disorder Traumatic Medical History: Reports: Hx Pneumothorax - Spontaneous Past Surgical History: Reports: Other - Chest tube for spontaneous pneumothorax - Immunizations Immunizations up to date: Yes Hx Diphtheria, Pertussis, Tetanus Vaccination: Yes Physical Exam - Vital signs Vitals: Temp Pulse Resp BP Pulse Ox 97.9 F 99 20 138/98 H 97 10/13/19 10:10 10/13/19 10:10 10/13/19 10:10 10/13/19 10:10 10/13/19 10:10 Course - Vital Signs Vital signs: Temp Pulse Resp BP Pulse Ox 97.9 F 99 20 138/98 H 97 10/13/19 10:10 10/13/19 10:10 10/13/19 10:10 10/13/19 10:10 10/13/19 10:10 Doctor's Discharge - Discharge Referrals: MITCHELL BURGOS PA-C [Primary Care Provider] - Follow up as needed
[2019-10-13 10:43] LABS: ABSOLUTE LYMPHOCYTES (AUTO) 2.3 10^3/uL (0.5-4.7); ABSOLUTE MONOCYTES (AUTO) 0.4 10^3/uL (0.1-1.4); ABSOLUTE NEUT (AUTO) 4.7 10^3/uL (1.7-8.2); BASOPHILS % (AUTO) 0.5 % (0-2); EOSINOPHILS % (AUTO) 0.5 % (0-6); HEMATOCRIT 48.8 % (37.9-51.0); HEMOGLOBIN 16.4 g/dL (13.5-17.0); LYMPHOCYTES % (AUTO) 30.5 % (13-45); MEAN CORPUSCULAR HEMOGLOBIN 26.4 pg (27.0-33.4); MEAN CORPUSCULAR HGB CONC 33.6 g/dL (32.0-36.0); MEAN CORPUSCULAR VOLUME 79 fl (80-97); MONOCYTES % (AUTO) 5.6 % (3-13); PLATELET COUNT 238 10^3/uL (150-450); RED BLOOD COUNT 6.21 10^6/uL (4.35-5.55); RED CELL DISTRIBUTION WIDTH 12.9 % (11.5-14.0); SEGMENTED NEUTROPHILS % (AUTO) 62.9 % (42-78); TOTAL CELLS COUNTED % (AUTO) 100 %; WHITE BLOOD COUNT 7.4 10^3/uL (4.0-10.5)
--- NOTE | 2019-10-13 10:51 | RADIOLOGY REPORT (SQ) ---
EXAM DESCRIPTION: CHEST SINGLE VIEW COMPLETED DATE/TIME: 10/13/2019 10:31 am REASON FOR STUDY: chest discomfort COMPARISON: None. NUMBER OF VIEWS: One view. TECHNIQUE: Single frontal radiographic view of the chest acquired. LIMITATIONS: None. FINDINGS: LUNGS AND PLEURA: No opacities, masses or pneumothorax. No pleural effusion. MEDIASTINUM AND HILAR STRUCTURES: No masses. Contour normal. HEART AND VASCULAR STRUCTURES: Heart normal in size. Normal vasculature. BONES: No acute findings. HARDWARE: None in the chest. OTHER: No other significant finding. IMPRESSION: NO SIGNIFICANT RADIOGRAPHIC FINDING IN THE CHEST. TECHNICAL DOCUMENTATION: JOB ID: [id number] 2010 [employer]- All Rights Reserved Reading location - IP/workstation name: [email or web address]
[2019-10-13 11:12] LABS: ALBUMIN 4.9 g/dL (3.5-5.0); ALKALINE PHOSPHATASE 101 U/L (38-126); ANION GAP 11 (5-19); ASPARTATE AMINO TRANSFERASE 60 U/L (17-59); BILIRUBIN,DIRECT 0.4 mg/dL (0.0-0.4); BILIRUBIN,TOTAL 0.7 mg/dL (0.2-1.3); BLOOD UREA NITROGEN 18 mg/dL (7-20); CALCIUM 10.3 mg/dL (8.4-10.2); CARBON DIOXIDE 30 mmol/L (22-30); CHLORIDE 93 mmol/L (98-107); TOTAL PROTEIN 8.9 g/dL (6.3-8.2)
[2019-10-13 11:26] LABS: GLUCOSE 505 mg/dL (75-110)
[2019-10-13] MEDS ORDERED: NORMAL SALINE 1000 ML 1,000 ML IV ONE (11:53)
[2019-10-13] MEDS ORDERED: NORMAL SALINE 100 ML with INSULIN REGULAR, HUMAN 100 UNIT IV PRN ×2 (11:53)
--- NOTE | 2019-10-13 12:19 | ER Document Report ---
ED General - General Chief Complaint: Chest Pain Stated Complaint: CHEST DISCOMFORT Time Seen by Provider: 10/13/19 10:14 Primary Care Provider: MITCHELL BURGOS PA-C [Primary Care Provider] - Follow up as needed TRAVEL OUTSIDE OF THE [place] IN LAST 30 DAYS: No - HPI Notes: Chief complaint: Chest pain 48-year-old male with type 2 diabetes currently noncompliant with all of his becky betes medications for the last 3 weeks. During the same period of time he has had recurrent sharp pains over anterior chest area bilaterally aggravated by taking a deep breath or pressing on the area or turning to his left side in bed. Patient says he had a spontaneous pneumothorax some years ago and the pain is somewhat reminiscent of that. He describes this as sharp and fleeting lasting for few seconds at a time. Patient was previously taking Januvia, glipizide and metformin. He apparently was receiving Medicaid benefits. 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 Unfortunately this eliminated his eligibility for Medicaid. He found that his out of cost pocket for his diabetes medicines would be in excess of $600 per month. For this reason he has been off the medication. Patient denies vomiting, fever, chills or dyspnea. He denies diaphoresis. He is a non-smoker. Family history is positive for CAD. In addition to type 2 diabetes he has hypertension and hyperlipidemia. HEART Score: HISTORY 0 ECG 0 AGE 3 RISK FACTORS 2 TROPONIN 0 TOTAL: 3 If HEART score is = 3 AND both tronponin measurments are normal, the 30 day risk of a major adverse cardiac event (all-cause mortality, myocardia infarction or need for coronary revscularization) is < 1% (Sensitivity 100%, NPV 100%). - Related Data Allergies/Adverse Reactions: Penicillins Allergy (Verified 10/13/19 11:05) Past Medical History - General Information source: Patient, [facility] Records - Social History Smoking Status: Former Smoker Frequency of alcohol use: None Drug Abuse: None Family History: Arthritis, CAD, Hyperlipidemia, Hypertension, Malignancy Patient has suicidal ideation: No Patient has homicidal ideation: No - Past Medical History Cardiac Medical History: Reports: Hx Hypercholesterolemia, Hx Hypertension Endocrine Medical History: Reports: Hx Diabetes Mellitus Type 2 - non insulin dependent Renal/ Medical History: Denies: Hx Peritoneal Dialysis GI Medical History: Reports: Hx Gastroesophageal Reflux Disease Musculoskeletal Medical History: Reports Hx Arthritis Psychiatric Medical History: Reports: Hx Bipolar Disorder Traumatic Medical History: Reports: Hx Pneumothorax - Spontaneous Past Surgical History: Reports: Other - Chest tube for spontaneous pneumothorax - Immunizations Immunizations up to date: Yes Hx Diphtheria, Pertussis, Tetanus Vaccination: Yes Review of Systems - Review of Systems Notes: Constitutional: Negative for fever. HENT: Negative for sore throat. Eyes: Negative for visual changes. Cardiovascular: As per HPI. Respiratory: Negative for shortness of breath. Gastrointestinal: Negative for abdominal pain, vomiting or diarrhea. Genitourinary: Negative for dysuria. Musculoskeletal: Negative for back pain. Skin: Negative for rash. Neurological: Negative for headaches, weakness or numbness. 10 point ROS negative except as marked above and in HPI. Physical Exam - Vital signs Vitals: Temp Pulse Resp BP Pulse Ox 97.9 F 99 20 138/98 H 97 10/13/19 10:10 10/13/19 10:10 10/13/19 10:10 10/13/19 10:10 10/13/19 10:10 - Notes Notes: GENERAL: Well-developed well-nourished appearing in no acute distress. SKIN: Good turgor no rashes. HEAD: Normocephalic atraumatic. EYES: PERRLA. EOMI. Conjunctivae and sclerae clear. EARS: CANALS AND TMS CLEAR. NOSE: CLEAR. MOUTH: Moist mucosa. Good dentition. No stridor or edema. No drooling. NECK: Supple. No masses or thyromegaly. No adenopathy. Carotids 2+ without br uits. No JVD. BACK: Symmetrical without tenderness. CHEST: Generalized tenderness anterior chest which EXACTLY reproduces his discomfort respirations unlabored. Breath sounds clear and symmetrical. HEART: Regular rhythm. No murmur gallop or rub. ABDOMEN: Soft nontender without masses, organomegaly or rebound. Bowel sounds normally active. No bruits. GENITALIA: Deferred. EXTREMITIES: No edema. No calf tenderness. Cap refill less than 1.5 seconds. Dorsalis pedis and posterior tibial pulses 3+ and symmetrical. NEUROLOGICAL: GCS 15. Alert and oriented x3. Normal gait. Fluent speech. Cranial nerves II through XII intact. Sensorimotor and cerebellar normal. Normal tone. PSYCHIATRIC: Appropriate affect. Course - Re-evaluation Re-evalutation: 10/13/19 15:44 2 negative troponins 4 hours apart here. EKG is normal. Heart score is 3. Discomfort is completely reproducible with palpation over anterior chest. Patient's blood sugar was elevated over 500 but he is not in DKA. He is clearly been noncompliant with his oral medications for at least 2 weeks and this interestingly is also the duration of his chest symptoms. I gave the patient IV fluids here and brought his sugar down to below 250. He feels much better. I will have reviewed case with Dr. Bosch from cardiology at [address] Bosch will arrange an outpatient treadmill within the next 72 hours. In the meantime discharge planning has has been consulted and has made arrangements for this gentleman to get a temporary supply of his diabetes medications. He will follow-up with his primary care provider. Findings and recommendations discussed with patient and he is comfortable with our current plan. 10/13/19 15:52 - Vital Signs Vital signs: Temp Pulse Resp BP Pulse Ox 97.9 F 99 12 142/96 H 96 10/13/19 10:10 10/13/19 10:10 10/13/19 15:01 10/13/19 15:01 10/13/19 15:01 - Laboratory Result Diagrams: 10/13/19 10:26 10/13/19 10:26 Laboratory results interpreted by me: 10/13/19 10/13/19 10/13/19 10:26 10:26 12:15 RBC 6.21 H MCV 79 L MCH 26.4 L Sodium 133.9 L Chloride 93 L Glucose 505 H* POC Glucose Calcium 10.3 H AST 60 H ALT 124 H Total Protein 8.9 H Urine Glucose (UA) >=500 H Urine Ketones TRACE H 10/13/19 10/13/19 12:22 13:28 RBC MCV MCH Sodium Chloride Glucose POC Glucose 416 H* 367 H Calcium AST ALT Total Protein Urine Glucose (UA) Urine Ketones Discharge - Discharge Clinical Impression: Diabetes mellitus type 2 uncontrolled, Noncompliance Chest pain Qualifiers: Chest pain type: unspecified Qualified Code(s): R07.9 - Chest pain, unspecified Condition: Stable Disposition: HOME, SELF-CARE Additional Instructions: Restart your previously prescribed medications for treatment of diabetes as previously instructed. Schedule follow-up appointment with referral bog cutter as discussed. Tylenol as needed. Increase oral fluids. Return here as needed for new or worsening symptoms: Pain that is worsening or unimproved Uncontrolled vomiting High fever or shaking chills Overall worsening Referrals: MITCHELL BURGOS PA-C [Primary Care Provider] - Follow up as needed
[2019-10-13 12:36] LABS: APPEARANCE,URINE CLEAR; BILIRUBIN,URINE NEGATIVE (NEGATIVE); COLOR,URINE YELLOW; GLUCOSE, URINE >=500 mg/dL (NEGATIVE); KETONES,URINE TRACE mg/dL (NEGATIVE); LEUKOCYTE ESTERASE,URINE NEGATIVE (NEGATIVE); NITRITE,URINE NEGATIVE (NEGATIVE); PROTEIN,URINE NEGATIVE (NEGATIVE); URINE SPECIFIC GRAVITY 1.033; UROBILINOGEN,URINE NEGATIVE mg/dL (<2.0)
--- NOTE | 2019-10-13 12:37 | EKG REPORT ---
SEVERITY:- BORDERLINE ECG - SINUS RHYTHM BORDERLINE R WAVE PROGRESSION, ANTERIOR LEADS : Confirmed by: Sushil Polanco MD 13-Oct-2019 12:36:35
[2019-10-13] MEDS ORDERED: NORMAL SALINE 1000 ML 1,000 ML IV PRN (13:35)
[2019-10-13 16:08] VITALS: BP 157/79
== END 2019-10-13 16:08 | disposition home or self-care (01) ==
LOC: ER 10:01
DX: R07.9 Chest pain, unspecified (principal); E11.9 Type 2 diabetes mellitus without complications; Z91.14 Patient's other noncompliance with medication regimen; Z79.899 Other long term (current) drug therapy; Z87.891 Personal history of nicotine dependence; I10 Essential (primary) hypertension; Z91.19 Patient's noncompliance with other medical treatment and regimen
CPT/HCPCS: 93005; 99285; 96360; 96361; 36415; 82962; 85025; 80053; 81001; 84484; 85379; 71045; 93010; J7030

== ENCOUNTER 2020-02-22 11:52 | Emergency (ER) | payer SELFPAY ==
[2020-02-22] MEDS ORDERED: NORMAL SALINE 1000 ML 1,000 ML IV ONE ×2 (12:59→14:36)
--- NOTE | 2020-02-22 13:01 | ER Document Report ---
ED Medical Screen (RME) - General Chief Complaint: High Blood Sugar Stated Complaint: BLOOD SUGAR ISSUE/MED REFILL Time Seen by Provider: 02/22/20 12:56 Primary Care Provider: MITCHELL BURGOS PA-C [Primary Care Provider] - Follow up as needed Notes: HPI: 49-year-old male with history of hypertension type 2 diabetes has been out of his medications for both for 1 month due to insurance issues. Reports increased shaking in the extremities increased fatigue, significant urinary frequency in the last week. No chest pain no shortness of breath no fever. PHYSICAL EXAMINATION: Mild tachycardia is noted. Lung sounds are clear to auscultation. No abdominal pain on palpation I have greeted and performed a rapid initial assessment of this patient. A comprehensive ED assessment and evaluation of the patient, analysis of test results and completion of medical decision making process will be conducted by an additional ED providers. TRAVEL OUTSIDE OF THE [place] IN LAST 30 DAYS: No - Related Data Allergies/Adverse Reactions: Penicillins Allergy (Verified 02/22/20 12:52) Home Medications: januvia, metformin, blood pressure medication Past Medical History - Social History Chew tobacco use (# tins/day): No Frequency of alcohol use: None Drug Abuse: None - Past Medical History Cardiac Medical History: Reports: Hx Hypercholesterolemia, Hx Hypertension Endocrine Medical History: Reports: Hx Diabetes Mellitus Type 2 - non insulin dependent Renal/ Medical History: Denies: Hx Peritoneal Dialysis GI Medical History: Reports: Hx Gastroesophageal Reflux Disease Musculoskeltal Medical History: Reports Hx Arthritis Psychiatric Medical History: Reports: Hx Bipolar Disorder Traumatic Medical History: Reports: Hx Pneumothorax - Spontaneous Past Surgical History: Reports: Other - Chest tube for spontaneous pneumothorax - Immunizations Immunizations up to date: Yes Hx Diphtheria, Pertussis, Tetanus Vaccination: Yes Physical Exam - Vital signs Vitals: Temp Pulse Resp BP Pulse Ox 98.4 F 101 H 17 139/94 H 96 02/22/20 12:12 02/22/20 12:12 02/22/20 12:12 02/22/20 12:12 02/22/20 12:12 Course - Vital Signs Vital signs: Temp Pulse Resp BP Pulse Ox 98.4 F 101 H 17 139/94 H 96 02/22/20 12:12 02/22/20 12:12 02/22/20 12:12 02/22/20 12:12 02/22/20 12:12 Doctor's Discharge - Discharge Referrals: MITCHELL BURGOS PA-C [Primary Care Provider] - Follow up as needed
[2020-02-22 13:43] LABS: VENOUS BLOOD BASE EXCESS -0.5 mmol/L; VENOUS BLOOD HCO3 25.1 mmol/L (20-32); VENOUS BLOOD PCO2 44.6 mmHg (35-63); VENOUS BLOOD PH 7.37 (7.30-7.42)
[2020-02-22 13:48] LABS: ABSOLUTE LYMPHOCYTES (AUTO) 2.1 10^3/uL (0.5-4.7); ABSOLUTE MONOCYTES (AUTO) 0.4 10^3/uL (0.1-1.4); BASOPHILS % (AUTO) 0.6 % (0-2); EOSINOPHILS % (AUTO) 0.4 % (0-6); HEMATOCRIT 48.3 % (37.9-51.0); HEMOGLOBIN 16.3 g/dL (13.5-17.0); LYMPHOCYTES % (AUTO) 28.1 % (13-45); MEAN CORPUSCULAR HEMOGLOBIN 26.8 pg (27.0-33.4); MEAN CORPUSCULAR HGB CONC 33.8 g/dL (32.0-36.0); MEAN CORPUSCULAR VOLUME 79 fl (80-97); MONOCYTES % (AUTO) 4.9 % (3-13); PLATELET COUNT 229 10^3/uL (150-450); RED CELL DISTRIBUTION WIDTH 13.2 % (11.5-14.0); TOTAL CELLS COUNTED % (AUTO) 100 %; WHITE BLOOD COUNT 7.6 10^3/uL (4.0-10.5)
[2020-02-22 13:50] LABS: APPEARANCE,URINE CLEAR; BILIRUBIN,URINE NEGATIVE (NEGATIVE); COLOR,URINE COLORLESS; GLUCOSE, URINE >=500 mg/dL (NEGATIVE); KETONES,URINE TRACE mg/dL (NEGATIVE); LEUKOCYTE ESTERASE,URINE NEGATIVE (NEGATIVE); NITRITE,URINE NEGATIVE (NEGATIVE); PROTEIN,URINE NEGATIVE (NEGATIVE); URINE SPECIFIC GRAVITY 1.028; UROBILINOGEN,URINE NEGATIVE mg/dL (<2.0)
[2020-02-22 14:04] LABS: ALBUMIN 4.8 g/dL (3.5-5.0); ALKALINE PHOSPHATASE 108 U/L (38-126); ANION GAP 12 (5-19); ASPARTATE AMINO TRANSFERASE 42 U/L (17-59); BILIRUBIN,DIRECT 0.1 mg/dL (0.0-0.4); BILIRUBIN,TOTAL 0.6 mg/dL (0.2-1.3); BLOOD UREA NITROGEN 17 mg/dL (7-20); CALCIUM 10.6 mg/dL (8.4-10.2); CARBON DIOXIDE 25 mmol/L (22-30); CHLORIDE 94 mmol/L (98-107); POTASSIUM 4.9 mmol/L (3.6-5.0); TOTAL PROTEIN 8.5 g/dL (6.3-8.2)
[2020-02-22 14:19] LABS: GLUCOSE 684 mg/dL (75-110)
[2020-02-22] MEDS ORDERED: INSULIN REG, HUMAN 100 UNIT/ML 3 ML VIAL (PYX) SUBCUT ONE (14:25)
--- NOTE | 2020-02-22 14:36 | ER Document Report ---
ED Blood Sugar Problem - General Chief Complaint: High Blood Sugar Stated Complaint: BLOOD SUGAR ISSUE/MED REFILL Time Seen by Provider: 02/22/20 12:56 Primary Care Provider: [facility] [Provider Group] - Follow up tomorrow MITCHELL BURGOS PA-C [Primary Care Provider] - Follow up as needed Mode of Arrival: Ambulatory Information source: Patient Notes: Patient presents stating that he has been off of all of his medications for blood pressure as well as diabetes. Patient states he has not had his medicine for the past 3 weeks. Patient complains of feeling tired and increased urinary frequency and thirst. Patient states that he lost his Medicaid and has not been able to afford his medication. Patient states he lost his Medicaid because he makes too much money now. TRAVEL OUTSIDE OF THE [place] IN LAST 30 DAYS: No - HPI Onset: Other - 3 weeks Onset/Duration: Worse Quality of pain: Achy Pain Level: 1 Associated symptoms: Dry mucous membranes, Increased thirst, Frequent urination, Weakness. 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 Family History: Arthritis, CAD, Hyperlipidemia, Hypertension, Malignancy Patient has homicidal ideation: No - Past Medical History Cardiac Medical History: Reports: Hx Hypercholesterolemia, Hx Hypertension Endocrine Medical History: Reports: Hx Diabetes Mellitus Type 2 - non insulin dependent Renal/ Medical History: Denies: Hx Peritoneal Dialysis GI Medical History: Reports: Hx Gastroesophageal Reflux Disease Musculoskeletal Medical History: Reports Hx Arthritis Psychiatric Medical History: Reports: Hx Bipolar Disorder Traumatic Medical History: Reports: Hx Pneumothorax - Spontaneous Past Surgical History: Reports: Other - Chest tube for spontaneous pneumothorax - Immunizations Immunizations up to date: Yes Hx Diphtheria, Pertussis, Tetanus Vaccination: Yes Review of Systems - Review of Systems Constitutional: Malaise, Weakness. denies: Fever EENT: No symptoms reported Cardiovascular: No symptoms reported. denies: Chest pain Respiratory: No symptoms reported. denies: Cough Gastrointestinal: Other - Increased thirst. denies: Abdominal pain, Nausea Genitourinary: Frequency. denies: Dysuria Male Genitourinary: No symptoms reported Musculoskeletal: No symptoms reported Skin: No symptoms reported Hematologic/Lymphatic: No symptoms reported Neurological/Psychological: No symptoms reported. denies: Headaches Physical Exam - Vital signs Vitals: Temp Pulse Resp BP Pulse Ox 98.4 F 101 H 17 139/94 H 96 02/22/20 12:12 02/22/20 12:12 02/22/20 12:12 02/22/20 12:12 02/22/20 12:12 - General General appearance: Appears well, Alert In distress: None - HEENT Head: Normocephalic, Atraumatic Eyes: Normal Conjunctiva: Normal Nasal: Normal Mouth/Lips: Normal Mucous membranes: Normal Neck: Normal, Supple. No: Lymphadenopathy - Respiratory Respiratory status: No respiratory distress Chest status: Nontender Breath sounds: Normal. No: Rales, Rhonchi, Stridor, Wheezing Chest palpation: Normal - Cardiovascular Rhythm: Regular Heart sounds: S1 appreciated, S2 appreciated - Abdominal Inspection: Normal Distension: No distension Bowel sounds: Normal Tenderness: Nontender Organomegaly: No organomegaly - Back Back: CVA tenderness - Extremities General upper extremity: Normal inspection, Nontender, Normal strength General lower extremity: Normal inspection, Nontender, Normal strength - Neurological Neuro grossly intact: Yes Cognition: Normal [place] Coma Scale Eye Opening: Spontaneous [place] Coma Scale Verbal: Oriented [place] Coma Scale Motor: Obeys Commands [place] Coma Scale Total: 15 - Psychological Associated symptoms: Normal affect, Normal mood - Skin Skin Temperature: Warm Skin Moisture: Dry Skin Color: Normal Course - Re-evaluation Re-evalutation: 02/22/20 16:39 RN states that patient told her that he knows he is going to be getting prescriptions at discharge but he does not have any money to fill the prescriptions. Consult placed with discharge planning Parviz Mireles who states that she will be in contact with the patient sometime tomorrow and will help get him established with the [facility] and the [facility] program. 02/22/20 17:38 Patient blood sugar trending down at this time. Patient not acidotic, no concern for DKA. Patient is pending consultation with discharge planning to assist with helping to get his medications. Patient encouraged to maintain a diabetic diet. Will give patient a refill of his medications at this time. Good return precautions discussed with patient. - Vital Signs Vital signs: Temp Pulse Resp BP Pulse Ox 98.4 F 101 H 17 139/94 H 96 02/22/20 12:12 02/22/20 12:12 02/22/20 12:12 02/22/20 12:12 02/22/20 12:12 - Laboratory Result Diagrams: 02/22/20 13:20 02/22/20 13:20 Laboratory results interpreted by me: 02/22/20 02/22/20 02/22/20 13:00 13:20 13:20 RBC 6.10 H MCV 79 L MCH 26.8 L Sodium 131.2 L Chloride 94 L Glucose 684 H* POC Glucose Calcium 10.6 H ALT 60 H Total Protein 8.5 H Urine Glucose (UA) >=500 H Urine Ketones TRACE H 02/22/20 02/22/20 16:29 17:21 RBC MCV MCH Sodium Chloride Glucose POC Glucose 470 H* 331 H Calcium ALT Total Protein Urine Glucose (UA) Urine Ketones 02/22/20 18:00 Labs- All tests 24 hr 02/22/20 02/22/20 02/22/20 13:00 13:20 13:20 WBC 7.6 RBC 6.10 H Hgb 16.3 Hct 48.3 MCV 79 L MCH 26.8 L MCHC 33.8 RDW 13.2 Plt Count 229 Lymph % (Auto) 28.1 Ritchie % (Auto) 4.9 Eos % (Auto) 0.4 Baso % (Auto) 0.6 Absolute Neuts (auto) 5.0 Absolute Lymphs (auto) 2.1 Absolute Monos (auto) 0.4 Absolute Eos (auto) 0.0 Absolute Basos (auto) 0.0 Seg Neutrophils % 66.0 VBG pH VBG pCO2 VBG HCO3 VBG Base Excess Sodium 131.2 L Potassium 4.9 Chloride 94 L Carbon Dioxide 25 Anion Gap 12 BUN 17 Creatinine 0.99 Est GFR ( Amer) > 60 Est GFR (MDRD) Non-Af > 60 Glucose 684 H* POC Glucose Calcium 10.6 H Magnesium 2.2 Total Bilirubin 0.6 Direct Bilirubin 0.1 Neonat Total Bilirubin Not Reportable Neonat Direct Bilirubin Not Reportable Neonat Indirect Bili Not Reportable AST 42 ALT 60 H Alkaline Phosphatase 108 Troponin I Total Protein 8.5 H Albumin 4.8 TSH Urine Color COLORLESS Urine Appearance CLEAR Urine pH 7.0 Ur Specific [place] 1.028 Urine Protein NEGATIVE Urine Glucose (UA) >=500 H Urine Ketones TRACE H Urine Blood NEGATIVE Urine Nitrite NEGATIVE Urine Bilirubin NEGATIVE Urine Urobilinogen NEGATIVE Ur Leukocyte Esterase NEGATIVE Urine Ascorbic Acid NEGATIVE 02/22/20 02/22/20 02/22/20 13:20 13:20 13:20 WBC RBC Hgb Hct MCV MCH MCHC RDW Plt Count Lymph % (Auto) Ritchie % (Auto) Eos % (Auto) Baso % (Auto) Absolute Neuts (auto) Absolute Lymphs (auto) Absolute Monos (auto) Absolute Eos (auto) Absolute Basos (auto) Seg Neutrophils % VBG pH 7.37 VBG pCO2 44.6 VBG HCO3 25.1 VBG Base Excess -0.5 Sodium Potassium Chloride Carbon Dioxide Anion Gap BUN Creatinine Est GFR ( Amer) Est GFR (MDRD) Non-Af Glucose POC Glucose Calcium Magnesium Total Bilirubin Direct Bilirubin Neonat Total Bilirubin Neonat Direct Bilirubin Neonat Indirect Bili AST ALT Alkaline Phosphatase Troponin I < 0.012 Total Protein Albumin TSH 0.52 Urine Color Urine Appearance Urine pH Ur Specific [place] Urine Protein Urine Glucose (UA) Urine Ketones Urine Blood Urine Nitrite Urine Bilirubin Urine Urobilinogen Ur Leukocyte Esterase Urine Ascorbic Acid 02/22/20 02/22/20 16:29 17:21 WBC RBC Hgb Hct MCV MCH MCHC RDW Plt Count Lymph % (Auto) Ritchie % (Auto) Eos % (Auto) Baso % (Auto) Absolute Neuts (auto) Absolute Lymphs (auto) Absolute Monos (auto) Absolute Eos (auto) Absolute Basos (auto) Seg Neutrophils % VBG pH VBG pCO2 VBG HCO3 VBG Base Excess Sodium Potassium Chloride Carbon Dioxide Anion Gap BUN Creatinine Est GFR ( Amer) Est GFR (MDRD) Non-Af Glucose POC Glucose 470 H* 331 H Calcium Magnesium Total Bilirubin Direct Bilirubin Neonat Total Bilirubin Neonat Direct Bilirubin Neonat Indirect Bili AST ALT Alkaline Phosphatase Troponin I Total Protein Albumin TSH Urine Color Urine Appearance Urine pH Ur Specific [place] Urine Protein Urine Glucose (UA) Urine Ketones Urine Blood Urine Nitrite Urine Bilirubin Urine Urobilinogen Ur Leukocyte Esterase Urine Ascorbic Acid Discharge - Discharge Clinical Impression: Noncompliance with medication regimen, Medication refill Diabetes Qualifiers: Diabetes mellitus type: type 2 Diabetes mellitus senior living insulin use: without intermediate designer use Diabetes mellitus complication status: with hyperglycemia Qualified Code(s): E11.65 - Type 2 diabetes mellitus with hyperglycemia Condition: Stable Disposition: HOME, SELF-CARE Instructions: Diabetes ([facility]), Glucophage ([facility]) Additional Instructions: Return immediately for any new or worsening symptoms Followup with your primary care provider, call tomorrow to make a followup appointment Parviz Aline with discharge planning will be in touch with you tomorrow, her office number is [phone] Prescriptions: Glipizide [Glipizide Xl] 5 mg PO DAILY #30 tab.er.[id number] Metformin HCl 1,000 mg PO BID #60 tablet Lisinopril [Prinivil] 10 mg PO DAILY #30 tablet Referrals: MITCHELL BURGOS PA-C [Primary Care Provider] - Follow up as needed [facility] [Provider Group] - Follow up tomorrow
[2020-02-22] MEDS ORDERED: METFORMIN HCL 500 MG TABLET PO ONE (16:49)
--- NOTE | 2020-02-22 17:14 | EKG REPORT ---
SEVERITY:- BORDERLINE ECG - SINUS RHYTHM BORDERLINE R WAVE PROGRESSION, ANTERIOR LEADS : Confirmed by: Sushil Polanco MD 22-Feb-2020 17:14:04
[2020-02-22 18:12] VITALS: BP 147/95
== END 2020-02-22 18:12 | disposition home or self-care (01) ==
LOC: ER 11:52
DX: E11.65 Type 2 diabetes mellitus with hyperglycemia (principal); R53.83 Other fatigue; E78.00 Pure hypercholesterolemia, unspecified; I10 Essential (primary) hypertension; Z91.14 Patient's other noncompliance with medication regimen; Z88.0 Allergy status to penicillin; Z79.84 Long term (current) use of oral hypoglycemic drugs
CPT/HCPCS: 93005; 99283; 96372; 96360; 96361; 36415; 82962; 83735; 84443; 85025; 80053; 81001; 84484; 82803; 93010; J1815; J7030